=== PATIENT | female | born 1980 | race Caucasian/White ===

== ENCOUNTER → 2020-06-15 14:26 | Outpatient (CLI) | payer BC, SELFPAY ==
--- NOTE | ~2020-06-15 | XR_ITS ---
EXAMINATION: XR toe 3rd LT min 2V DATE: 06/15/2020 14:56 INDICATION: Unspecified injury to the left third toe with pain at the mid to distal to TECHNIQUE: Dorsal plantar, lateral and 2 oblique views of the left third were obtained. COMPARISON: None FINDINGS: Nondisplaced small intra-articular avulsion fracture at the dorsal rim of the third distal phalanx. N o significant fracture gap or incongruity at the articular surface. No periosteal reaction or other p roductive changes of healing yet apparent. No other fractures identified. Joint spaces are normal. So ft tissues are unremarkable. IMPRESSION: Nondisplaced intra-articular dorsal avulsion fracture at the base of the left third distal phalanx. Reviewed, dictated and finalized at location B. IAGE AND FAMILY THERAPIST IMPRESSION: Nondisplaced intra-articular dorsal avulsion fracture at the base of the left t hird distal phalanx.
== END ==
PROVIDERS: PCP Physician Assistant; Visit Provider Physician Assistant
DX: S92.535A Nondisplaced fracture of distal phalanx of left lesser toe(s), initial encounter for closed fracture (principal); X58.XXXA Exposure to other specified factors, initial encounter
CPT/HCPCS: 73660

== ENCOUNTER → 2023-06-03 15:32 | Outpatient (CLI) | payer BC, SELFPAY ==
--- NOTE | ~2023-06-03 | US_ITS ---
EXAMINATION: US thyroid DATE: 06/03/2023 16:25 INDICATION: Neck nodule. TECHNIQUE: Multiple ultrasound images of the thyroid were obtained. COMPARISON: None. FINDINGS: The right thyroid lobe measures 5.7 x 1.8 x 1.7 cm. The left thyroid lobe measures 6.5 x 1.7 x 2.0 c m. In the left thyroid lobe, there is a 9 mm mixed cystic and solid, isoechoic, wider than tall nodu le with smooth margin without echogenic foci (TI-RADS TR2). In the left thyroid lobe, there is a 7 mm solid, hypoechoic, wider than tall nodule with ill-defined margin without echogenic foci (TR4). In t he left thyroid lobe, there is a 3.1 cm solid, hypoechoic, aonhx-fpvf-yikt nodule with ill-defined ma rgin without echogenic foci (TR4). There are multiple nodules measuring up to 4 mm in right thyroid l obe. IMPRESSION: 1. Multinodular goiter. Ultrasound-guided fine-needle aspiration of the 3.1 cm left thyroid nodule is recommended. Reviewed, dictated and finalized at location E. NISTRATIVE STAFF SUPERVISOR
== END ==
PROVIDERS: PCP Internal Medicine; Visit Provider Internal Medicine
DX: E04.2 Nontoxic multinodular goiter (principal); R22.1 Localized swelling, mass and lump, neck
CPT/HCPCS: 76536

== ENCOUNTER 2025-05-06 16:46 | Emergency (ER) | payer BC, SELFPAY ==
--- OUTSIDE RECORDS SUMMARY | 2025-05-06 16:48 | XMS_ITS | Encounter Summary ---
Author Organization [facility] Address [facility]6 [place] [address] Care Team Providers Care Manager Aerospace Name Role Phone Ruth Dhillon MD Unavailable [phone] Gino Slaughter MD Primary Care Provider [phone] Miguel Baires MD Unavailable [phone] Encounter Details Date Type Department Care Team (Latest Contact Info) Description 06/04/2023 ATG Accesst Message Enc [facility] Medical Group Multispecialty Care - [place] [address] [address] [address] [place] [address] Gino Slaughter MD 1188 [facility] [address] [place] [address] Thyroid Ultrasound Social History Tobacco Use Types Packs/Day Years Used Date Smoking Tobacco: Never Smokeless Tobacco: Never Comments:Counseled by Dr. 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 [address] [place] [address] 05/30/2025 3:40 PM HARDWARE ASSEMBLER Office Visit [facility] Medical Group Multispecialty Care - [place] [address] [address] [address] [place], [place] [address] Gino Slaughter MD [address] [place] [address] 06/02/2025 11:30 AM HARDWARE ASSEMBLER [facility] [address] [place] [address] Britney Turner, FAMILY AND CONSUMER SCIENCES TEACHER 3 [facility], [facility] [address] [place] [address] documented as of this encounter Visit Diagnoses Not on filedocumented in this encounter Additional Health Concerns Assessment Noted Time PHQ-9 Depression Total Score: 0 06/01/19 24 1:52 PM HARDWARE ASSEMBLER documented as of this encounter Care Teams Manager Aerospace Relationship Specialty [place] [address] [place] [address] [address] [place] [address] PCP - General INTERNAL MEDICINE 12/26/20 Ruth Dhillon MD [facility]. [address] [place] [address] [place] Atm Mechanic CARDIOVASCULAR DISEASE 10/17/15 Miguel Baires MD Three [facility]. [facility] [address] [place], [place] [address] Toni Atm Mechanic CLINICAL CARDIAC ELECTROPHYSIOLOGY 03/20/25 documented as of this encounter
--- OUTSIDE RECORDS SUMMARY | 2025-05-06 16:48 | XMS_ITS | Encounter Summary ---
Author Organization [facility] Address [facility] [place] [address] Care Team Providers Care Cook Pie Name Role Phone Ruth Dhillon MD Unavailable [phone] Gino Slaughter MD Primary Care Provider [phone] Miguel Baires MD Unavailable [phone] Encounter Details Date Type Department Care Team (Late st Contact Info) Description 03/08/2023 MyChart Message Enc [facility] Medical Group Multispecialty Care - [place] [address] [place] [address] [address] [place] [address] Gino Slaughter MD 1188 [facility] [address] [place] [address] SIBO Social History Tobacco Use Types Packs/Day Years Used Date Smoking Tobacco: Never Smokeless Tobacco: Never Comments:Counseled by Dr. 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 [address] [place] [address] 05/30/2025 3:40 PM CIRCUS LABORER Office Visit [facility] Medical Group Multispecialty Care - [place] [address] [address] [address] [place], [place] [address] Gino Slaughter MD [address] [place] [address] 06/02/2025 11:30 AM CIRCUS LABORER [facility] [place] [facility] [address] [place] [address] Britney Turner, PARTS DATA WRITER 3 [facility], [facility] [address] [place] [address] documented as of this encounter Visit Diagnoses Not on filedocumented in this encounter Additional Health Concerns Assessment Noted Time PHQ-9 Depression Total Score: 0 11/14/19 22 8:34 AM CDT documented as of this encounter Care Teams Cook Pie Relationship Specialty Start Date End Date Gino Slaughter MD [address] [place] [address] PCP - General INTERNAL MEDICINE 12/26/20 Ruth Dhillon MD [facility]. [address] [place] [address] [place] Humanities Department Chair CARDIOVASCULAR DISEASE 10/17/15 Miguel Baires MD Three [facility]. [address] [place] [address] [place] Humanities Department Chair CLINICAL CARDIAC ELECTROPHYSIOLOGY 03/20/25 documented as of this encounter
--- OUTSIDE RECORDS SUMMARY | 2025-05-06 16:48 | XMS_ITS | Encounter Summary ---
Author Organization [facility] Address [facility] [place] [address] Care Team Providers Care Software Developer Name Role Phone Ruth Dhillon MD Unavailable [phone] Gino Slaughter MD Primary Care Provider [phone] Miguel Baires MD Unavailable [phone] Encounter Details Date Type Department Care Team (Late st Contact Info) Description 04/07/2024 MyChart Message Enc [facility] Medical Group Multispecialty Care - [place] [address] [address] [address] [place] [address] Gino Slaughter MD [address] [place] [address] [address] [place] [address] Prescription Social History Tobacco Use Types Packs/Day Years [...] Sex Assigned at Female 07/01/2024 2:14 PM TELEVISION ANNOUNCER Legal Sex Female 6:22 PM CDT Gender Identity Female 07/01/2024 2:24 PM TELEVISION ANNOUNCER Sexual Orientation Straight 07/01/2024 2: 24 PM TELEVISION ANNOUNCER 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. [address] [place] [address] 05/30/2025 3:40 PM TELEVISION ANNOUNCER Office Visit [facility] Medical Group Multispecialty Care - [place] [address] [address] [address] [place], [place] [address] Gino Slaughter MD [address] [place] [address] 06/02/2025 11:30 AM TELEVISION ANNOUNCER [facility], [facility] [address] [place] [address] Britney Turner, SHRINKER 3 [facility], [facility] [address] [place] [address] documented as of this encounter Visit Diagnoses Not on filedocumented in this encounter Additional Health Concerns Assessment Noted Time PHQ-9 Depression Total Score: 0 06/01/19 24 1:52 PM TELEVISION ANNOUNCER documented as of this encounter Care Teams Software Developer Relationship Specialty [place] [address] [place] [address] [address] [place] [address] PCP - General INTERNAL MEDICINE 12/26/20 Ruth Dhillon MD [facility]. [address] [place] [address] [place] Vending Machine Collector CARDIOVASCULAR DISEASE 10/17/15 Miguel Baires MD Three [facility]. [facility] [address] [place], [place] [address] Toni Vending Machine Collector CLINICAL CARDIAC ELECTROPHYSIOLOGY 03/20/25 documented as of this encounter
--- OUTSIDE RECORDS SUMMARY | 2025-05-06 16:48 | XMS_ITS | Encounter Summary ---
Author Organization [facility] Address [facility] [place] [address] Care Team Providers Care Mutual Fund Manager Name Role Phone Ruth Dhillon MD Unavailable [phone] Gino Slaughter MD Primary Care Provider [phone] Miguel Baires MD Unavailable [phone] Encounter Details Date Type Department Care Team (Late st Contact Info) Description 09/08/2022 MyChart Message Enc [facility] Medical Group Multispecialty Care - [place] [address] [place] [address] [address] [place] [address] Gino Slaughter MD 1188 [facility] [address] [place] [address] Sinus Infection Social History Tobacco Use Types Packs/Day Years [...] Sex Assigned at Female 07/01/2024 2:14 PM HEAD INSPECTOR Legal Sex Female 6:22 PM CDT Gender Identity Female 07/01/2024 2:24 PM HEAD INSPECTOR Sexual Orientation Straight 07/01/2024 2: 24 PM HEAD INSPECTOR 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 [address] [place] [address] 05/30/2025 3:40 PM HEAD INSPECTOR Office Visit [facility] Medical Group Multispecialty Care - [place] [address] [address] [address] [place], [place] [address] Gino Slaughter MD [address] [place] [address] 06/02/2025 11:30 AM HEAD INSPECTOR Office Visit [place] [facility], [facility] [address] [place] [address] Britney Turner, TEACHER EARLY CHILDHOOD DEVELOPMENT 3 [facility], [facility] [address] [place] [address] documented as of this encounter Visit Diagnoses Not on filedocumented in this encounter Additional Health Concerns Assessment Noted Time PHQ-9 Depression Total Score: 0 11/14/19 22 8:34 AM CDT documented as of this encounter Care Teams Mutual Fund Manager Relationship Specialty Start Date End Date Gino Slaughter MD [address] [place] [address] PCP - General INTERNAL MEDICINE 12/26/20 Ruth Dhillon MD [facility]. [address] [place] [address] [employer] Principal CARDIOVASCULAR DISEASE 10/17/15 Miguel Baires MD Three [facility]. [place] [address] [place] [address] [employer] Principal CLINICAL CARDIAC ELECTROPHYSIOLOGY 03/20/25 documented as of this encounter
--- OUTSIDE RECORDS SUMMARY | 2025-05-06 16:48 | XMS_ITS | Clinical Summary ---
Author Organization [facility] Administrative Offices Address [address] [place] [address] Care Team Providers Care Extender Name Role Phone Brenda Mcmahon MD Primary Care Provider Unavailab le Social History Tobacco Use Types Packs/Day Years Used Date Smoking Tobacco: Never Assessed Comments Unknown Sex and Gender Information Value Date Recorded Sex Assigned at Not on file Legal Sex Female 6:10 AM PROGRESSIVE ASSEMBLER AND FITTER Gender Identity Not on file Sexual Orientation Not on file Plan of Treatment Health Maintenance Due Date Last Done Comments DTAP/TDAP/TD VACCINES (1 - Tdap) 2001 HEPATITIS B VACCINES (1 of 3 - 19+ 3-dose series) 09/15 HPV/Cotest (21-29) 10/01/2003 CERVICAL CANCER SCREENING 2012 HPV/Cotest (30-65) 2012 PAP SMEAR 2012 BREAST CANCER SCREENING 2022 INFLUENZA VACCINE (#1) 2024 HPV VACCINES (No Doses Required) Completed Care Teams Extender Relationship Specialty Start Date End Date Brenda Mcmahon MD PCP - General Family Practice 11/18/11
--- OUTSIDE RECORDS SUMMARY | 2025-05-06 16:48 | XMS_ITS | Encounter Summary ---
Author Organization [facility] Address [facility] [place] [address] Care Team Providers Care Bone Char Kiln Operator Name Role Phone Ruth Dhillon MD Unavailable [phone] Gino Slaughter MD Primary Care Provider [phone] Miguel Baires MD Unavailable [phone] Encounter Details Date Type Department Care Team (Late st Contact Info) Description 02/10/2025 Bizily Message Enc [facility] THREE [facility], [facility] [address] [place] [address] Ruth Dhillon MD [facility]. [facility] [address] [place] [address] Follow up from appointment Social History Tobacco Use Types Packs/Day Years Used Date Smoking Tobacco: Never Smokeless Tobacco: Never Comments:Counseled by Dr. Awan ate Alcohol Use Standard Drinks/Week Comments Not Currently 0 (1 standard drink = 0.6 oz pur e alcohol) Socially 2/ month PHQ-2 Answer Date Recorded Patient Health Questionnaire-2 Score 0 06/01/2024 Comments No Sex and Gender Information Value Date Recorded Sex Assigned at Female 07/01/2024 2:14 PM DIE SINKER APPRENTICE Legal Sex Female 6:22 PM CDT Gender Identity Female 07/01/2024 2:24 PM DIE SINKER APPRENTICE Sexual Orientation Straight 07/01/2024 2: 24 PM DIE SINKER APPRENTICE Occupation Industry Job Start Date Job End Date [employer] Not on file Not on file Not on file documented as of this encounter Plan of Treatment Upcoming Encounters Date Type Department Care Team (Late st Contact Info) Description 05/15/2025 10:30 AM DIE SINKER APPRENTICE Office Visit [facility] THREE [facility], [address] [place] [address] Jennifer Eng, STRAW HAT MACHINE OPERATOR Three [facility]. [address] [place] [address] 05/30/2025 3:40 PM DIE SINKER APPRENTICE Office Visit [facility] Medical Group Multispecialty Care - [place] [address] [address] [address] [place], [place] [address] Gino Slaughter MD [address] [address] 06/02/2025 11:30 AM DIE SINKER APPRENTICE Office Visit [facility] [facility] [address] [place] [address] Britney Turner, STRAW HAT MACHINE OPERATOR 3 [facility], [facility] [address] [place] [address] documented as of this encounter Visit Diagnoses Not on filedocumented in this encounter Additional Health Concerns Assessment Noted Time PHQ-9 Depression Total Score: 1 06/01/19 25 4:58 PM DIE SINKER APPRENTICE documented as of this encounter Care Teams Bone Char Kiln Operator Relationship Specialty Start Date End Date Gino Slaughter MD 1188 [facility] [address] [place], [place] [address] PCP - General INTERNAL MEDICINE 12/26/20 Ruth Dhillon MD Three [facility]. [address] [place] [address] Toni Executive Director Sheltered Workshop CARDIOVASCULAR DISEASE 10/17/15 Miguel Baires MD Three [facility]. [facility] [address] [place] [address] Toni Executive Director Sheltered Workshop CLINICAL CARDIAC ELECTROPHYSIOLOGY 03/20/25 documented as of this encounter
--- OUTSIDE RECORDS SUMMARY | 2025-05-06 16:48 | XMS_ITS | Encounter Summary ---
Author Organization [facility] Address [facility] [place] [address] Care Team Providers Care Fly Finisher Name Role Phone Ruth Dhillon MD Unavailable [phone] Gino Slaughter MD Primary Care Provider [phone] Miguel Baires MD Unavailable [phone] Encounter Details Date Type Department Care Team (Late st Contact Info) Description 04/22/2023 MyChart Message Enc [facility] Medical Group Multispecialty Care - [place] [address] [address] [address] [place] [address] Gino Slaughter MD 1188 [facility] [address] [place] [address] Covid Social History Tobacco Use Types Packs/Day Years [...] Sex Assigned at Female 07/01/2024 2:14 PM RESOURCING ADVISOR Legal Sex Female 6:22 PM CDT Gender Identity Female 07/01/2024 2:24 PM RESOURCING ADVISOR Sexual Orientation Straight 07/01/2024 2: 24 PM RESOURCING ADVISOR 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 [address] [place] [address] 05/30/2025 3:40 PM RESOURCING ADVISOR Office Visit [facility] Medical Group Multispecialty Care - [place] [address] [address] [place], [place] [address] Gino Slaughter MD [address] [place] [address] 06/02/2025 11:30 AM RESOURCING ADVISOR Office [facility] [place] [facility], [facility] [address] [place] [address] Britney Turner, MAC DEVELOPER [address] [facility] [place], [facility] [address] [place] [address] documented as of this encounter Visit Diagnoses Not on filedocumented in this encounter Additional Health Concerns Assessment Noted Time PHQ-9 Depression Total Score: 0 11/14/19 22 8:34 AM CDT documented as of this encounter Care Teams Fly Finisher Relationship Specialty Start Date End Date Gino Slaughter MD [address] [place] [address] PCP - General INTERNAL MEDICINE 12/26/20 Ruth Dhillon MD [facility]. [address] [place] [address] [place] Roughener CARDIOVASCULAR DISEASE 10/17/15 Miguel Baires MD Three [facility]. [address] [place] [address] [place] Roughener CLINICAL CARDIAC ELECTROPHYSIOLOGY 03/20/25 documented as of this encounter
--- OUTSIDE RECORDS SUMMARY | 2025-05-06 16:48 | XMS_ITS | Encounter Summary ---
Author Organization [facility] Address [facility] [place] [address] Care Team Providers Care Production Assembly Operator Name Role Phone Ruth Dhillon MD Unavailable [phone] Gino Slaughter MD Primary Care Provider [phone] RustMiguel bartlett MD Unavailable [phone] Encounter Details Date Type Department Care Team (Late Contact Info) Description 04/30/2023 B[facility]stalk [facility] [address] [place] [address] 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 [address] [place] [address] 05/30/2025 3:40 PM METAL FURNITURE REPAIRER Office Visit [facility] Medical Group Multispecialty Care - [place] [address] [address] [address] [place] [address] Gino Slaughter MD 1188 [facility] [address] [place] [address] 06/02/2025 11:30 AM METAL FURNITURE REPAIRER Office Visit [place] [facility] THREE [facility], [address] [place] [address] Britney Turner, REVENUE DIRECTOR 3 [facility], [address] [place] [address] documented as of this encounter Visit Diagnoses Not on filedocumented in this encounter Additional Health Concerns Assessment Noted Time PHQ-9 Depression Total Score: 0 11/14/19 22 8:34 AM CDT documented as of this encounter Care Teams Production Assembly Operator Relationship Specialty [place] [address] [place] [address] [address] [place] [address] PCP - General INTERNAL MEDICINE 12/26/20 Ruth Dhillon MD [facility]. [address] [place] [address] [place] Surveillance System Monitor CARDIOVASCULAR DISEASE 10/17/15 Miguel Baires MD [facility]. [address] [place] [address] Toni Surveillance System Monitor CLINICAL CARDIAC ELECTROPHYSIOLOGY 03/20/25 documented as of this encounter
--- OUTSIDE RECORDS SUMMARY | 2025-05-06 16:48 | XMS_ITS | Encounter Summary ---
Author Organization [facility] - [facility] Address Formerly [facility] [place] [address] Care Team Providers Care Defense Analyst Name Role Phone Ruth Dhillon MD Unavailable [phone] Gino Slaughter MD Primary Care Provider [phone] Miguel Baires MD Unavailable [phone] Encounter Details Date Type Department Care Team (Latest Contact Info) Description 03/09/2025 Results Follow-Up [facility] - [place] [address] [address] [place] [address] Gino Slaughter MD [address] [address] CBC W/DIFF AUTOMATED, COMPREHENSIVE METABOLIC PANEL, LIPID PANEL Social History Tobacco Use Types Packs/Day Years [...] Sex Assigned at Female 07/01/2024 2:14 PM [employer] Legal Sex Female 6:22 PM CDT Gender Identity Female 07/01/2024 2:24 PM [employer] Sexual Orientation Straight 07/01/2024 2: 24 PM [employer] 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 [address] [place] [address] 05/30/2025 3:40 PM [employer]ACKAGING SAL[employer] Office Visit [facility] - [place] [address] [place] [address] [address] [place] [address] Gino Slaughter MD [address] [facility] [address] [place] [address] 06/02/2025 11:30 AM [employer]AGING SAL[employer] Office Visit [facility] [address] [place] [address] Britney Turner, EXPLOSIVE TECHNICIAN [address] [facility] [address] [place] [address] documented as of this encounter Visit Diagnoses Not on filedocumented in this encounter Additional Health Concerns Assessment Noted Time PHQ-9 Depression Total Score: 1 06/01/19 25 4:58 PM [employer] documented as of this encounter Care Teams Defense Analyst Relationship Specialty Start Date End Date Gino Slaughter MD [address] [facility] [address] [place], [place] [id number] PCP - General INTERNAL MEDICINE 12/26/20 Ruth Dhillon MD Three [facility]. [address] [place] [address] Toni Buckle Sorter CARDIOVASCULAR DISEASE 6/1/16 Miguel Baires MD Three [facility]. [facility] [address] [place] [address] Toni Buckle Sorter CLINICAL CARDIAC ELECTROPHYSIOLOGY 03/20/25 documented as of this encounter
--- OUTSIDE RECORDS SUMMARY | 2025-05-06 16:48 | XMS_ITS | Data Portability ---
Author Organization [employer] , [facility] Address [address] [place] [address] Assessment No assessment recorded. Plan of Treatment Reminders Order Date Submit Date Provider Last Modified By Organization Details Last Modified Time Details Appointments None recorded. Lab HPV E6+E7 mRNA, qualitativ e PCR, cervix 2023 024 [employer] [facility], [address] [place], [address], 4 09:05:42 pap, LB 2023 024 [employer] [facility], [address] [place], [address], 4 10:16:29 HPV E6+E7 mRNA, qualitativ e PCR, cervix 2021 022 [employer] [facility], [address] [place], [address], 2 17:54:54 pap, LB 2021 022 [employer] [facility], [address] [place], [address], 2 16:33:12 Referral gynecologi c surgery referral - Stage 4 endometrio sis 2021 022 priscila 3 Robert Grant MD, [address], [address], [place], [address], 2 16:08:49 Procedures None recorded. Surgeries None recorded. Imaging MAMMO, screening, digital, bilateral 2023 [facility], [address] [place], [address], 4 16:20:39 US, transvagin al 2021 022 Not available 07:57:47 Medication Orders Slynd 4 mg (28) tablet [address] [id number], [address] [place], [place], [id number], 4 09:59:38 Seasonique 0.15 mg-30 mcg (84)/10 mcg(7) tablets,3 month dose pack [address] [facility], [address] [place], [place], [id number], 4 09:23:49 Ortho Micronor 0.35 mg tablet [address] [facility]09743, [address] [place] [address], [id number], 4 09:23:57 Orilissa 150 mg tablet [address], [address] [place] [address], [place], [address], 10:09:35 Patient TargetsNo targets recorded. Patient Instructions Encounter Date Encounter Id Patient Instructions Last Modified By Organization Details Last Modified Time 07/02/2021 [id number] body mass index: care instructions Not available 07/02/2021 11:26:15 learning about depression screening Not available 07/02/2021 11:26:16 A healthy lifestyle: care instructions Not available 07/02/2021 11:26:15 substance use disorder: care instructions Not available 07/02/2021 11:26:16 control counseling Not available 07/02/2021 11:26:15 08/20/2023 [id number] A healthy lifestyle: care instructions Not available 08/20/2023 09:59:24 substance use disorder: care instructions Not available 08/20/2023 09:59:24 Following the [employer] Food Guide: Care Instructions Not available 08/20/2023 09:59:24 exercise program : getting started Not available 08/20/2023 09:59:24 - Continue to follow up with [facility] regarding endometriosis and hysterectomy - Consider alternative control options if necessary - Increase exercise intensity, incorporate more weight lifting, and aim for 10,000 steps per day - Consult a senior accounting associate for guidance on diet and weight management - Follow up with diagnostic testing and consultation for the partial lung collapse Not available 08/20/2023 11:46:05 Not available 2023 11:45:38 Reason for Referral Gynecologic Surgery Referral for Endometriosis of pelvis Stage 4 endometriosis Referring Physician: Kiana Ruiz, PLANNING SUPERVISOR, Encounter Date: 08/13/2021 Results Created Date Observation Date Name Description Value Unit Range Abnormal Flag Note LastModifiedBy Organization Detail LastModifiedTime 08/22/19 24 08/21/2023 HPV HIGH RISK HPV high risk Negati ve negati ve normal The HPV High Risk assay is inten ded for use as co-te sting with cytol ogy and not as a subst itute for regul ar cervi hilario cytol ogy scree virginie. This assay is not inten ded for use as a scree virginie devic e for women under age 30 with mason l cervi hilario cytol ogy. Not Available [address], [address], 08/22/2023 09:05:42 07/02/19 22 07/03/2021 HPV HIGH RISK HPV high risk Negati ve negati ve The HPV High Risk assay is inten ded for use as co-te sting with cytol ogy and not as a subst itute for regul ar cervi hilario cytol ogy scree virginie. This assay is not inten ded for use as a scree virginie devic e for women under age 30 with mason l cervi hilario cytol ogy. Not Available [facility] [address] [place], [address], 07/03/2021 17:54:54 07/02/19 22 07/08/2021 THINP REP TIS PAP clinical information: normal Infor matio n not provi ded Not Available [address] [address] [place], [address], 07/08/2021 16:33:12 07/02/19 22 07/08/2021 THINP REP TIS PAP LMP: normal NONE GIVEN Not Available [address] [address] [place], [address], 07/08/2021 16:33:12 07/02/19 22 07/08/2021 THINP REP TIS PAP prev. Pap: normal NONE GIVEN Not Available [facility] [address] [address] [place], [address], 07/08/2021 16:33:12 07/02/19 22 07/08/2021 THINP REP TIS PAP prev. BX: normal NONE GIVEN Not Available [address] [address] [place], [address], 07/08/2021 16:33:12 07/02/19 22 07/08/2021 THINP REP TIS PAP source: normal Cervi x Not Available [employer] [address] [address] [place], [address], 07/08/2021 16:33:12 07/02/19 22 07/08/2021 THINP REP TIS PAP statement of adequacy: normal Satis facto ry for evalu ation . Endoc ervic al/tr ansfo rmati on zone compo nent prese nt. Age and/o r menst rual statu s not provi ded Not Available [facility] [address] [place], [address], 07/08/2021 16:33:12 07/02/19 22 07/08/2021 THINP REP TIS PAP general categorizati on: abnormal EPITH ELIAL CELL ABNOR MALIT Y Not Available [address] [address] [place], [address], 07/08/2021 16:33:12 07/02/19 22 07/08/2021 THINP REP TIS PAP interpretati on/result: abnormal Atypi hilario Squam ous Cells of Undet ermin ed Signi fican ce (ASC- US) Not Available [address] [address] [place], [address], 07/08/2021 16:33:12 07/02/19 22 07/08/2021 THINP REP TIS PAP comment: normal This Pap test has been evalu ated with darío osei techn ology . Not Available [address] [address] [place], [address], 07/08/2021 16:33:12 07/02/19 22 07/08/2021 THINP REP TIS PAP cytotechnolo gist: normal MSJ, CT( CP) CT Scree virginie locat ion: [facility] [address] [facility] [place] [address] Not Available [address] [address] [place], [address], 07/08/2021 16:33:12 07/02/19 22 07/08/2021 THINP REP TIS PAP pathologist: normal Georgina Landa M.D. Board Certi fied in Anato samantha Patho logy, Clini hilario Patho logy and Cytop athol ogy, Speci conner edwards in Urolo gic Patho logy [phone] (elec troni c signa ture) Not Available [address] [address] [place], [address], 07/08/2021 16:33:12 07/02/19 22 07/08/2021 THINP REP TIS PAP comment EXPLA NATALMAS Y NOTE: The Pap is a scree virginie test for cervi hilario cance r. It is not a diagn ostic test and is subje ct to false negat john and false posit john resul ts. It is most relia ble when a satis facto ry sampl e, regul pushpa obtai memo, is submi tted with relev ant clini hilario findi ngs and histo ry, and when the Pap resul t is evalu ated along with histo margarito and curre nt clini hilario infor matio n. Not Available [address], [address], 07/08/2021 16:33:12 08/20/19 24 08/25/2023 THINP REP TIS PAP clinical information: normal None given Not Available [address], [address], 08/25/2023 10:16:29 08/20/19 24 08/25/2023 THINP REP TIS PAP LMP: normal NONE GIVEN Not Available [address], [address], 08/25/2023 10:16:29 08/20/19 24 08/25/2023 THINP REP TIS PAP prev. Pap: normal NONE GIVEN Not Available [address], [address], 08/25/2023 10:16:29 08/20/19 24 08/25/2023 THINP REP TIS PAP prev. BX: normal NONE GIVEN Not Available [address], [address], 08/25/2023 10:16:29 08/20/19 24 08/25/2023 THINP REP TIS PAP source: normal Cervi x Not Available [address] [place], [address], 08/25/2023 10:16:29 08/20/19 24 08/25/2023 THINP REP TIS PAP statement of adequacy: normal Satis facto ry for evalu ation . Endoc ervic al/tr ansfo rmati on zone compo nent prese nt. Age and/o r menst rual statu s not provi ded Not Available [address], [address], 08/25/2023 10:16:29 08/20/19 24 08/25/2023 THINP REP TIS PAP interpretati on/result: normal Cytol ogy Resul ts: Negat john for intra epith elial lesio n or muriel wilburn . Not Available [address] [address] [place], [address], 08/25/2023 10:16:29 08/20/19 24 08/25/2023 THINP REP TIS PAP comment: normal This Pap test has been evalu ated with compu ter ksenia ba techn ology . Not Available [address], [address], 08/25/2023 10:16:29 08/20/19 24 08/25/2023 THINP REP TIS PAP cytotechnolo gist: normal JONES, CT( CP) CT Scree [place]ie locat ion: [address] [place] [address] Not Available [facility] [address] [address] [place], [address], 08/25/2023 10:16:29 08/20/19 24 08/25/2023 THINP REP TIS PAP review cytotechnolo gist: normal MMD, CT( CP) CT Scree virginie Locat ion: [address] [address] [address] [place] [address] Not Available [facility] [address] [address] [place], [address], 08/25/2023 10:16:29 08/20/19 24 08/25/2023 THINP REP TIS PAP comment EXPLA NATOR Y NOTE: The Pap is a scree virginie test for cervi hilario cance r. It is not a diagn ostic test and is subje ct to false negat john and false posit john resul ts. It is most relia ble when a satis facto ry sampl e, regul pushpa obtai memo, is submi tted with relev ant clini hilario findi ngs and histo ry, and when the Pap resul t is evalu ated along with histo margarito and curre nt clini hilario infor matio n. Not Available [address] [address] [place], [address], 08/25/2023 10:16:29 07/20/19 22 07/18/2021 US, trans vagin al No observ ation record ed. [address], [place], [address], 06/02/2022 16:57:45 08/03/19 22 07/31/2021 elect hector isaac am No observ ation record ed. [address] [facility], [address], 08/03/2021 09:14:38 Result Notes None recorded. Problems Name Problem SNOMED Code Status Onset Date Resolution Date Notes Provider Name and Address Organization Details Recorded Time Prematur e beats 86339475 Completed 201203/31/2014 PVCs; Progress : Stable Added By: Brigette Ortega Add to Current Problems : NO ProblemS tatus: Resolve Not Available [facility] 2 19:51:40 Medical examinat ion for suspecte d conditio n Completed 201203/31/2014 Suspecte d anomaly not found; Progress : Stable Added By: Jimena Rowland Add to Current Problems : NO ProblemS tatus: Resolve Not Available [facility] 2 21:27:26 Abdomina l pain 20743894 Completed 201211/26/2012 Abdomina l cramping ; Progress : Stable Added By: Sergio Herrera Add to Current Problems : NO ProblemS tatus: Resolve Not Available [facility] 2 21:27:27 Exposure to organism Completed 201211/26/2012 Herpes Exposure ; Location : None Progress : Stable Added By: Cielo Mcgowan Add to Current Problems : NO ProblemS tatus: Resolve Not Available [facility] 2 21:27:25 IVF - in-vitro fertiliz ation pregnanc y [id number] 102 Completed 201211/26/2012 Pregnanc y resultin g from assisted reproduc tive technolo gy; Location : None Progress : Stable Added By: Cielo Mcgowan Add to Current Problems : NO ProblemS tatus: Resolve Pregnanc y resultin g from assisted reproduc tive technolo gy; Location : None Progress : Stable Added By: Cielo Mcgowan Add to Current Problems : NO ProblemS tatus: Resolve; Start Date : 10/14/19 13 Not Available [facility] 2 21:27:27 Genital herpes simplex 95519180 Completed 201211/26/2012 Herpes genital infectio n, unspecif ied; Progress : Stable Added By: Cielo Mcgowan Add to Current Problems : NO ProblemS tatus: Resolve Not Available [facility] 2 21:27:25 Routine antenata l care Completed 201211/26/2012 Pregnanc y; Location : None Progress : Stable Added By: Kiana Ruiz Add to Current Problems : NO ProblemS tatus: Resolve Pregnanc y; Location : None Progress : Stable Added By: Cielo Mcgowan Add to Current Problems : NO ProblemS tatus: Resolve; Start Date : 10/26/19 13 Pregn walter; Location : None Progress : Stable Added By: Kiana Ruiz Add to Current Problems : NO ProblemS tatus: Resolve; Start Date : 10/22/19 13 Pregn walter; Location : None Progress : Stable Added By: Kiana Ruiz Add to Current Problems : NO ProblemS tatus: Resolve; Start Date : 09/17/19 13 Not Available [facility] 2 19:51:40 Vaginiti s and vulvovag initis Completed 201507/24/2015 Vaginiti s; Severity : Moderate Progress : Stable Added By: Lacey Vazquez Add to Current Problems : NO ProblemS tatus: Resolve Not Available [facility] 1 05:33:38 [id number]106 Completed 201501/22/2016 Encounte r for supervis ion of other normal pregnanc y, third trimeste r; Progress : Stable Added By: Brooke Samaniego Add to Current Problems : NO ProblemS tatus: Resolve Not Available [facility] 2 21:27:27 Gestatio n period, 38 weeks 22466248 Completed 201501/22/2016 38 weeks gestatio n of pregnanc y; Progress : Stable Added By: Brooke Samaniego Add to Current Problems : NO ProblemS tatus: Resolve Not Available [facility] 2 21:27:27 Acute vaginiti s 54272707 Completed 201507/24/2015 Acute vaginiti s; Progress : Stable Added By: Lacey Vazquez Add to Current Problems : NO ProblemS tatus: Resolve Vaginiti s; Location : None Progress : Stable Added By: Lacey Vazquez Add to Current Problems : YES ProblemS tatus: Resolve Not Available [facility] 2 21:27:25 Normal pregnanc y 38786901 Completed 201501/22/2016 Medical visit for normal pregnanc y; Location : None Progress : Stable Added By: Brooke Samaniego Add to Current Problems : YES ProblemS tatus: Resolve Not Available [facility] 2 21:27:26 Antenata l screenin g Completed 201501/22/2016 Antenata l screenin g; unspecif ied; Location : None Progress : Stable Added By: Brooke Samaniego Add to Current Problems : YES ProblemS tatus: Resolve Encounte r for antenata l screenin g of mother; Progress : Stable Added By: Brooke Samaniego Add to Current Problems : NO ProblemS tatus: Resolve Antenata l screenin g for streptoc occus B; Location : None Progress : Stable Added By: Hannah Woodall Add to Current Problems : NO ProblemS tatus: Resolve; Start Date : 10/22/19 13 Not Available [facility] 2 21:27:28 Right lower quadrant pain 359548689 Completed 201510/23/2015 RLQ abdomina l pain; Progress : Stable Added By: Mohini Abbott Add to Current Problems : NO ProblemS tatus: Resolve Right lower quadrant pain; Progress : Stable Added By: Mohini Abbott Add to Current Problems : NO ProblemS tatus: Resolve Not Available [facility] 2 21:27:[address] Concept Completed 201501/22/2016 Decrease d movement s, third trimeste r, fetus 1; Progress : Stable Added By: Lacey Vazqeuz Add to Current Problems : NO ProblemS tatus: Resolve Not Available [facility] 2 21:27:27 Maternal care for diminish ed movement s Completed 201501/22/2016 Decrease d movement s, antepart um conditio n or complica tion; Progress : Stable Added By: Lacey Vazquez Add to Current Problems : NO ProblemS tatus: Resolve Not Available [facility] 2 21:27:[address] Concept Completed 201501/22/2016 Encounte r for follow-u p examinat ion after complete d treatmen t for conditio ns other than malignan t neoplasm ; Progress : Stable Added By: Lacey Vazquez Add to Current Problems : NO ProblemS tatus: Resolve Not Available [facility] 2 21:27:26 Surgical follow-u p - normal [id number] Completed 201501/22/2016 Follow-u p exam followin g surgery; Location : None Severity : Moderate Progress : Stable Added By: Lacey Vazquez Add to Current Problems : YES ProblemS tatus: Resolve Follow-u p exam followin g surgery; Severity : Moderate Progress : Stable Added By: Mariya Richmond Add to Current Problems : NO ProblemS tatus: Resolve; Start Date : 11/27/19 13 Not Available [facility] 1 09:49:45 Postoper ative follow-u p visit Completed 201501/22/2016 Follow-u p exam followin g surgery; Location : None Progress : Stable Added By: Lacey Vazquez Add to Current Problems : YES ProblemS tatus: Resolve Not Available [facility] 2 19:51:40 Lochia finding Completed 201510/23/2016 Encounte r for routine postpart um follow-u p; Progress : Stable Added By: Lacey Vazquez Add to Current Problems : NO ProblemS tatus: Resolve Not Available [facility] 2 21:27:26 Postpart um care Completed 201510/23/2016 Visit for routine postpart um follow-u p; Location : None Progress : Stable Added By: Lacey Vazquez Add to Current Problems : YES ProblemS tatus: Resolve Visit for routine postpart um follow-u p; Location : None Progress : Stable Added By: Zully Chapa Add to Current Problems : NO ProblemS tatus: Resolve; Start Date : 01/04/20 13 Not Available [facility] 2 21:27:26 Secondar y dysmenor toño 01288932 Active 2021 Kiana Ruiz MD [address] [place] [address], [phone] , [facility] [employer] [facility] 2 22:15:39 History of endometr iosis [id number] 299187 Active 2021 Kiana Ruiz MD [address] [place] [address], [phone] , [facility] [employer] 2 14:56:45 Problem Notes None recorded. Procedures Surgical History Date Name Laterality Status Provider Name and Address Organization Details Recorded Time 2023 Date of Last Pap Smear completed Kiana Ruiz MD [address] [place] [address], [phone], [facility] [employer] 4 08:39:52 2021 laparoscopy completed Kiana Ruiz MD [address] [place] [address] [place], [address], [place] [facility] 2 15:24:13 2011 in vitro fertilization completed Niesha Aug[facility] 2 13:52:32 2011 hysterosalpingography completed Niesha [employer] 2 13:56:09 Bx of cervix w/scope leep completed Niesha [employer] [facility] 2 13:51:52 section completed Niesha Aug[facility] 2 13:52:45 operative procedure on knee completed Niesha [employer] 2 13:53:13 C Section completed Rabia Addison [facility] 2 11:06:33 Imaging Results None recorded. Procedure Notes None recorded. Medical Equipment None Reported. Allergies Allergen ID Allergen Name Allergen Category Reaction Reaction Severity Criticality Documentation Date Start Date Code Code System Note Provider Name and Address Organization Details Recorded Time 093752 Shellfish (substanc e) food,medi cation Not available Not available Not available 03/08/20212012 99237 9006 SNOMED Sever ity: Moder ate; Not Available [facility] 1 01:05:07 193853 spinach allergeni c extract food,medi cation Not available Not available Not available 03/08/20212012 39547 7 RxNorm Sever ity: Moder ate; Not Available [facility] 1 01:05:08 Medications Name Sig Start Date Stop Date Status Note LastModified by Organization Details LastModified Time clindamyc in HCl 300 mg capsule 1 tablet by mouth BID X 7 days. 06/22 completed Clindamy falguni HCl 300mg Capsules RxNorm: 383702 Allow Substitu tion: True Refill Denied: No Not Available Not Available Not Available ibuprofen 800 mg tablet 08/13 completed Not Available Not Available Not Available fluoxetin e 10 mg tablet 08/19 completed Not Available Not Available Not Available Vitamin tablet Take 1 taablet by mouth daily. 07/14 completed Multivit barber Tablet Allow Substitu tion: True Refill Denied: No Not Available Not Available Not Available oxycodone -acetamin ophen 5 mg-325 mg tablet TAKE 1 TO 2 TABLETS BY MOUTH EVERY 4 HOURS NEEDED FOR PAIN 08/19 completed Not Available Not Available Not Available alprazola m 0.25 mg tablet active Not Available Not Available Not Available estradiol 1 mg tablet active Not Available Not Available Not Available fluoromet holone 0.1 % eye drops,dunia pension SHAKE LIQUID AND INSTILL 1 DROP IN BOTH EYES EVERY DAY 08/19 completed Not Available Not Available Not Available docusate sodium 100 mg capsule TAKE 1 CAPSULE BY MOUTH TWICE DAILY NEEDED FOR CONSTIPA TION 08/19 completed Not Available Not Available Not Available sertralin e 25 mg tablet TAKE 1 TABLET BY MOUTH DAILY active Not Available Not Available No t Available Valtrex 500 mg tablet Take one tab by mouth twice daily for 5 days then one tab by mouth daily 01/23 completed Valtrex 500mg Tablet RxNorm: 846643 Allow Substitu tion: True Refill Denied: No Not Available Not Available Not Available lotepredn ol etabonate 0.5 % eye drops,dunia pension 08/19 completed Not Available Not Available Not Available norethind jacob (contrace ptive) 0.35 mg tablet Take 1 tablet every day by oral route. 08/19 completed Not Available Not Available Not Available ondansetr on 4 mg disintegr ating tablet 08/19 completed Not Available Not Available Not Available oxycodone 5 mg tablet 08/19 completed Not Available Not Available Not Available moxifloxa falguni 0.5 % eye drops INSTILL 1 DROP IN BOTH EYES TWICE DAILY 08/19 completed Not Available Not Available Not Available progester one 06/22 completed Progeste jacob Allow Substitu tion: True Refill Denied: No Refill DateOccu rred: 05/25/19 16 Not Available Not Available Not Available ibuprofen PRN 03/31 completed Ibuprofe n 800mg Tablet RxNorm: 551163 Allow Substitu tion: True Refill Denied: No Refill DateOccu rred: 11/27/19 13 Not Available Not Available Not Available Orilissa 150 mg tablet Take 1 tablet every day by oral route. 08/13 completed Not Available Not Available Not Available Simpesse 0.15 mg-30 mcg (84)/10 mcg(7) tablets,3 month dose pack TAKE 1 TABLET BY MOUTH EVERY DAY 08/19 completed Not Available Not Available Not Available Slynd 4 mg (28) tablet Take 1 tablet every day by oral route. 2023 active Not Available Not Available Not Avai lable COVID-19 test specimen collectio n TEST DIRECTED TODAY 07/02 completed Not Available Not Available Not Available Vitals Date Recorded Body height Body mass index (BMI) Body weight Body temperature Systolic And Diastolic Provider Name and Address Organization Details Last Updated DateTime 07/02/2021 175.26 cm 29.2 kg/m2 61136.2 9 g 97.9 [degF] 128/78 mm[Hg] Rabia Addison [facility] 11:11:36 Date Recorded Body height Provider Name an d Address Organization Details Last Updated DateTime 07/18/2021 175.26 cm Rabia Addison [facility] 07/18/2021 10:26:42 Date Recorded Body height Body mass index (BMI) Body weight Body temperature Systolic And Diastolic Provider Name and Address Organization Details Last Updated DateTime 08/13/2021 175.26 cm 26.8 kg/m2 23136.3 7 g 98 [degF] 122/76 mm[Hg] Rabia Addison [facility] 10:07:25 Date Recorded Body height Body mass index (BMI) Body weight Systolic And Diastolic Provider Name and Address Organization Details Last Updated DateTime 08/20/2023 175.26 cm 29.5 kg/m2 64962.47 g 126/70 mm[Hg] Rabia Addison [facility] 08/20/2023 09:22:19 Social History Question Answer Notes LastModified by Organizat ion Details LastModified Time Tobacco Smoking Status Never Smoker Rabia Addison [facility] 07/02/2021 11:06:33 Are You Blind Or Do You Have Difficulty Seeing? [id number] Information not available 08/20/2023 Are You Deaf Or Do You Have Serious Difficulty Hearing? No [email or web address] Information not available 08/20/2023 What Type Of Diet Are You Following? REGULAR [email or web address] Information not available 07/02/2021 How Many Children Do You Have? 2 [email or web address] Information not available 08/20/2023 Are There Any Occupational Health Risks Where You Work? No [email or web address] Information not available 08/20/2023 What Is Your Relationship Status? Information not available 06/30/2021 Are You Sexually Active? Yes Information not available 06/30/2021 What Types Of Sporting Activities Do You Participate In? Running, Cycling [email or web address] Information not available 08/20/2023 Sex: Unknown Functional Status Question Answer Note LastModified by Organizat ion Details LastModified Time Do you use any illicit or recreational drugs? No [email or web address] Information not available 08/20/2023 What is your level of alcohol consumption? Occasional [email or web address] Information not available 07/02/2021 Are you currently employed? 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 Never used electronic cigarettes [email or web address] Information not available 07/02/2021 What is your exercise level? Moderate [email or web address] Information not available 08/20/2023 Mental Status None recorded. Family History Relationship Description Onset Age of this Age Resolved Age Notes LastModified by Organization Details LastModified Time Father No current problems or disability [email or web address] Not available 06/18 11:06:32 Father Cerebrovascu lar accident [email or web address] Not available 11:06:32 Mother No current problems or disability [email or web address] Not available 06/18 11:06:32 Maternal Grandmother Heart disease [email or web address] Not available 07/02 11:06:32 Medical History Condition Response Anxiety Disorder Y History of Abnormal Pap Y Gynecological History Statement/Question Response Flow Heavy Date of last HPV 08/22/2023 Frequency of Cycle (Q days) 28 Date of LMP 2022 Date of Last Pap Smear 08/20/2023 Duration of Flow (days) 7 Most Recent Mammogram Current Control Method Hysterectom y Age at Menarche 12 Obstetrics History GPAL:G 2 P 2 0 0 2 Type Value Multiple Births 0 Full Term 2 Induced 0 Spontaneous 0 Premature 0 Living 2 Ectopics 0 Total 2 Past Encounters Encounter ID Performer Location Encounter Start Date Encounter Closed Date Diagnosis/Indication Diagnosis SNOMED-CT Code Diagnosis ICD10 Code Diagnosis IMO Codes Diagnosis Note [id number] Kiana Ruiz MD [address] [phone] 07/02/2021 10:32:57 07/03/2021 11:53:38 Gynecologic examination 71498542 Z01.419 Screening for malignant neoplasm of cervix 055209872 Z12.4 Surveillan ce of contraception 615048808 Z30.40 Secondary dysmenorrhea 82377905 N94.5 given patient's infertilit y history, dysmenorrh ea and pelvic pain, highly suspect endometrio sis at the root cause. Plan follow up u/s. We discussed empiric treatment vs surgery. Given patient's son's medical condition and clinical trial he is in at this time, Patient would like to avoid surgery, but plans for it in the future. [id number] Kiana Ruiz MD [address] [address] 07/18/2021 10:05:51 07/18/2021 12:10:09 Secondary dysmenorrhea 93296671 N94.5 Follow up u/s today. Discussed my continued concern for endometrio sis. Attempting to get Orilissa approved. Recommende d operative laparoscop y to evaulate for endometrio sis. Reviewed risks and benefits. Patient agrees to proceed. [id number] Kiana Ruiz MD [address] [address] 08/13/2021 09:59:24 08/13/2021 11:53:34 Postoperative visit [id number] Z09 Discussed postoperat john pathology with patient. Reviewed Surgical findings. Patient instructed that she may return to routine activities . All of her questions were answered. Endometrio sis of pelvis 19908846 N80.3 patient has Stage 4 endometrio sis. Doesn't want to take orilissa or Lupron. She is more interested in continuing contracept ion and is open to hysterecto my. Refer to [facility] pelvic pain specialist . change to SUNDAY since patient not interested in trying Orilissa again. [id number] Kiana Ruiz MD [facility] [address] [facility] [place] [address] 08/20/2023 08:57:52 08/20/2023 13:35:02 Gynecologic examination 17814549 Z01.419 Difficulty losing weight: The patient is struggling with weight loss despite regular exercise. The patient should consider increasing the intensity of exercise, incorporat ing more weight lifting, and aiming for 10,000 steps per day. Consultati on with a senior accounting associate for guidance on diet and weight management may also be beneficial . Screening for malignant neoplasm of breast 375308315 Z12.39 Depression screening 171 543726 Z13.31 Screening for malignant neoplasm of vagina 549822769 Z12.72 [facility] recommende d that she follow up with paps due to prior history of abnormal Endometrio sis (clinical) 188086899 N80.9 Hysterecto my and endometrio sis: The patient underwent a 12-hour surgery with removal of uterus, tubes, appendix, and scraping of dye. The ovaries were preserved and pinned up. The patient is currently on Slynd as control and is experienci ng no periods since the surgery. The patient should continue to follow up with [facility], and consider alternativ e control options if necessary. Partial lung collapse: The patient experience d a partial lung collapse in April, possibly due to endometrio sis in the pleural cavity. Brayan is seeing Cardiothor acic surgery for possible VATS procedure in the summertime . Health Concerns Section Related Observation LastModified by Organization Detai ls LastModified Time None Recorded Concern Status LastModified by Organization Details LastModified Time None Recorded Advance Directives Directive None Recorded Payers Insurance Date Sequence Insurance Name Policy Number Policy Fish Covered Member ID Fish Member ID Guarantor Name 08/17/2023 1 [place] [id number] Brayan Brandon [id number] Brayan Brandon Notes Date Note Type Note Provider Name and Address Organization Details Recorded Time 2 text/html Annual GYNReported by PatientGenitourinary symptomsFor menstrual cycle, patient reportssevere dysmenorrhea (for two days during menstruation, has had to leave work on a couple of occasions, has been getting worse progressively.)(period pain x 6 months). For urinary symptoms, patient reportsno hematuriaandno incontinence. For vulva, patient reportsno genital lesion. For vagina, patient reportsnormal vaginal discharge.Breast symptomsFor breast, patient reportsno breast pain,no breast lump, andno nipple discharge.Endocrine symptomsFor sexual complaints, patient reportspain during intercoursebut reportsno sexual complaints.Psychological symptomsFor psychological symptoms, patient reportsanxietybut reportsno depression.Preventative measuresFor preventive measures, patient reportsencourage self breast examinationandencourage regular exercise. Brayan here for annual well women visit Kiana Ruiz MD [address] [place] [address], [phone], [employer] 07/04/2021 15:54:54 2 text/html Pelvic PainReported by PatientHPIFor location, patient reportsbilateral. For onset/timing, patient reports>6 months. For duration, patient reportsintermittent. For quality, patient reportsachingandcramping. For severity, patient reportsmoderate. For alleviating factors, patient reportsoral contraceptives. For associated symptoms, patient reportsno chills,no constipation,no diarrhea,no vaginal discharge,no pain with urination,normal emptying of bladder,no feelings of urgency,no blood in the urine,normal libido,no fever,no nausea,no vomiting,no nocturia,no sexual abuse,no ectopic pregnancies,no endometriosis,no urinary frequency,no vaginal itching or irritation, andno dyspareunia.ROS as noted in the HPI Brayan here for f/u pelvic pain iKana Ruiz MD [address] [place] [address], [phone], [employer] 08/02/2021 07:58:00 2 text/html Post-OpReported by PatientHPIFor onset/timing, patient reportsdate of surgery: (07/31/2021). For quality, patient reportsprocedure: (operative lap / bx endometriosis, drainage bilateral ovarian cyst). For associated symptoms, patient reportsincision healing well,no fatigue,normal appetite,normal bowel function,no constipation,no nausea,no emesis,pain improving,no fever,no bleeding,no lower extremity edema/pain, andno dysuria/urinary symptoms.patient states she did not tolerate orilissa. Greatly affected mood. Brayan here for 2 week post op visit Kiana Ruiz MD [address] [place] [address], [phone], [employer] 08/13/2021 10:47:13 4 text/html Annual GYNReported by PatientGenitourinary symptomsFor urinary symptoms, patient reportsno hematuriaandno incontinence. For vulva, patient reportsno genital lesion. For vagina, patient reportsnormal vaginal discharge. For menstrual cycle, (hysterectomy).Breast symptomsFor breast, patient reportsno breast pain,no breast lump, andno nipple discharge.ContraceptionFor current contraception, patient reportsoral contraceptives(hysterectomy ).Endocrine symptomsFor menopausal symptoms, patient reportshot flashes(weight gain). For sexual complaints, patient reportsno sexual complaintsandno pain during intercourse. Brayan 42 y/o here for annual well women visit, she is post hysterectomy (09/2022), Last pap 07/02/2021, never had mammogram , she is on control slynd for endometriosis , c/o hot flashes and weight gain The patient is a 42-year-old female who underwent a hysterectomy procedure in March. The surgery lasted for 12 hours and involved the removal of the uterus, tubes, appendix, and scraping of the dye. The patient's ovaries were preserved and pinned up. The patient also had endometriosis on the diaphragm, bowels, and outside of the bladder. The bowel was partially shaved, and the patient was discharged the day after surgery. The patient started exercising in May but experienced a partial lung collapse in April, possibly due to endometriosis in the pleural cavity. The patient is currently on Slynd as control and is struggling with weight loss despite exercising regularly. Kiana Ruiz MD [address] [place] [address], [place], [phone], [facility] 08/20/2023 11:46:27 OBGyn Episode Ob Episode Information Episode Created Date Number of Fetuses Patient Bloodtype Patient rh Status Prepregnancy Weight lbs Domestic Partner Domestic Partner Phone Father Name Performance Improvement Consultant Status 08/02/19 22 1 CLOSED Fetus Data First Name Last Name Admitted to NICU Weight (g) Sex Living Outcome Pediatric Complications Fetus ID Race Codes Race Delivery Type 3175.14 4 M Full Term [id number] Primary Daniel Calculation Initial Daniel Date Initial Exam Date Initial Exam Provider Initial Ultrasound Date Last Menstrual Period Date Ultra Sound Weeks Gestation 0 Eighteen To Twenty Week Daniel Update Ultra Sound Date Fundal Height At Umbil Quickening Date Ultra Sound Latest Weeks Gestation Final Daniel Confirmed By Final Daniel Confirmed Date Final Daniel Date Ultra Sound Latest Days Gestation 0 0 Menstrual History Last Menstrual Date Menses Monthly On Bcp Conception Prior Menses Frequency Hcg Plus Date Menarche Onset Age Delivery Information Delivery Date Delivery Type Labor Anesthesia Weeks Gestation Incision Type Labor Labor Length Hrs Delivered By Post Complications Tubal Sterilization Discharge Date Comments 3 39 false Comments : Labored to complete, Pushed for 3 hours, Polyhydra mnios Discharge Information Feeding Method Contraceptive Method Maternal HG B and HCT Levels Ob Episode Information Episode Created Date Number of Fetuses Patient Bloodtype Patient rh Status Prepregnancy Weight lbs Domestic Partner Domestic Partner Phone Father Name Performance Improvement Consultant Status 08/02/19 22 1 CLOSED Fetus Data First Name Last Name Admitted to NICU Weight (g) Sex Living Outcome Pediatric Complications Fetus ID Race Codes Race Delivery Type 2721.55 2 M Full Term [id number] Repeat Daniel Calculation Initial Daniel Date Initial Exam Date Initial Exam Provider Initial Ultrasound Date Last Menstrual Period Date Ultra Sound Weeks Gestation 0 Eighteen To Twenty Week Daniel Update Ultra Sound Date Fundal Height At Umbil Quickening Date Ultra Sound Latest Weeks Gestation Final Daniel Confirmed By Final Daniel Confirmed Date Final Daniel Date Ultra Sound Latest Days Gestation 0 0 Menstrual History Last Menstrual Date Menses Monthly On Bcp Conception Prior Menses Frequency Hcg Plus Date Menarche Onset Age Delivery Information Delivery Date Delivery Type Labor Anesthesia Weeks Gestation Incision Type Labor Labor Length Hrs Delivered By Post Complications Tubal Sterilization Discharge Date Comments 6 40 false Discharge Information Feeding Method Contraceptive Method Maternal HG B and HCT Levels
--- OUTSIDE RECORDS SUMMARY | 2025-05-06 16:49 | XMS_ITS | Encounter Summary ---
Author Organization [facility] Address [facility] [place] [address] Care Team Providers Care Sealer Sander Name Role Phone Ruth Dhillon MD Unavailable [phone] Gino Slaughter MD Primary Care Provider [phone] Miguel Baires MD Unavailable [phone] Encounter Details Date Type Department Care Team (Late st Contact Info) Description 06/08/2024 MyChart Message Enc [facility] Multispecialty Care [place] [address] [place] [address] [address] [place] [address] Gino Slaughter MD [address] [facility] [address] [place] [address] Bloodwork Social History Tobacco Use Types Packs/Day Years [...] Sex Assigned at Female 07/01/2024 2:14 PM JACQUARD LOOM WEAVER Legal Sex Female 6:22 PM CDT Gender Identity Female 07/01/2024 2:24 PM JACQUARD LOOM WEAVER Sexual Orientation Straight 07/01/2024 2: 24 PM JACQUARD LOOM WEAVER 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 [address] [place] [address] 05/30/2025 3:40 PM JACQUARD LOOM WEAVER Office Visit [facility] Multispecialty Care - [place] [address] [address] [place], [place] [id number] Gino Slaughter MD [address] [place] [address] 06/02/2025 11:30 AM JACQUARD LOOM WEAVER [facility] [address] [place] [address] Britney Turner, ANIMAL ASSISTED THERAPIST [address] [facility], [facility] [address] [place] [address] documented as of this encounter Visit Diagnoses Not on filedocumented in this encounter Additional Health Concerns Assessment Noted Time PHQ-9 Depression Total Score: 1 06/01/19 25 4:58 PM JACQUARD LOOM WEAVER documented as of this encounter Care Teams Sealer Sander Relationship Specialty [place] [address] [place] [address] [address] [place] [address] PCP - General INTERNAL MEDICINE 12/26/20 Ruth Dhillon MD [facility]. [address] [place] [address] Fleming Sponge Press Operator CARDIOVASCULAR DISEASE 10/17/15 Miguel Baires MD Three [facility]. [facility] [address] [place] [address] Toni Sponge Press Operator CLINICAL CARDIAC ELECTROPHYSIOLOGY 03/20/25 documented as of this encounter
--- OUTSIDE RECORDS SUMMARY | 2025-05-06 16:49 | XMS_ITS | Encounter Summary ---
Author Organization [facility] Address [facility] [place] [address] Care Team Providers Care Radioactive Waste Disposal Dispatcher Name Role Phone Ruth Dhillon MD Unavailable [phone] Gino Slaughter MD Primary Care Provider [phone] Miguel Baires MD Unavailable [phone] Encounter Details Date Type Department Care Team (Late st Contact Info) Description 04/17/2025 [facility] Message Enc [place] [facility] [facility], [facility], [place] [address] [place] [address] Miguel Baires MD [facility]. 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 Maybe she can try propranolol instead of verapamil. ANOLOGY PROFESSOR * MARILYN Brasher - 04/21/2025 9:[address] Baires is wanting to get her in for repeat EP study. ANOLOGY PROFESSOR documented in this encounter Plan of Treatment Upcoming Encounters Date Type Department Care Team (Late st Contact Info) Description 05/15/2025 10:30 AM VOLCANOLOGY PROFESSOR Office Visit [place] [facility] THREE [facility], [facility], [place] [address] [place], [place] [address] Jennifer Eng APRN Three [facility] [address] [place], [place] [address] 05/30/2025 3:40 PM VOLCANOLOGY PROFESSOR Office Visit [facility] Multispecialty Care - [place] [address] [address] [place] [address] [place] [address] [place] [address] [address] [place] [address] 06/02/2025 11:30 AM VOLCANOLOGY PROFESSOR Office Visit [place] [facility] THREE [facility], [facility], [place] [address] [place], [place] [address] Britney Turner APRN 3 [facility], [facility], [place] [address] [place], [place] [address] documented as of this encounter Visit Diagnoses Not on filedocumented in this encounter Additional Health Concerns Assessment Noted Time PHQ-9 Depression Total Score: 1 06/01/19 25 4:58 PM VOLCANOLOGY PROFESSOR documented as of this encounter Care Teams Radioactive Waste Disposal Dispatcher Relationship Specialty Start Date End Date Gino Slaughter MD [address] [facility] [address] [place] [address] PCP - General INTERNAL MEDICINE 12/26/20 Ruth Dhillon MD Three [facility]. [place] [address] [place], [place] [address] Toni Software Project Lead CARDIOVASCULAR DISEASE 10/17/15 Miguel Baires MD [facility]. [facility] [address] [place], [place] [address] Toni Software Project Lead CLINICAL CARDIAC ELECTROPHYSIOLOGY 03/20/25 documented as of this encounter
--- OUTSIDE RECORDS SUMMARY | 2025-05-06 16:49 | XMS_ITS | Encounter Summary ---
Author Organization [facility] Address [facility] [place] [address] Care Team Providers Care Dehydrogenation Converter Operator Name Role Phone Ruth Dhillon MD Unavailable [phone] Gino Slaughter MD Primary Care Provider [phone] Miguel Baires MD Unavailable [phone] Encounter Details Date Type Department Care Team (Late st Contact Info) Description 11/02/2023 [employer] Message Enc [place] [facility] THREE [facility], [facility] [address] [place] [address] Ruth Dhillon MD Three [facility]. 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 [address] [place] [address] 05/30/2025 3:40 PM COMMUNITY DEVELOPMENT OFFICER Office Visit [facility] Multispecialty Care - [place] [address] [address] [place], [place] [phone] Gino Slaughter MD [address] [facility] [address] [place] [address] 06/02/2025 11:30 AM COMMUNITY DEVELOPMENT OFFICER Office Visit [place] [facility] [facility] [place] [address] [place] [address] Britney Turner, SHARPLES MACHINE OPERATOR [address] [facility], [facility] [address] [place] [address] documented as of this encounter Visit Diagnoses Not on filedocumented in this encounter Additional Health Concerns Assessment Noted Time PHQ-9 Depression Total Score: 0 06/01/19 24 1:52 PM COMMUNITY DEVELOPMENT OFFICER documented as of this encounter Care Teams Dehydrogenation Converter Operator Relationship Specialty Start Date End Date Gino Slaughter MD [address] [facility] [address] [place], [place] [id number] PCP - General INTERNAL MEDICINE 12/26/20 Ruth Dhillon MD [facility]. [address] [place] [address] [place] Party Plan Sales Unit Advisor CARDIOVASCULAR DISEASE 10/17/15 Miguel Baires MD Three [facility]. [facility] [address] [place] [address] [employer] Party Plan Sales Unit Advisor CLINICAL CARDIAC ELECTROPHYSIOLOGY 03/20/25 documented as of this encounter
--- OUTSIDE RECORDS SUMMARY | 2025-05-06 16:49 | XMS_ITS | Encounter Summary ---
Author Organization [facility] Address [facility] [place] [address] Care Team Providers Care Washcloth Folder Name Role Phone Ruth Dhillon MD Unavailable [phone] Gino Slaughter MD Primary Care Provider [phone] Miguel Baires MD Unavailable [phone] Encounter Details Date Type Department Care Team (Late st Contact Info) Description 03/22/2025 CryoLife Message Enc [place] [facility] THREE [facility], [facility] [address] [place] [address] Miguel Baires MD [facility]. 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 [address] [place] [address] 05/30/2025 3:40 PM LICENSED DISPENSING OPTICIAN Office Visit [facility] Multispecialty Care - [place] [address] [address] [place], [place] [phone] Gino Slaughter MD [address] [facility] [address] [place] [address] 06/02/2025 11:30 AM LICENSED DISPENSING OPTICIAN Office Visit [facility] [facility] [place] [address] [place] [address] Britney Turner, RODENT CONTROL WORKER 3 [facility], [facility] [address] [place] [address] documented as of this encounter Visit Diagnoses Not on filedocumented in this encounter Additional Health Concerns Assessment Noted Time PHQ-9 Depression Total Score: 1 06/01/19 25 4:58 PM LICENSED DISPENSING OPTICIAN documented as of this encounter Care Teams Washcloth Folder Relationship Specialty Start Date End Date Gino Slaughter MD [address] [facility] [address] [place] [address] PCP - General INTERNAL MEDICINE 12/26/20 Ruth Dhillon MD Three [facility]. [address] [place] [address] Toni Aoc Director Intelligence Officer CARDIOVASCULAR DISEASE 10/17/15 Miguel Baires MD Three [facility]. [facility] [address] [place] [address] Toni Aoc Director Intelligence Officer CLINICAL CARDIAC ELECTROPHYSIOLOGY 03/20/25 documented as of this encounter
--- OUTSIDE RECORDS SUMMARY | 2025-05-06 16:49 | XMS_ITS | Encounter Summary ---
Author Organization [facility] Address [facility] [place] [address] Care Team Providers Care Expediter Name Role Phone Ruth Dhillon MD Unavailable [phone] Gino Slaughter MD Primary Care Provider [phone] Miguel Baires MD Unavailable [phone] Encounter Details Date Type Department Care Team (Late st Contact Info) Description 05/05/2025 Eventbrite Message Enc [place] [facility] THREE [facility], [facility] [address] [place] [address] Miguel Baires MD [facility]. 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. [address] [place] [address] 05/30/2025 3:40 PM RIBBON WINDER Office Visit [facility] Medical Group Multispecialty Care - [place] [address] [address] [place], [place] [address] Gino Slaughter MD 1188 [facility] [address] [place] [address] 06/02/2025 11:30 AM RIBBON WINDER Office Visit [place] [facility] [facility] [place] [address] [place] [address] Britney Turner, MARKET ANALYSIS DIRECTOR 3 [facility], [facility] [address] [place] [address] documented as of this encounter Visit Diagnoses Not on filedocumented in this encounter Additional Health Concerns Assessment Noted Time PHQ-9 Depression Total Score: 1 06/01/19 25 4:58 PM RIBBON WINDER documented as of this encounter Care Teams Expediter Relationship Specialty Start Date End Date Gino Slaughter MD 1188 [facility] [address] [place] [address] PCP - General INTERNAL MEDICINE 12/26/20 Ruth Dhillon MD Three [facility]. [address] [place] [address] Toni Art Gallery Internship CARDIOVASCULAR DISEASE 10/17/15 Miguel Baires MD Three [facility]. [facility] [address] [place] [address] Toni Art Gallery Internship CLINICAL CARDIAC ELECTROPHYSIOLOGY 03/20/25 documented as of this encounter
--- OUTSIDE RECORDS SUMMARY | 2025-05-06 16:49 | XMS_ITS | Encounter Summary ---
Author Organization [facility] Address [facility] [place] [address] Care Team Providers Care Sales Marketing Manager Name Role Phone Ruth Dhillon MD Unavailable [phone] Ja Chase MD Primary Care Provider [phone] Gino Slaughter MD Primary Care Provider [phone] [facility] MD Unavailable [phone] Encounter Details Date Type Department Care Team (Late st Contact Info) Description 07/03/2017 Abstract [facility] at [address] [address] Yaneli Howe MA Social History Tobacco Use Types Packs/Day Years Used Date Smoking Tobacco: Never Smokeless Tobacco: Never Alcohol Use Standard Drinks/Week Comments Yes 0 (1 standard drink = 0.6 oz pur e alcohol) Socially Comments Unknown Sex and Gender Information Value Date Recorded Sex Assigned at Female 07/01/2024 2:14 PM SUPERVISOR CONCRETE PIPE PLANT Legal Sex Female 6:22 PM CDT Gender Identity Female 07/01/2024 2:24 PM SUPERVISOR CONCRETE PIPE PLANT Sexual Orientation Straight 07/01/2024 2: 24 PM SUPERVISOR CONCRETE PIPE PLANT 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 Not on file Not on file documented as of this encounter Plan of Treatment Upcoming Encounters Date Type Department Care Team (Late st Contact Info) Description 05/15/2025 10:30 AM SUPERVISOR CONCRETE PIPE PLANT Office Visit [facility], [address] [place] [address] Jennifer Eng, MANAGER UNION Three [facility] [address] [place] [address] 05/30/2025 3:40 PM SUPERVISOR CONCRETE PIPE PLANT Office Visit [facility] Medical Group Multispecialty Care - [place] 1188 [facility] 157 [address] [place] [address] Gino Slaughter MD 1188 [facility] [address] [place] [address] 06/02/2025 11:30 AM SUPERVISOR CONCRETE PIPE PLANT Office Visit [facility] THREE [facility], [address] [place] [address] Britney Turner, MANAGER UNION 3 [facility], [address] [place] [address] documented as of this encounter Procedures Procedure Name Priority Date/Time Associated Diagnosis Comments CBC (OUTSIDE LAB) Routine 11/29/2015 documented in this encounter Results * CBC (OUTSIDE LAB) (11/29/2015) WBC 8.6 HGB 13.4 HCT 40.1 PLT 206 11/29/2015 us Doc [facility] Abstract LAB-OUTSIDE/ABSTRACTED Final Result documented in this encounter Visit Diagnoses Not on filedocumented in this encounter Additional Health Concerns Infection Onset Date Last Indicated Resolved Time COVID-19 Rule Out 05/24/2021 05/24/2021 05/24/2021 3:14 PM SUPERVISOR CONCRETE PIPE PLANT documented as of this encounter Care Teams Sales Marketing Manager Relationship Specialty Start Date End Date Ja Chase MD [address] [place] [address] PCP - General INTERNAL MEDICINE 03/18/17 12/25/20 Gino Slaughter MD [address] [id number] PCP - General INTERNAL MEDICINE 12/26/20 Ruth Dhillon MD Three [facility]. [address] [address] Toni Exhibition Designer CARDIOVASCULAR DISEASE 10/17/15 Miguel Baires MD Three [facility]. [address] [address] Toni Exhibition Designer CLINICAL CARDIAC ELECTROPHYSIOLOGY 03/20/25 documented as of this encounter
--- OUTSIDE RECORDS SUMMARY | 2025-05-06 16:49 | XMS_ITS | Encounter Summary ---
Author Organization [facility] Address [facility] [place] [address] Care Team Providers Care Engine Repairer Name Role Phone Ruth Dhillon MD Unavailable [phone] Gino Slaughter MD Primary Care Provider [phone] Miguel Baires MD Unavailable [phone] Encounter Details Date Type Department Care Team (Late st Contact Info) Description 03/27/2025 METEOR Network Message Enc [place] [facility] [facility], [facility] [address] [place] [address] Miguel Baires MD [facility]. 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 Instructed her to stop taking her Metoprolol 5 days prior to the procedure. I also let her know Dr Baires cancelled her tilt table test on 04/05/25 GRASS TECHNICIAN documented in this encounter Plan of Treatment Upcoming Encounters Date Type Department Care Team (Late st Contact Info) Description 05/15/2025 10:30 AM TURFGRASS TECHNICIAN Office Visit [place] [facility] THREE [facility], [facility] [address] [place] [address] Jennifer Eng APRN Three [facility] [address] [place] [address] 05/30/2025 3:40 PM TURFGRASS TECHNICIAN Office Visit [facility] Medical Group Multispecialty Care - [place] [address] [address] [place], [place] [phone] Gino Slaughter MD [address] [place] [phone] 06/02/2025 11:30 AM TURFGRASS TECHNICIAN [facility], [facility] [address] [place] [address] Britney Turner APRN 3 [facility], [facility] [address] [place] [address] documented as of this encounter Visit Diagnoses Not on filedocumented in this encounter Additional Health Concerns Assessment Noted Time PHQ-9 Depression Total Score: 1 06/01/19 25 4:58 PM TURFGRASS TECHNICIAN documented as of this encounter Care Teams Engine Repairer Relationship Specialty Start Date End Date Gino Slaughter MD [address] [place] [address] PCP - General INTERNAL MEDICINE 12/26/20 Ruth Dhillon MD Three [facility]. [facility] [address] [place] [address] Toni Plug Drill Operator CARDIOVASCULAR DISEASE 10/17/15 Miguel Baires MD [facility]. [facility] [address] [place] [address] Toni Plug Drill Operator CLINICAL CARDIAC ELECTROPHYSIOLOGY 03/20/25 documented as of this encounter
--- OUTSIDE RECORDS SUMMARY | 2025-05-06 16:49 | XMS_ITS | Encounter Summary ---
Author Organization [facility] Address [facility] [place] [address] Care Team Providers Care Slat Twister Name Role Phone Ruth Dhillon MD Unavailable [phone] Gino Slaughter MD Primary Care Provider [phone] Miguel Baires MD Unavailable [phone] Encounter Details Date Type Department Care Team (Late st Contact Info) Description 04/30/2025 Atamasoft Message Enc [place] [facility], [facility] [address] [place] [address] Miguel Baires MD [facility]. 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 Wish to be (Past 1 Month) No 05/03/2025 10:05 AM Ene Borden RN Activ e 2. Non-Specific Active Suicidal Thoughts (Past 1 Month) No 05/03/2025 10:05 AM Ene Borden RN Activ e 6. Suicidal Behavior (Lifetime) No 05/03/2025 10:05 AM Ene Borden RN Activ e documented as of this encounter Plan of Treatment Upcoming Encounters Date Type Department Care Team (Late st Contact Info) Description 05/15/2025 10:30 AM DATA PROCESSING CONTROL CLERK Office Visit [place] [facility] THREE [facility], [facility] [address] [place] [address] Jennifer Eng APRN Three [facility] [address] [place] [address] 05/30/2025 3:40 PM DATA PROCESSING CONTROL CLERK Office Visit [facility] Medical Group Multispecialty Care - [place] [address] [address] [place] [address] [place] [address] [place] [address] [address] [place] [address] 06/02/2025 11:30 AM DATA PROCESSING CONTROL CLERK Office Visit [place] [facility] THREE [facility], [facility] [address] [place] [address] Britney Turner APRN 3 [facility], [facility] [address] [place] [address] documented as of this encounter Visit Diagnoses Not on filedocumented in this encounter Additional Health Concerns Assessment Noted Time PHQ-9 Depression Total Score: 1 06/01/19 25 4:58 PM DATA PROCESSING CONTROL CLERK documented as of this encounter Care Teams Slat Twister Relationship Specialty Start Date End Date Gino Slaughter MD 1188 [facility] [address] [place] [address] PCP - General INTERNAL MEDICINE 12/26/20 Ruth Dhillon MD Three [facility]. [address] [place], [place] [address] Toni French Folding Machine Operator CARDIOVASCULAR DISEASE 10/17/15 Miguel Baires MD Three [facility]. [facility] [address] [place], [place] [address] Toni French Folding Machine Operator CLINICAL CARDIAC ELECTROPHYSIOLOGY 03/20/25 documented as of this encounter
--- OUTSIDE RECORDS SUMMARY | 2025-05-06 16:49 | XMS_ITS | Encounter Summary ---
Author Organization [facility] Address [facility]6 [place] [address] Care Team Providers Care Hide Worker Name Role Phone Ruth Dhillon MD Unavailable [phone] Gino Slaughter MD Primary Care Provider [phone] Miguel Baires MD Unavailable [phone] Encounter Details Date Type Department Care Team (Late st Contact Info) Description 01/10/2021 MyChart Message Enc [facility] Medical Group Multispecialty Care - [place] [address] [address] [place] [address] Gino Slaughter MD 1188 [facility] [address] [place] [address] RE: Question Social History Tobacco Use Types Packs/Day Years Used Date Smoking Tobacco: Never Smokeless Tobacco: Never Alcohol Use Standard Drinks/Week Comments Yes 0 (1 standard drink = 0.6 oz pur e alcohol) Socially PHQ-2 Answer Date Recorded PHQ-2 Score - If the patient scores above 3, please move on to questions 3-9 0 12/26/2020 Comments No Sex and Gender Information Value Date Recorded Sex Assigned at Female 07/01/2024 2:14 PM CHICKEN VACCINATOR Legal Sex Female 6:22 PM CDT Gender Identity Female 07/01/2024 2:24 PM CHICKEN VACCINATOR Sexual Orientation Straight 07/01/2024 2: 24 PM CHICKEN VACCINATOR 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 No / Unsure 12/26/2020 8:22 AM CDT documented as of this encounter Plan of Treatment Upcoming Encounters Date Type Department Care Team (Late st Contact Info) Description 05/15/2025 10:30 AM CHICKEN VACCINATOR Office Visit [place] [facility] THREE [facility], [facility] [address] [place] [address] Jennifer Eng, BACK TENDER CYLINDER Three [facility] [address] [place], [place] [address] 05/30/2025 3:40 PM CHICKEN VACCINATOR Office Visit [facility] Medical Group Multispecialty Care - [place] [address] [address] [place] [address] Gino Slaughter MD [address] [place] [address] 06/02/2025 11:30 AM CHICKEN VACCINATOR [facility], [facility] [address] [place] [address] Britney Turner, BACK TENDER CYLINDER 3 [facility], [facility] [address] [place] [address] documented as of this encounter Visit Diagnoses Not on filedocumented in this encounter Additional Health Concerns Infection Onset Date Last Indicated Resolved Time COVID-19 Rule Out 05/24/2021 05/24/2021 05/24/2021 3:14 PM CHICKEN VACCINATOR Assessment Noted Time PHQ-9 Depression Total Score: 2 12/27/19 21 9:27 AM CDT documented as of this encounter Care Teams Hide Worker Relationship Specialty [place] [address] [place] [address] PCP - General INTERNAL MEDICINE 12/26/20 Ruth Dhillon MD Three [facility]. [address] [address] Toni Refrigerator Repairman CARDIOVASCULAR DISEASE 10/17/15 Miguel Baires MD Three [facility]. [address] [address] Toni Refrigerator Repairman CLINICAL CARDIAC ELECTROPHYSIOLOGY 03/20/25 documented as of this encounter
--- OUTSIDE RECORDS SUMMARY | 2025-05-06 16:49 | XMS_ITS | Encounter Summary ---
Author Organization [facility] Address [facility] [place] [address] Care Team Providers Care Talent Development Manager Name Role Phone Ruth Dhillon MD Unavailable [phone] Gino Slaughter MD Primary Care Provider [phone] Miguel Baires MD Unavailable [phone] Encounter Details Date Type Department Care Team (Late st Contact Info) Description 03/09/2025 Advizzer Message Enc [place] [facility] THREE [facility], [facility] [address] [place] [address] Ruth Dhillon MD [facility]. 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 [address] [place] [address] 05/30/2025 3:40 PM UNISHEAR OPERATOR Office Visit [facility] Medical Group Multispecialty Care - [place] [address] [place] [address] [address] [place] [address] Gino Slaughter MD 1188 [facility] 157 [place] [address] 06/02/2025 11:30 AM UNISHEAR OPERATOR Office Visit [place] [facility] THREE [facility] [address] [place] [address] Britney Turner, HONING MACHINE OPERATOR 3 [facility], [facility] [address] [place] [address] documented as of this encounter Visit Diagnoses Not on filedocumented in this encounter Additional Health Concerns Assessment Noted Time PHQ-9 Depression Total Score: 1 06/01/19 25 4:58 PM UNISHEAR OPERATOR documented as of this encounter Care Teams Talent Development Manager Relationship Specialty Start Date End Date Gino Slaughter MD 1188 [facility] 157 [place], [place] [phone] PCP - General INTERNAL MEDICINE 12/26/20 Ruth Dhillon MD Three [facility]. [address] [place] [address] Toni Grief Counselor CARDIOVASCULAR DISEASE 6/1/16 Miguel Baires MD Three [facility]. [facility] [address] [place] [address] Toni Grief Counselor CLINICAL CARDIAC ELECTROPHYSIOLOGY 03/20/25 documented as of this encounter
--- OUTSIDE RECORDS SUMMARY | 2025-05-06 16:49 | XMS_ITS | Encounter Summary ---
Author Organization [facility] - [facility] Address [facility] [place] [address] Care Team Providers Care Potato Grader Name Role Phone Ruth Dhillon MD Unavailable [phone] Gino Slaughter MD Primary Care Provider [phone] Miguel Baires MD Unavailable [phone] Encounter Details Date Type Department Care Team (Late st Contact Info) Description 02/02/2022 MyChart Message Enc [facility] Medical Group Multispecialty Care - [place] [address] [address] [place] [address] [place] [address] [place] [address] [address] [place] [address] Gluten question Social History Tobacco Use Types Packs/Day Years Used Date Smoking Tobacco: Never Smokeless Tobacco: Never Comments:Counseled by Dr. 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 [address] [place] [address] 05/30/2025 3:40 PM MASONRY INSPECTOR Office Visit [facility] Medical Group Multispecialty Care - [address] [address] [address] [address] [place] [address] Gino Slaughter MD 1188 [facility] 157 [place] [address] 06/02/2025 11:30 AM MASONRY INSPECTOR Office Visit [facility] THREE [facility], [address] [place] [address] Britney Turner, PRODUCT DEVELOPMENT ACTUARY 3 [facility], [facility] [address] [place] [address] documented as of this encounter Visit Diagnoses Not on filedocumented in this encounter Additional Health Concerns Assessment Noted Time PHQ-9 Depression Total Score: 0 11/14/19 22 8:34 AM CDT documented as of this encounter Care Teams Potato Grader Relationship Specialty Start Date End Date Gino Slaughter MD 1188 [facility] [address] [place] [address] PCP - General INTERNAL MEDICINE 12/26/20 Ruth Dhillon MD Three [facility]. [address] [place] [address] Toni Shredding Machine Operator CARDIOVASCULAR DISEASE 10/17/15 Miguel Baires MD Three [facility]. [facility] [address] [place] [address] Toni Shredding Machine Operator CLINICAL CARDIAC ELECTROPHYSIOLOGY 03/20/25 documented as of this encounter
--- OUTSIDE RECORDS SUMMARY | 2025-05-06 16:49 | XMS_ITS | Encounter Summary ---
Author Organization [facility] Address [facility]ly [facility] [place] [address] Care Team Providers Care Hop Separator Name Role Phone Ruth Dhillon MD Unavailable [phone] Gino Slaughter MD Primary Care Provider [phone] [facility] Center[facility] bartlett MD Unavailable [phone] Encounter Details Date Type Department Care Team (Late Contact Info) Description 03/29/2025 Abstract [facility] [address] [id number] Birdie Amato MA Social History Tobacco Use Types Packs/Day [...] Sex Assigned at Female 07/01/2024 2:14 PM RESERVOIR ENGINEERING CONSULTANT Legal Sex Female 6:22 PM CDT Gender Identity Female 07/01/2024 2:24 PM RESERVOIR ENGINEERING CONSULTANT Sexual Orientation Straight 07/01/2024 2: 24 PM RESERVOIR ENGINEERING CONSULTANT 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 Not on file Not on file documented as of this encounter Plan of Treatment Upcoming Encounters Date Type Department Care Team (Late Contact Info) Description 05/15/2025 10:30 AM RESERVOIR ENGINEERING CONSULTANT Office Visit [facility] THREE [facility], [address] [place] [address] Jennifer Eng, INFORMATION SERVICES ASSISTANT Three [facility] [address] [place] [address] 05/30/2025 3:40 PM RESERVOIR ENGINEERING CONSULTANT Office Visit [facility] Multispecialty Care - [place] [address] [facility] 157 [address] [place] [address] Gino Slaughter MD 1188 [facility] [address] [place] [address] 06/02/2025 11:30 AM RESERVOIR ENGINEERING CONSULTANT Office Visit [facility] THREE [facility], [facility] [address] [place] [address] Britney uTrner, INFORMATION SERVICES ASSISTANT 3 [facility], [facility] [address] [place] [address] documented as of this encounter Procedures Procedure Name Priority Date/Time Associated Diagnosis Comments PROTIME (OUTSIDE LAB) Routine 03/28/2025 BASIC METABOLIC PANEL Routine 03/28/2025 CBC W/DIFF AUTOMATED Routine 03/28/2025 documented in this encounter Results * BASIC METABOLIC PANEL (03/28/2025) SODIUM S/P/B 140 135 - 146 POTASSIUM S/P/B 3.9 3.5 - 5.3 CO2 26 20 - 32 CHLORIDE S/P/B 106 98 - 110 GLUCOSE 90 65 - 139 mg/dL CALCIUM S/P/B 8.9 8.6 - 10.2 BUN 24 7 - 25 CREATININE S/P/B 0.91 0.50 - 0.99 GFR ESTIMATE 81 03/28/2025 us Default History Genericprovider LABORATORY Final Result * PROTIME (OUTSIDE LAB) (03/28/2025) PROTIME 9.9 9.0 - 11.5 INR 0.9 03/28/2025 us Default History Genericprovider LAB-OUTSIDE/ABST RACTED Final Result * CBC W/DIFF AUTOMATED (03/28/2025) WBC 6.9 3.8 - 10.8 RBC 4.64 3.80 - 5.10 HGB 14.0 11.7 - 15.5 HCT 42.3 35.0 - 45.0 MCV 91.2 80.0 - 100.0 MCH 30.2 27.0 - 33.0 MCHC 33.1 32.0 - 36.0 RDW 12.1 11.0 - 15.0 PLT 260 140 - 400 MPV 11.5 7.5 - 12.5 NEUTROPHILS % 62.3 LYMPHOCYTES % 28.1 MONOCYTES % 6.7 EOSINOPHILS % 2.3 BASOPHILS % 0.6 ABS. NEUTROPHILS 4,299 1,500 - 7,800 ABS. LYMPHOCYTES 1,939 850 - 3,900 ABS. MONOCYTES 462 200 - 950 ABS. BASOPHILS 41 0 - 200 03/28/2025 us Default History Genericprovider LABORATORY Final Result documented in this encounter Visit Diagnoses Not on filedocumented in this encounter Additional Health Concerns Assessment Noted Time PHQ-9 Depression Total Score: 1 06/01/19 25 4:58 PM RESERVOIR ENGINEERING CONSULTANT documented as of this encounter Care Teams Hop Separator Relationship Specialty Start Date End Date Gino Slaughter MD [address] [address] PCP - General INTERNAL MEDICINE 12/26/20 Ruth Dhillon MD [address] [address] Toni Tombstone Polisher CARDIOVASCULAR DISEASE 10/17/15 Miguel Baires MD [facility] [address] [place] [address] Toni Tombstone Polisher CLINICAL CARDIAC ELECTROPHYSIOLOGY 03/20/25 documented as of this encounter
--- OUTSIDE RECORDS SUMMARY | 2025-05-06 16:49 | XMS_ITS | Encounter Summary ---
Author Organization [facility] - [facility] Address Critical access hospital[address] [place] [address] Care Team Providers Care Kettle Operator Name Role Phone Ruth Dhillon MD Unavailable [phone] Gino Slaughter MD Primary Care Provider [phone] Miguel Baires MD Unavailable [phone] Encounter Details Date Type Department Care Team (Latest Contact Info) Description 09/04/2024 Ziiost Message Enc [facility] Medical Group Multispecialty Care - [place] [address] [address] [address] [place] [address] Gino Slaughter MD 1188 [facility] 157 [place] [address] Wegovy - Side Effects Social History Tobacco Use Types Packs/Day Years [...] Sex Assigned at Female 07/01/2024 2:14 PM CUFF KNITTER Legal Sex Female 6:22 PM CDT Gender Identity Female 07/01/2024 2:24 PM CUFF KNITTER Sexual Orientation Straight 07/01/2024 2: 24 PM CUFF KNITTER 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 [address] [place] [address] 05/30/2025 3:40 PM CUFF KNITTER Office Visit [facility] Medical Group Multispecialty Care - [place] [address] [address] [address] [place], [place] [id number] Gino Slaughter MD [address] [facility] 157 [place] [address] 06/02/2025 11:30 AM CUFF KNITTER Office Visit [facility] THREE [facility], [facility] [address] [place] [address] Britney Turner, SUPERVISOR MARBLE 3 [facility], [facility] [address] [place] [address] documented as of this encounter Visit Diagnoses Not on filedocumented in this encounter Additional Health Concerns Assessment Noted Time PHQ-9 Depression Total Score: 1 06/01/19 25 4:58 PM CUFF KNITTER documented as of this encounter Care Teams Kettle Operator Relationship Specialty Start Date End Date Gino Slaughter MD [address]8 [facility] [address] [place] [address] PCP - General INTERNAL MEDICINE 12/26/20 Ruth Dhillon MD [facility]. [address] [place] [address] [place] Terrazzo Laborer CARDIOVASCULAR DISEASE 10/17/15 Miguel Baires MD Three [facility]. [facility] [address] [place] [address] [place] Terrazzo Laborer CLINICAL CARDIAC ELECTROPHYSIOLOGY 03/20/25 documented as of this encounter
--- OUTSIDE RECORDS SUMMARY | 2025-05-06 16:49 | XMS_ITS | Encounter Summary ---
Author Organization [facility] Address [facility] [place] [address] Care Team Providers Care Grades 9 Thru 12 Visiting Teacher Name Role Phone Ruth Dhillon MD Unavailable [phone] Gino Slaughter MD Primary Care Provider [phone] Miguel Baires MD Unavailable [phone] Encounter Details Date Type Department Care Team (Late st Contact Info) Description 12/13/2024 [employer] Systems Technology Message Enc [facility] THREE [facility], [facility] [address] [place] [address] Ruth Dhillon MD [facility]. 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 [address] [place] [address] 05/30/2025 3:40 PM FRONT END ASSISTANT Office Visit [facility] Medical Group Multispecialty Care - [place] [address] [address] [place] [address] Gino Slaughter MD 1188 [facility] 157 [place] [address] 06/02/2025 11:30 AM FRONT END ASSISTANT Office Visit [facility] THREE [facility], [address] [place] [address] Britney Turner, DINKEY ENGINEER 3 [facility], [facility] [address] [place] [address] documented as of this encounter Visit Diagnoses Not on filedocumented in this encounter Additional Health Concerns Assessment Noted Time PHQ-9 Depression Total Score: 1 06/01/19 25 4:58 PM FRONT END ASSISTANT documented as of this encounter Care Teams Grades 9 Thru 12 Visiting Teacher Relationship Specialty Start Date End Date Gino Slaughter MD 1188 [facility] [address] [place] [address] PCP - General INTERNAL MEDICINE 12/26/20 Ruth Dhillon MD [facility]. [address] [place] [address] [place] Curatorial Specialist CARDIOVASCULAR DISEASE 10/17/15 Miguel Baires MD Three [facility]. [facility] [address] [place] [address] [place] Curatorial Specialist CLINICAL CARDIAC ELECTROPHYSIOLOGY 03/20/25 documented as of this encounter
--- OUTSIDE RECORDS SUMMARY | 2025-05-06 16:49 | XMS_ITS | Encounter Summary ---
Author Organization [facility] Address [facility]6 [place] [address] Care Team Providers Care Assurance Senior Manager Insurance Name Role Phone Ruth Dhillon MD Unavailable [phone] Gino Slaughter MD Primary Care Provider [phone] Miguel Baires MD Unavailable [phone] Encounter Details Date Type Department Care Team (Late Contact Info) Description 03/30/2025 Results Follow-Up [facility] [address] Mariia Ellis RN CBC W/DIFF AUTOMATED, PROTIME (OUTSIDE LAB), BASIC METABOLIC PANEL Social History Tobacco Use Types Packs/Day [...] Sex Assigned at Female 07/01/2024 2:14 PM REGULATORY COMPLIANCE DIRECTOR Legal Sex Female 6:22 PM CDT Gender Identity Female 07/01/2024 2:24 PM REGULATORY COMPLIANCE DIRECTOR Sexual Orientation Straight 07/01/2024 2: 24 PM REGULATORY COMPLIANCE DIRECTOR 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 Not 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 Not on file documented as of this encounter Plan of Treatment Upcoming Encounters Date Type Department Care Team (Late Contact Info) Description 05/15/2025 10:30 AM REGULATORY COMPLIANCE DIRECTOR Office Visit [facility] THREE [facility], [facility] [address] [place] [address] Jennifer Eng, BLOOD BANK SUPERVISOR Three [facility] [address] [place] [address] 05/30/2025 3:40 PM REGULATORY COMPLIANCE DIRECTOR Office Visit [facility] Medical Group Multispecialty Care - [place] [address] [address] [place] [address] Gino Slaughter MD [address] [place] [address] [address] [place] [address] 06/02/2025 11:30 AM REGULATORY COMPLIANCE DIRECTOR Office Visit [facility] THREE [facility], [facility] [address] [place] [address] Britney Turner, BLOOD BANK SUPERVISOR 3 [facility], [facility] [address] [place] [address] documented as of this encounter Visit Diagnoses Not on filedocumented in this encounter Additional Health Concerns Assessment Noted Time PHQ-9 Depression Total Score: 1 06/01/19 25 4:58 PM REGULATORY COMPLIANCE DIRECTOR documented as of this encounter Care Teams Assurance Senior Manager Insurance Relationship Specialty Start Date End Date Gino Slaughter MD [address] [place] [address] 157 [place] [address] PCP - General INTERNAL MEDICINE 12/26/20 Ruth Dhillon MD [facility]. [address] [place] [address] [place] Remote Encoding Operations Supervisor CARDIOVASCULAR DISEASE 10/17/15 Miguel Baires MD [facility]. [facility] [address] [place] [address] Toni Remote Encoding Operations Supervisor CLINICAL CARDIAC ELECTROPHYSIOLOGY 03/20/25 documented as of this encounter
--- OUTSIDE RECORDS SUMMARY | 2025-05-06 16:49 | XMS_ITS | Encounter Summary ---
Author Organization [facility] Address [facility] [place] [address] Care Team Providers Care Script Artist Name Role Phone Ruth Dhillon MD Unavailable [phone] Gino Slaughter MD Primary Care Provider [phone] Miguel Baires MD Unavailable [phone] Encounter Details Date Type Department Care Team (Late st Contact Info) Description 05/05/2025 MyChart Message Enc [facility] Medical Group Multispecialty Care - [place] [address] [place] [address] [address] [place] [address] Gino Slaughter MD 1188 [facility] 157 [place] [address] Wegovy Question Social History Tobacco Use Types Packs/Day [...] Sex Assigned at Female 07/01/2024 2:14 PM MULTINEEDLE SHIRRER Legal Sex Female 6:22 PM CDT Gender Identity Female 07/01/2024 2:24 PM MULTINEEDLE SHIRRER Sexual Orientation Straight 07/01/2024 2: 24 PM MULTINEEDLE SHIRRER 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 [address] [place] [address] 05/30/2025 3:40 PM MULTINEEDLE SHIRRER Office Visit [facility] Medical Group Multispecialty Care - [place] [address] [address] [address] [place], [place] [address] Gino Slaughter MD 1188 [facility] [address] [place] [address] 06/02/2025 11:30 AM MULTINEEDLE SHIRRER Office Visit [place] [facility] THREE [facility], [facility] [address] [place] [address] Britney Turner, RESIDENTIAL SALES CONSULTANT 3 [facility], [facility] [address] [place] [address] documented as of this encounter Visit Diagnoses Not on filedocumented in this encounter Additional Health Concerns Assessment Noted Time PHQ-9 Depression Total Score: 1 06/01/19 25 4:58 PM MULTINEEDLE SHIRRER documented as of this encounter Care Teams Script Artist Relationship Specialty Start Date End Date Gino Slaughter MD 1188 [facility] [address] [place] [address] PCP - General INTERNAL MEDICINE 12/26/20 Ruth Dhillon MD [facility]. [address] [place] [address] [place] Clam Digger CARDIOVASCULAR DISEASE 10/17/15 Miguel Baires MD Three [facility]. [facility] [address] [place] [address] [place] Clam Digger CLINICAL CARDIAC ELECTROPHYSIOLOGY 03/20/25 documented as of this encounter
--- OUTSIDE RECORDS SUMMARY | 2025-05-06 16:49 | XMS_ITS | Encounter Summary ---
Author Organization [facility] - [facility] Address [facility] [place] [address] Care Team Providers Care Child And Family Services Specialist Name Role Phone Ruth Dhillon MD Unavailable [phone] Gino Slaughter MD Primary Care Provider [phone] Miguel Baires MD Unavailable [phone] Encounter Details Date Type Department Care Team (Late st Contact Info) Description 10/15/2021 MyChart Message Enc [facility] Medical Group Multispecialty Care - [place] [address] [place] [address] [address] [place] [address] Gino Slaughter MD 1188 [facility] 157 [place] [address] Anxiety Social History Tobacco Use Types Packs/Day Years Used Date Smoking Tobacco: Never Smokeless Tobacco: Never Comments:Consult by Dr. 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 [address] [place] [address] 05/30/2025 3:40 PM TAKE DOWN SORTER Office Visit [facility] Medical Group Multispecialty Care - [place] [address] [place] [address] 157 [address] [place], [place] [address] Gino Slaughter MD 1188 [facility] 157 [place] [address] 06/02/2025 11:30 AM TAKE DOWN SORTER Office Visit [facility] [facility] [address] [place] [address] Britney Turner, DIE DESIGNER 3 [facility], [facility] [address] [place] [address] documented as of this encounter Visit Diagnoses Not on filedocumented in this encounter Additional Health Concerns Assessment Noted Time PHQ-9 Depression Total Score: 0 01/16/20 10:46 AM CDT documented as of this encounter Care Teams Child And Family Services Specialist Relationship Specialty Start Date End Date Gino Slaughter MD 1188 [facility] [address] [place] [address] PCP - General INTERNAL MEDICINE 12/26/20 Ruth Dhillon MD Three [facility]. [address] [place] [address] [place] Watch Train Inspector CARDIOVASCULAR DISEASE 10/17/15 Miguel Baires MD Three [facility]. [facility] [address] [place] [address] Toni Watch Train Inspector CLINICAL CARDIAC ELECTROPHYSIOLOGY 03/20/25 documented as of this encounter
--- OUTSIDE RECORDS SUMMARY | 2025-05-06 16:49 | XMS_ITS | Encounter Summary ---
Author Organization [facility] Address [facility] [place] [address] Care Team Providers Care Acid Crane Operator Name Role Phone Ruth Dhillon MD Unavailable [phone] Gino Slaughter MD Primary Care Provider [phone] Miguel Baires MD Unavailable [phone] Encounter Details Date Type Department Care Team (Late st Contact Info) Description 06/12/2024 MyChart Message Enc [facility] Multispecialty Care - [place] [address] [place] [address] [address] [place] [address] Gino Slaughter MD 1188 [facility] [address] [place] [address] Anxiety Social History Tobacco Use [...] Sex Assigned at Female 07/01/2024 2:14 PM RELEASE SPECIALIST Legal Sex Female 6:22 PM CDT Gender Identity Female 07/01/2024 2:24 PM RELEASE SPECIALIST Sexual Orientation Straight 07/01/2024 2: 24 PM RELEASE SPECIALIST 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 [address] [place] [address] 05/30/2025 3:40 PM RELEASE SPECIALIST Office Visit [facility] Medical [facility] Multispecialty Care - [place] [address] [address] [place], [place] [address] Gino Slaughter MD [address] [place] [address] 06/02/2025 11:30 AM RELEASE SPECIALIST [facility] [address] [place] [address] Britney Turner, BRICK AND TILE MAKING MACHINE OPERATOR 3 [facility], [facility] [address] [place] [address] documented as of this encounter Visit Diagnoses Not on filedocumented in this encounter Additional Health Concerns Assessment Noted Time PHQ-9 Depression Total Score: 1 06/01/19 25 4:58 PM RELEASE SPECIALIST documented as of this encounter Care Teams Acid Crane Operator Relationship Specialty [place] [address] [place] [address] [address] [place] [address] PCP - General INTERNAL MEDICINE 12/26/20 Ruth Dhillon MD [facility]. [address] [place] [address] Alta Security Incident Handler CARDIOVASCULAR DISEASE 10/17/15 Miguel Baires MD Three [facility]. [facility] [address] [place], [place] [address] Toni Security Incident Handler CLINICAL CARDIAC ELECTROPHYSIOLOGY 03/20/25 documented as of this encounter
--- OUTSIDE RECORDS SUMMARY | 2025-05-06 16:49 | XMS_ITS | Encounter Summary ---
Author Organization [facility] Address [facility] [place] [address] Care Team Providers Care Employee Communications Coordinator Name Role Phone Ruth Dhillon MD Unavailable [phone] Gino Slaughter MD Primary Care Provider [phone] Miguel Baires MD Unavailable [phone] Encounter Details Date Type Department Care Team (Late st Contact Info) Description 05/03/2025 Results Follow-Up [facility] [address] Mariia Ellis RN BASIC METABOLIC PANEL, CBC W/DIFF, PROTIME/INR, VENOUS, TYPE & SCREEN Social History Tobacco Use Types Packs/Day Years [...] Sex Assigned at Female 07/01/2024 2:14 PM EDISCOVERY PROJECT MANAGER Legal Sex Female 6:22 PM CDT Gender Identity Female 07/01/2024 2:24 PM EDISCOVERY PROJECT MANAGER Sexual Orientation Straight 07/01/2024 2: 24 PM EDISCOVERY PROJECT MANAGER 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 Not on file documented as of this encounter Functional Status * Calculated C-SSRS Risk Score (Lifetime/Recent) Answer Date of Assessment Author Status No Risk Indicated 05/03/2025 10:05 AM Ene Borden RN Active * [place] Suicide Severity Rating Scale (Screener/Recent Self-Report) Question [...] st Contact Info) Description 05/15/2025 10:30 AM EDISCOVERY PROJECT MANAGER Office Visit [facility] THREE [facility], [facility] [address] [place] [address] Jennifer Eng APRN Three [facility] [address] [place] [address] 05/30/2025 3:40 PM EDISCOVERY PROJECT MANAGER Office Visit [facility] Medical Group Multispecialty Care - [place] [address] [address] [place] [address] [place] [address] [place] [address] [address] [place] [address] 06/02/2025 11:30 AM EDISCOVERY PROJECT MANAGER Office Visit [facility] THREE [facility], [facility] [address] [place], [place] [address] Britney Turner APRN 3 [facility], [facility] [address] [place], [place] [address] documented as of this encounter Visit Diagnoses Not on filedocumented in this encounter Additional Health Concerns Assessment Noted Time PHQ-9 Depression Total Score: 1 06/01/19 4:58 PM EDISCOVERY PROJECT MANAGER documented as of this encounter Care Teams Employee Communications Coordinator Relationship Specialty Start Date End Date Gino Slaughter MD 1188 [facility] [address] [place] [address] PCP - General INTERNAL MEDICINE 12/26/20 Ruth Dhillon MD [facility]. [address] [address] Toni Foundation Coordinator CARDIOVASCULAR DISEASE 10/17/15 Miguel Baires MD [address] [address] Toni Foundation Coordinator CLINICAL CARDIAC ELECTROPHYSIOLOGY 03/20/25 documented as of this encounter
--- OUTSIDE RECORDS SUMMARY | 2025-05-06 16:49 | XMS_ITS | Encounter Summary ---
Author Organization [facility] Address [facility] [place] [address] Care Team Providers Care Asset Protection Specialist Name Role Phone Ruth Dhillon MD Unavailable [phone] Gino Slaughter MD Primary Care Provider [phone] Miguel Baires MD Unavailable [phone] Encounter Details Date Type Department Care Team (Latest Contact Info) Description 04/12/2024 Integrity Directional Servicest Message Enc [facility] Medical Group Multispecialty Care - [place] [address] [address] [place] [address] Gino Slaughter MD 1188 [facility] 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 [address] [place] [address] 05/30/2025 3:40 PM VB NET DEVELOPER Office Visit [facility] Medical Group Multispecialty Care - [place] [address] [address] [place], [place] [address] Gino Slaughter MD [address] [place] [address] 06/02/2025 11:30 AM VB NET DEVELOPER Office [facility] [address] [place] [address] Britney Turner, GANTRY CRANE OPERATOR 3 [facility], [facility] [address] [place] [address] documented as of this encounter Visit Diagnoses Not on filedocumented in this encounter Additional Health Concerns Assessment Noted Time PHQ-9 Depression Total Score: 0 06/01/19 24 1:52 PM VB NET DEVELOPER documented as of this encounter Care Teams Asset Protection Specialist Relationship Specialty [place] [address] [place] [address] [address] [place] [address] PCP - General INTERNAL MEDICINE 12/26/20 Ruth Dihllon MD [facility]. [address] [place] [address] Lemitar Gateman CARDIOVASCULAR DISEASE 10/17/15 Miguel Baires MD Three [facility]. [facility] [address] [place] [address] Toni Gateman CLINICAL CARDIAC ELECTROPHYSIOLOGY 03/20/25 documented as of this encounter
--- OUTSIDE RECORDS SUMMARY | 2025-05-06 16:49 | XMS_ITS | Encounter Summary ---
Author Organization [facility] Address [facility] [place] [address] Care Team Providers Care Foot Piece Assembler Name Role Phone Ruth Dhillon MD Unavailable [phone] Gino Slaughter MD Primary Care Provider [phone] Miguel Baires MD Unavailable [phone] Encounter Details Date Type Department Care Team (Late st Contact Info) Description 12/19/2021 MyChart Message Enc [facility] Medical Group Multispecialty Care - [place] [address] [address] [place] [address] Gino Slaughter MD 1188 [facility] [address] [place] [address] COVID Social History Tobacco Use Types Packs/Day Years Used Date Smoking Tobacco: Never Smokeless Tobacco: Never Comments:Consult by Dr. 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 [address] [place] [address] 05/30/2025 3:40 PM SALES TRAINING COORDINATOR Office Visit [facility] Medical Group Multispecialty Care - [place] [address] [address] [place] [address] Gino Slaughter MD 1188 [facility] 157 [place] [address] 06/02/2025 11:30 AM SALES TRAINING COORDINATOR Office Visit [facility] THREE [facility], [address] [place] [address] Britney Turner, TOW PICKER 3 [facility], [facility] [address] [place] [address] documented as of this encounter Visit Diagnoses Not on filedocumented in this encounter Additional Health Concerns Assessment Noted Time PHQ-9 Depression Total Score: 0 11/14/19 22 8:34 AM CDT documented as of this encounter Care Teams Foot Piece Assembler Relationship Specialty Start Date End Date Gino Slaughter MD 1188 [facility] [address] [place] [address] PCP - General INTERNAL MEDICINE 12/26/20 Ruth Dhillon MD Three [facility]. [address] [place] [address] Toni Exit Booth Agent CARDIOVASCULAR DISEASE 10/17/15 Miguel Baires MD Three [facility]. [facility] [address] [place] [address] Toni Exit Booth Agent CLINICAL CARDIAC ELECTROPHYSIOLOGY 03/20/25 documented as of this encounter
--- OUTSIDE RECORDS SUMMARY | 2025-05-06 16:49 | XMS_ITS | Clinical Summary ---
Author Organization [facility] Address [address] [place] [address] Care Team Providers Care Program Support Clerk Name Role Phone Gino Slaughter MD Primary Care Provider [phone] Aubree Shepherd PA Unavailable [phone] Allergies Active Allergy Reactions Criticality Noted Date Comments Shellfish Containing Products Swelling,Other (See comments) Medium 07/29/2012 Lips, hands, face Spinach Swelling,Other (See comments),Unknown Medium 07/29/2012 Medications sertraline (ZOLOFT) 25 mg tablet Take 1 tablet (25 mg total) by mouth daily 2 Active Wegovy 0.25 mg/0.5 mL auto-injector Inject 0.25 mg under the skin once a week 5 Active drospirenone-et hinyl estradioL (ANASTASIYA,SOFIVI) 3-0.02 mg per tablet Take 1 tablet by mouth nightly Active ascorbic acid (VITAMIN C) 500 mg tablet,chewable Take 1 tablet/chew tab (500 mg total) by mouth 2 (two) times a day 5 Active cholecalciferol (VITAMIN D-3) 25 mcg (1,000 unit) tablet Take 1 tablet (1,000 Units total) by mouth 2 (two) times a day Then resume once daily dosing 5 Active triamcinolone (KENALOG) 0.1 % ointmentIndicat ions:Rash Apply topically 2 (two) times a day 5 Active loratadine (CLARITIN) 10 mg tabletIndicatio ns:Rash Take 1 tablet (10 mg total) by mouth daily 5 02/24/20 Active famotidine (PEPCID) 20 mg tabletIndicatio ns:Rash Take 1 tablet (20 mg total) by mouth 2 (two) times a day 5 02/24/20 Active Active Problems Problem Noted Date Diagnosed Date Complex tear of lateral meni scus of right knee as current injury 07/12/2024 Complex tear of medial meniscus of right knee Dysmenorrhea 07/31/2021 Cysts of both ovaries 07/31/2021 Palpitations 05/06/2017 Ventricular premature depolarization 05/06/2017 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 Skin benign neoplasm 01/18/2014 Encounters Date Type Department Care Team Description 05/03/2025 Orders Only [facility] Health Information Management 1 [place] [address] Scanning, Provider 03/27/2025 Orders Only [facility] Information Management 1 [place] [address] Scanning, Provider 03/15/2025 Telephone [facility] Medical Group Sports Medicine and Primary Care at [address] [place] [phone] Anita Cloud MA pending auth 03/07/2025 3:55 PM CDT Ancillary Procedure [facility] Medical [facility] Imaging at [address] [phone] 03/07/2025 3:45 PM CDT Office Visit [facility] Medical Group Orthopedic and Sports Medicine [address] [place] [phone] Aubree Shepherd PA Acute medial meniscus tear of right knee, initial encounter (Primary Dx) 02/23/2025 4:30 PM CDT Office Visit [facility] [address] [place] [phone] Clarita Morales, MIREYA Rash (Primary Dx); Encounter for vaccination from Last 3 Months Immunizations Immunization Administration Dates Next Due Influenza, Quadrivalent, Rec ombinant, Egg Free, Preservative Free, Intramuscular 03/05/2016 Influenza, Quadrivalent, Spl it, Intramuscular 02/20/2018,02/16/2017,02/26/2015 Influenza, Quadrivalent, Spl it, Preservative Free, Intradermal 02/27/2015 Influenza, Quadrivalent, Spl it, Preservative Free, Intramuscular 02/28/2020 Influenza, Trivalent, Preser vative Free, Intramuscular 02/23/2025,02/16/2024 Influenza, Unspecified 03/05/2022,2019,02/17/2019,02/18 Pfizer SARS-CoV-2 Monovalent Vaccination (12+ Yrs) PURPLE 03/22/2021 Tdap 11/27/2015 Surgical History Surgery Date Site/Laterality Comments ANTERIOR CRUCIATE LIGAMENT REPAIR Right SECTION x2 WISDOM TOOTH EXTRACTION FERTILITY SURGERY HYSTERECTOMY 05/18/2022 EXPLORATORY LAPAROTOMY Medical History Medical History Date Comments Bigeminy PONV (postoperative nausea and vomiting) Motion sickness Anxiety Ovarian cyst Arrhythmia Bradycardia Acid reflux Family History Medical History Relation Name Comments Melanoma Father Family history of melanoma - (Added by TW Conv) Stroke Father Family history of stroke - (Added by TW Conv) Thyroid disease Neg Hx Relation Name Status Comments Father Social History Tobacco Use Types Packs/Day Years Used Date Smoking Tobacco: Never Smokeless Tobacco: Never Tobacco Cessation:Counseling Given: Not Answered Alcohol Use Standard Drinks/Week Comments Yes 1 (1 standard drink = 0.6 oz pur e alcohol) rare AUDIT-C Answer Date Recorded Q1: How often do you have a drink containing alc ohol? Monthly or less 10/11/2024 Q2: How many drinks containi ng alcohol do you have on a typical day when you are drinking? 1 or 2 10/11/2024 Q3: How often do you have si x or more drinks on one occasion? Never 10/11/2024 PHQ-2 Answer Date Recorded PHQ-2 Total Score (If total score is 3 or more points, staff should administer the PHQ-9) 0 02/16/2024 Personal Safety Answer Date Recorded Have you ever been in or are you currently in a harmful physical or emotional relationship or is someone making you feel afraid or unsafe? Denies 07/12/2024 Comments No Sex and Gender Information Value Date Recorded Sex Assigned at Not on file Legal Sex Female 11:03 AM PRINCIPAL HARDWARE ARCHITECT Gender Identity Not on file Sexual Orientation Not on file Obstetrics History Para Term AB IAB SAB Ectopic Multiple Livin g Live Births 2 2 2 Date Outcome GA Total Labor Labor/2nd/3rd Weight Sex Type Anes PTL Nidia A1 A5 Name Clin Term Term Last Filed Vital Signs Vital Sign Reading Time Taken Comments Blood Pressure 113/75 03/07/2025 4:00 PM CDT Pulse 59 03/07/2025 4:00 PM CDT Temperature 37.1 C (98.8 F) 07/12/2024 9:58 AM PRINCIPAL HARDWARE ARCHITECT Respiratory Rate 18 07/12/2024 12:21 PM PRINCIPAL HARDWARE ARCHITECT Oxygen Saturation 98% 07/12/2024 12:21 PM PRINCIPAL HARDWARE ARCHITECT Inhaled Oxygen Concentration - - Weight 90.7 kg (200 lb) 03/07/2025 4:00 PM CDT Height 170.2 cm (5' 7) 03/07/2025 4:00 PM CDT Body Mass Index 31.32 03/07/2025 4:00 PM CDT Plan of Treatment Health Maintenance Due Date Last Done Comments Hepatitis C Screening 1982 Varicella Vaccines (1 of 2 - 13+ 2-dose series) 10/01/1995 Hepatitis B Screening 2000 Regular Well Visit/Exam 18-64 2000 Pneumococcal vaccine <65 (1 of 2 - PCV) 2001 HPV Vaccines (1 - 3-dose SCD M series) 2009 Covid-19 Vaccine (2 - 2024-2 6 season) 2025 03/22/2021 Depression Screening 02/15/2025 02/16/2024 DTaP/Tdap/Td Vaccine (2 - Td or Tdap) 11/26/2025 11/27/2015 Breast Cancer Screening-Mammogram 12/05/2025 025, 09/18/2023 Influenza Vaccine Completed 02/23/2025, , 03/05/2022, Additional history exists Medical Devices Implanted Type Area Family Preservation Officer Device Identifier Shelf Expiration Date Model / Serial / Lot [employer] Suture [place] 2-0 1.5in 24 Degree Fiberwire [facility] Ar-4580-24 - [id number] Implanted:Qty: 1 on 07/12/2024 by Bjorn Kim MD at [facility] Right: Knee [employer] 08/15/2028 AR-4580-24 / / [id number] [employer] Suture [place] 2-0 1.5in 24 Degree Fiberwire Curved Fiberstitch Ar-4580-24 - [id number] Implanted:Qty: 1 on 07/12/2024 by Bjorn Kim MD at [facility] Right: Knee [employer] 08/15/2028 AR-4580-24 / / [id number] [employer] Suture [place] 2-0 1.5in 24 Degree Fiberwire Curved Fiberstitch Ar-4580-24 - [id number] Implanted:Qty: 1 on 07/12/2024 by Bjorn Kim MD at [facility] Right: Knee [employer] 08/15/2028 AR-4580-24 / / [id number] [employer] Suture [place] 2-0 1.5in 24 Degree Fiberwire Curved Fiberstitch Sd-4580-24 - [id number] Implanted:Qty: 1 on 07/12/2024 by Bjorn Kim MD at [facility] Right: Knee [employer] 09/14/2028 AR-4580-24 / / [id number] Procedures Procedure Name Priority Date/Time Associated Diagnosis Comments SCAN - OTHER ORDERS 05/03/2025 3:44 PM PRINCIPAL HARDWARE ARCHITECT SCAN - OTHER ORDERS 03/27/2025 XR KNEE RIGHT 3 VIEWS Schedule Routine, Read Routine (OP Routine) 03/07/2025 3:57 PM CDT Acute medial meniscus tear of right knee, initial encounter SCREENING MAMMOGRAM BILATERAL W ANGEL Schedule Routine, Read Routine (OP Routine) 12/05/2024 1:58 PM CDT Screening mammogram, encounter for from Last 3 Months or Most Recently Relevant to Health Maintenance Results * SCAN - OTHER ORDERS (05/03/2025 3:44 PM PRINCIPAL HARDWARE ARCHITECT) us Provider Scanning Final Result * SCAN - OTHER ORDERS (03/27/2025) us Provider Scanning Final Result * XR Knee Right 3 View (03/07/2025 3:57 PM CDT) Anatomical Region Laterality Modality Lower Extremities, Knee Right Digital Radiography Narrative 03/13/2025 12:04 PM CDT Radiographs of the right knee reviewed and interpreted. No acute fractures or destructive osseous lesions. Minimal degenerative changes present with KL grade 1 chondrosis noted. Overall joint space preserved. Aubree SANDERS IMG XR PROCEDURES Final Result * Screening Mammogram Bilateral W Angel (12/05/2024 1:58 PM CDT) Anatomical Region Laterality Modality Breast Bilateral Mammography Impressions 12/05/2024 2:38 PM CDT BI-RADS ATLAS category (overall): 1 - Negative There is no mammographic evidence of malignancy. A 1 year screening mammogram is recommended. The patient has been or will be contacted. We recommend annual screening mammography for women at average risk of breast cancer beginning at age 40, based on guidelines of the [place] [employer] (ACR Practice Parameter for the Performance of Screening and Diagnostic Mammography) and [place] [employer]. For women with and elevated risk of breast cancer, please refer to the ACR Practice Parameter for specific screening recommendations. The patient will be entered into a reminder system with a target due date of 1 year for her next screening exam. Narrative 12/05/2024 2:38 PM CDT Screening Mammogram Bilateral W Angel: 12/05/24 The study was acquired using full field digital technology and interpreted from soft copy. 2D digital mammographic views, as well as 3D digital tomosynthesis were performed in the CC and MLO projections. CLINICAL: Screening mammogram, encounter for. No relevant medical history has been documented for this patient. No known family history of breast cancer. COMPARISON: Baseline Screening Mammography. No prior mammography is available for comparison. BREAST TISSUE: The breasts are extremely dense, which lowers the sensitivity of mammography. FINDINGS: No suspicious masses, suspicious calcifications, or other suspicious findings are seen within either breast. Self Screening Mammogram IMG MAMMO PROCEDURES Fi nal Result from Last 3 Months or Most Recently Relevant to Health Maintenance Insurance [email or web address] [place] [email or web address] [place] Advance Directives For more information, please contact: [phone] * Full Code (Latest Code Status on File) Date Activated Date Inactivated Comments 07/31/2021 11:59 AM 07/31/2021 6:51 PM Care Teams Program Support Clerk Relationship Specialty Start Date End Date Gino Slaughter MD [address] [place] [address] PCP - General Internal Medicine 07/31/21 Aubree Shepherd PA [address] [place] [address] [address] [place] [address] Physician Yarn Weigher Orthopedic Surgery 07/12/24
--- OUTSIDE RECORDS SUMMARY | 2025-05-06 16:49 | XMS_ITS | Encounter Summary ---
Author Organization [facility] Address [facility] [place] [address] Care Team Providers Care Patient Assessment Coordinator Name Role Phone Ruth Dhillon MD Unavailable [phone] Gino Slaughter MD Primary Care Provider [phone] Miguel Baires MD Unavailable [phone] Encounter Details Date Type Department Care Team (Late st Contact Info) Description 04/11/2025 HubHub Message Enc [facility] [address] [place] [address] Miguel Baires MD [facility]. 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 [address] [place] [address] 05/30/2025 3:40 PM MELTER SUPERVISOR OXYGEN FURNACE Office Visit [facility] Medical Group Multispecialty Care - [place] [address] [address] [place], [place] [id number] Gino Slaughter MD [address] [facility] [address] [place] [address] 06/02/2025 11:30 AM MELTER SUPERVISOR OXYGEN FURNACE Office Visit [facility] [facility] [address] [place] [address] Britney Turner, PATIENT REGISTRATION REP 3 [facility], [facility] [address] [place] [address] documented as of this encounter Visit Diagnoses Not on filedocumented in this encounter Additional Health Concerns Assessment Noted Time PHQ-9 Depression Total Score: 1 06/01/19 25 4:58 PM MELTER SUPERVISOR OXYGEN FURNACE documented as of this encounter Care Teams Patient Assessment Coordinator Relationship Specialty Start Date End Date Gino Slaughter MD [address] [facility] [address] [place] [address] PCP - General INTERNAL MEDICINE 12/26/20 Ruth Dhillon MD Three [facility]. [address] [place] [address] Toni Metal Sorter CARDIOVASCULAR DISEASE 10/17/15 Miguel Baires MD Three [facility]. [facility] [address] [place] [address] Toni Metal Sorter CLINICAL CARDIAC ELECTROPHYSIOLOGY 03/20/25 documented as of this encounter
--- OUTSIDE RECORDS SUMMARY | 2025-05-06 16:49 | XMS_ITS | Data Portability ---
Author Organization [facility] Address [address] [place] [address] Assessment No assessment recorded. Plan of Treatment Reminders Order Date Submit Date Provider Last Modified By Organization Details Last Modified Time Details Appointments None record ed. Lab None record ed. Referral None record ed. Procedures None record ed. Surgeries None record ed. Imaging None record ed. Medication Orders None record ed. Patient TargetsNo targets recorded. Patient InstructionsNo instructions recorded. Reason for Referral None Reported. Results Created Date Observation Date Name Description Value Unit Range Abnormal Flag Note LastModifiedBy Organization Detail LastModifiedTime 04/14/20 17 [address] [facility] [place] [address] Echoca rdiogr aphy Report Pat.Na me: ARASELI BRANDON Pat.ID : [id number] e: 2016 Refer. : [id number], RUTH DHILLON Exam Time: 8:48:0 0 AM Study Type:E CHO WITH CARDIA C DOPPLE R COMP Height : 67in Weight : 179.63 lb BSA: 1.93 m2 Age: [birth year]36 Y Sex: FEMALE BP: 123/74 HR: 62 bpm Sonogr phr: Jonas Bragg RD Pat. Stat.: Outpat ient Reason for Study: Palpit ations , Chest Pressu re Proced ures:2 D, M-mode , Dopple r, Color Flow Race: W ++++++ ++++++ ++++++ ++++++ ++++++ ++++++ SUMMAR Y: ++++++ ++++++ ++++++ ++++++ ++++++ ++++++ Estima ba left ventri cular ejecti on fracti on is 55-60% . Left ventri cular diasto lic functi on is normal . Wall motion appear s normal in all segmen ts. Trace aortic , mitral , pulmon ic, tricus pid regurg itatio n. The underl izzy rhythm is sinus rhythm with freque nt PVCs. ++++++ ++++++ ++++++ ++++++ ++++++ ++++++ FINDIN GS: ++++++ ++++++ ++++++ ++++++ ++++++ ++++++ LV: The left ventri cular size is normal . Estima ba left ventri cular ejecti on fracti on is 55-60% . No concen tric left ventri cular hypert rophy. Left ventri cular diasto lic functi on is normal . WM: Wall motion appear s normal in all segmen ts. RV: The right ventri melanie size is normal . The right ventri cular functi on is normal . IVS: No eviden ce of ventri cular septal defect . LA: The left atrial size is normal . RA: The right atrial size is normal . IAS: Atrial septum appear s intact . CLAUDINE: No eviden ce of perica rdial effusi on. AO: Normal aortic root. PA: Estima ba right atrial pressu re of 3 mmHg. Unable to reliab ly quanti wu pulmon demetri systol ic pressu re. SVn: Inferi or vena cava is small. Inferi or vena cava shows >50% collap se with respir ation consis tent with normal right atrial pressu re. Other: The underl izzy rhythm is sinus rhythm with freque nt PVCs. AV: The aortic valve is trilea flet. No eviden ce of aortic valve stenos is. Trace aortic regurg itatio n. MV: Trace mitral regurg itatio n. No eviden ce of mitral stenos is. PV: Trace pulmon ic regurg itatio n. No eviden ce of pulmon ic valve stenos is. TV: A trace of tricus pid regurg itatio n. No eviden ce of tricus pid valve stenos is. ++++++ ++++++ ++++++ ++++++ ++++++ ++++++ MEASUR EMENTS : ++++++ ++++++ ++++++ ++++++ ++++++ ++++++ DOPPLE R LVOT LVOTpk PG 2 mmHg LVOTmn PG 1 mmHg LVOTpk Chinmay 65.8 cm/s (70-11 0)* LVOT SV 63 ml LVOT TVI 16.7 cm Pulmon demetri Veins PVnpkV eld 57.7 cm/s PVnVs/ Vd 0.6 PVnpkV els 33 cm/s PVn A Dur 109 msec AV Forwar d Flow AV TVI 21.9 cm AV pkPG 3 mmHg AV pkVel 93.1 cm/s (100-1 70)* Area (TVI) 2.9 cm? (3-5)* AV mnPG 2 mmHg Area (Chinmay) 2.69 cm? (3-5)* MV Forwar d Flow MV DeTm 77 msec MV pkE 94.1 cm/s (60-13 0) MV E/A 1.6 MV pkA 59.2 cm/s PV Forwar d Flow PV pkVel 61.8 cm/s (60-90 )? PV AC 76 msec PV pkPG 2 mmHg PV Regurg Flow PV pkVel 63.8 cm/s Lat E' Lat e 18.3 cm/s Lat E/E' Lat E/e 5.1 Med E' Med e 13.2 cm/s Med E/E' Med E/e 7.1 Aortic Valve Aortic Valve Ar 1.5 Aortic Valve Ve 0.71 PV Antegr fauzia Flow Accele ration Sl 637 cm/s? PV Regurg itant Flow Peak Gradie nt ( 2 mmHg Right Atrium Simpso n's Disk 20 2D Left Ventri melanie LVIDd 4.74 cm (3.6-5 .2) LV ESV 38.5 ml LVIDs 3.17 cm (2.3-3 .9) LV ESV 39.3 ml LngAxd 8.33 cm LVESV BP 40.9 ml LngAxd 7.71 cm LV EF 58.2 % LV EDV 92.1 ml LV EF 62.9 % LV EDV 106 ml LV EF BP 59.9 % LVEDV BP 102 ml LV SV 53.6 ml LngAxs 6.98 cm LV SV 66.7 ml LngAxs 6.19 cm LV SV BP 61.1 ml LVPW LVPWd 0.793 cm Right Ventri melanie RVIDd 3.82 cm (2.6-4 .3) Right Ventri melanie 29.5 mm Right Ventri melanie 38.4 mm Right and Left [address] [place] 71.5 mm Ventri cular Septum IVSd 0.817 cm Left Atrium LA VOLBP 47.3 ml LVOT LVOT 2.2 cm LVOTAr ea 3.8 cm? Ratios IVS LA Biplan e LAVol I BP 24.5 ml/m? RA Single Plane Right Atrium MO 10.1 mm Right Atrium Sy 19 ml Right Atrium Sy 44.2 mm Right Atrium Sy 9.8 ml/m? Right Atrium Sy 10.1 cm? MMODE Ratios LA/Ao 1.1 (0.87- 1.1) Aorta Ao Rt 2.9 cm (zsc 0.4) Left Atrium LAIDs 3.2 cm Signed 2016 02:22 PM Ruth Dhillon M.D. [email or web address] [facility] [address] [place], [address], 04/14/2017 15:55:23 04/21/20 17 04/14/2017 US, echoc ardio gram, trans thora cic, compl ete, w/ color flow No observ ation record ed. [email or web address] Kane Cardiovascula r 3 [facility] [address], [place], [address], 04/23/2017 08:33:27 05/04/20 17 04/14/2017 annette r monit or No observ ation record ed. [email or web address] Not Available 2016 12:11:42 Result Notes None recorded. Procedures Surgical History Date Name Laterality Status Provider Name and Address Organization Details Recorded Time 8 Knee Surgery completed Makeda Victoria [facility] 06/26/2016 11:06:02 Caesarean Section completed Makeda Victoria [facility] 06/26/2016 11:06:13 LEEP completed Makeda Victoria [facility] 06/26/2016 11:06:19 Imaging Results None recorded. Procedure Notes None recorded. Medical Equipment None Reported. Allergies Allergen ID Allergen Name Allergen Category Reaction Reaction Severity Criticality Documentation Date Start Date Code Code System Note Provider Name and Address Organization Details Recorded Time 56925 shellfish derived food,medi cation facial swelling moderate Not available 06/26/2016 [facility] 11:03:22 28902 spinach extract food facial swelling Not available Not available 06/26/2016 73253 76 RxNorm Makeda kurtz [facility] 7 11:03:33 Medications Name Sig Start Date Stop Date Status Note LastModified by Organization Details LastModified Time hydrocodone 5 mg-acetaminophe n 325 mg tablet 06/26 completed Not Available Not Available Not Available naproxen 500 mg tablet 06/26 completed Not Available Not Available Not Available Fluvirin 3452-3117 45 mcg (15 mcg x 3)/0.5 mL intramuscular suspension 06/26 completed Not Available Not Available Not Available Fluzone Quad 7163-2153 60 mcg (15 mcg x 4)/0.5 mL IM suspension 06/26 completed Not Available Not Available Not Available Vitals Date Recorded Body height Body weight Body mass index (BMI) Heart rate Respiratory rate Systolic And Diastolic Provider Name and Address Organization Details Last Updated DateTime 7 170.18 cm 83933.3 6 g 30.4 kg/m2 62 /min 16 /min 100/64 mm[Hg] Makeda Victoria [facility] 7 10:37:08 Social History Question Answer Notes LastModified by Organizat ion Details LastModified Time Tobacco Smoking Status Never Smoker Makeda kurtz [facility] 06/26/2016 11:04:47 Hard Of Hearing Or Deaf In One Or Both Ears? No Information not available 06/26/2016 Legally Blind In One Or Both Eyes? No Information not available 06/26/2016 Marital Status Informatio n not available 06/26/2016 Seat Belts Used Routinely Yes Information not available 06/26/2016 Sex: Unknown Functional Status Question Answer Note LastModified by Organizat ion Details LastModified Time What is your level of alcohol consumption? 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 Family History Relationship Description Onset Age of this Age Resolved Age Notes LastModified by Organization Details LastModified Time Father Cerebrovascu lar accident [email or web address] Not available 01/2017 11:03:57 Maternal Grandmother Heart disease [email or web address] Not available 2016 11:04:40 Medical History Condition Response Coronary Artery Disease N Other N Atrial Fibrillation N High Blood Pressure N Kidney or Bladder Problems N Thyroid Problems N GI Problems N Depression N COPD N Blood Clots N Skin Problems N Anemia N Heart Attack (CO) N Anxiety Disorder N Diabetes N Muscle, Joint, or Bone Problems N Seizures/Epilepsy N Acid Reflux (GERD) N Cancer N Stroke N Asthma N Allergies N High Cholesterol N Hepatitis N Liver Disease N Headaches N Heart Failure N Osteoporosis N Gynecological HistoryNo gynecological history recorded. Obstetrics History GPAL:G 0 P 0 0 0 0 Immunizations Vaccine Type Date Status Note Provider Nam e and Address Organization Details Recorded Time influenza, intradermal, quadrivalent, preservative free 5 completed Betzy Manzano MA [place], [place] - [place] 03/01/2015 09:18:34 influenza, intradermal, quadrivalent, preservative free 6 completed Not Available [facility] 06/18/2019 02:11:36 Past Encounters Encounter ID Performer Location Encounter Start Date Encounter Closed Date Diagnosis/Indication Diagnosis SNOMED-CT Code Diagnosis ICD10 Code Diagnosis IMO Codes Diagnosis Note [id number] Ja Chase MD [address] [address] 06/26/2016 10:22:09 07/10/2016 16:41:03 Pain in left foot [id number] 62423 M79.672 She is to see Dr Giorgio Vergara in July, we will see whether she could be seen sooner. Continue icing, hold off running for now, OK to take otc ibuprofen while nursing. Health Concerns Section Related Observation LastModified by Organization Detai ls LastModified Time None Recorded Concern Status LastModified by Organization Details LastModified Time None Recorded Advance Directives Directive None Recorded Payers Insurance Date Sequence Insurance Name Policy Number Policy Fish Covered Member ID Fish Member ID Guarantor Name 06/26/2016 1 [facility] S[employer]ATURE [employer]MINISTRAT[employer] (PPO) [id number] Araseli Brandon [id number] Araseli Brandon Notes Date Note Type Note Provider Name and Address Organization Details Recorded Time 06/26/2016 text/html Pt came in today for an acute visit c/o 3 week h/o L foot pain. She recently resumed running after a hiatus of 1 and a 1/2 years, and she is already scheduled to see Staff Development Educator in July. She has noticed that when she stops running for a few days, the pain quits, but it tends to restart after she resumes running. The pain is stabbing in nature. Icing does help, and she is nursing her 6 month old son, so is concerned about taking oral medication. Ja Chase MD Attn: Accounting,[address] [place], [address], [place] [facility] 06/27/2016 15:16:37 OBGyn Episode No OBEpisode recorded.
--- OUTSIDE RECORDS SUMMARY | 2025-05-06 16:49 | XMS_ITS | Encounter Summary ---
Author Organization [facility] - [facility] Address [facility] [place] [address] Care Team Providers Care Human Geography Faculty Member Name Role Phone Ruth Dhillon MD Unavailable [phone] Gino Slaughter MD Primary Care Provider [phone] Miguel Baires MD Unavailable [phone] Encounter Details Date Type Department Care Team (Late st Contact Info) Description 08/02/2024 MyChart Message Enc [facility] Medical Group Multispecialty Care - [place] [address] [place] [address] [address] [place] [address] Gino Slaughter MD [address] 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 [address] [place] [address] 05/30/2025 3:40 PM WIRELINE OPERATOR Office Visit [facility] Medical Group Multispecialty Care - [place] [address] [address] [place], [place] [address] Gino Slaughter MD [address] [facility] [address] [place] [address] 06/02/2025 11:30 AM WIRELINE OPERATOR Office Visit [facility] [facility], [facility] [address] [place] [address] Britney Turner, GRAPHIC USER INTERFACE DESIGNER 3 [facility], [facility] [address] [place] [address] documented as of this encounter Visit Diagnoses Not on filedocumented in this encounter Additional Health Concerns Assessment Noted Time PHQ-9 Depression Total Score: 1 06/01/19 25 4:58 PM WIRELINE OPERATOR documented as of this encounter Care Teams Human Geography Faculty Member Relationship Specialty Start Date End Date Gino Slaughter MD [address] [facility] [address] [place] [address] PCP - General INTERNAL MEDICINE 12/26/20 Ruth Dhillon MD [facility]. [address] [place] [address] Laramie Sleeve Separator CARDIOVASCULAR DISEASE 10/17/15 Miguel Baires MD Three [facility]. [facility] [address] [place] [address] Laramie Sleeve Separator CLINICAL CARDIAC ELECTROPHYSIOLOGY 03/20/25 documented as of this encounter
--- OUTSIDE RECORDS SUMMARY | 2025-05-06 16:49 | XMS_ITS | Encounter Summary ---
Author Organization [facility] - [facility] Address [facility] access hospital[address] [place] [address] Care Team Providers Care Wood Fence Installer Name Role Phone Ruth Dhillon MD Unavailable [phone] Gino Slaughter MD Primary Care Provider [phone] Miguel Baires MD Unavailable [phone] Encounter Details Date Type Department Care Team (Late st Contact Info) Description 11/13/2021 MyChart Message Enc [facility] Medical Group Multispecialty Care - [place] [address] [address] [place] [address] Gino Slaughter MD [address] [facility] [address] [place] [address] EKG Social History Tobacco Use Types Packs/Day Years [...] Sex Assigned at Female 07/01/2024 2:14 PM UNIT CONTROLLER Legal Sex Female 6:22 PM CDT Gender Identity Female 07/01/2024 2:24 PM UNIT CONTROLLER Sexual Orientation Straight 07/01/2024 2: 24 PM UNIT CONTROLLER Occupation Industry 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 No / Unsure 11/13/2021 7:47 AM CDT documented as of this encounter Functional Status * Calculated C-SSRS Risk Score (Lifetime/Recent) Answer Date of Assessment Author Status No Risk Indicated 11/13/2021 8:22 AM CDT Gino Slaughter MD Active * Edwards Suicide Severity Rating Scale (Screener/Recent Self-Report) Question Answer Date of Assessment Author Status 1. Wish to be (Past 1 Month) No 11/13/2021 8:22 AM CDT Gino Slaughter MD Active 2. Non-Specific Active Suici binta Thoughts (Past 1 Month) No 11/13/2021 8:22 AM NEERUT Gino Slaughter MD Active 6. Suicidal Behavior (Lifetime) No 11/13/2021 8:22 AM CDT Gino Slaughter MD Active documented as of this encounter Plan of Treatment Upcoming Encounters Date Type Department Care Team (Late st Contact Info) Description 05/15/2025 10:30 AM UNIT CONTROLLER Office Visit [facility] [address] [place] [address] Jennifer Eng APRN Three [facility] [address] [place] [address] 05/30/2025 3:40 PM UNIT CONTROLLER Office Visit [facility] Medical Group Multispecialty Care - [place] [address] [address] [place] [address] Gino Slaughter MD [address] [facility] [address] [place] [address] 06/02/2025 11:30 AM UNIT CONTROLLER [facility] [place] [facility] [address] [place] [address] Britney Turner APRN 3 [facility], [address] [place], [place] [id number] documented as of this encounter Visit Diagnoses Not on filedocumented in this encounter Additional Health Concerns Assessment Noted Time PHQ-9 Depression Total Score: 0 11/14/19 22 8:34 AM CDT documented as of this encounter Care Teams Wood Fence Installer Relationship Specialty Start Date End Date Gino Slaughter MD [address] [facility] [address] [place] [address] PCP - General INTERNAL MEDICINE 12/26/20 Ruth Dhillon MD Three [facility]. [address] [place], [place] [address] Toni Apple Picking Supervisor CARDIOVASCULAR DISEASE 10/17/15 Miguel Baires MD Three [facility]. [address] [place], [place] [address] Toni Apple Picking Supervisor CLINICAL CARDIAC ELECTROPHYSIOLOGY 03/20/25 documented as of this encounter
--- OUTSIDE RECORDS SUMMARY | 2025-05-06 16:49 | XMS_ITS | Encounter Summary ---
Author Organization [facility] Healthcare Address [address] [place] [address] Care Team Providers Care Suture Winder Hand Name Role Phone Gino Slaughter MD Primary Care Provider [phone] Aubree Shepherd Unavailable [phone] Encounter Details Date Type Department Care Team (Late st Contact Info) Description 05/03/2025 Orders Only [facility] Health Information Management [address] [place] [address] Scanning, Provider Social History Tobacco Use Types Packs/Day Years Used Date Smoking Tobacco: Never Smokeless Tobacco: Never Alcohol Use Standard Drinks/Week Comments Yes 1 [...] on file Legal Sex Female 11:03 AM [employer] RETAILER SALES CONSULTANT Gender Identity Not on file Sexual Orientation Not on file documented as of this encounter Plan of Treatment Not on file documented as of this encounter Procedures Procedure Name Priority Date/Time Associated Diagnosis Comments SCAN - OTHER ORDERS 05/03/2025 3:44 PM [employer] RETAILER SALES CONSULTANT documented in this encounter Results * SCAN - OTHER ORDERS (05/03/2025 3:44 PM [employer] RETAILER SALES CONSULTANT) us Provider Scanning Final Result documented in this encounter Visit Diagnoses Not on filedocumented in this encounter Care Teams Suture Winder Hand Relationship Specialty Start Date End Date Gino Slaughter MD [address] [place] [address] PCP - General Internal Medicine 07/31/21 Aubree Shepherd PA [address] [place] [address] [address] [place] [address] Physician Teacher Of Gifted Students Orthopedic Surgery 07/12/24 documented as of this encounter
--- OUTSIDE RECORDS SUMMARY | 2025-05-06 16:49 | XMS_ITS | Clinical Summary ---
Author Organization [facility] Address [address] [place] [address] Care Team Providers Care Chiropractic Care Name Role Phone Ruth Ruiz MD Unavailable [phone] Gino Slaughter MD Primary Care Provider [phone] Chanel Morris MD Unavailable [phone] Allergies Active Allergy Reactions Criticality Noted Date Comments Shellfish Protein-Containing Drug Products Swelling Medium 03/13/2021 Lip swelling. Spinach Swelling Low 10/26/2015 Generalized. Medications MAGNESIUM OR Take by mouth daily. Active vitamin D3, cholecalciferol, 1000 UNIT Tab tablet Take 2 tablets (2,000 Units total) by mouth daily. Active drospirenone-eth inyl estradiol 3-0.02 MG tablet Take 1 tablet by mouth nightly. 09/23/19 24 Active [place]-3 Fatty Acids (KP FISH OIL) 1200 MG Cap Take 1,280 mg by mouth daily. Active Turmeric 500 MG Cap Take 1 capsule by mouth daily. Active albuterol sulfate HFA 108 (90 Base) MCG/ACT inhalerIndicatio ns:Mild intermittent reactive airway disease without complication (HHS/HCC) Inhale 2 puffs into the lungs every 6 (six) hours as needed for Wheezing. 18 g 5 01/24/20 25 Active loratadine (CLARITIN) 10 MG tablet Take 1 tablet (10 mg total) by mouth daily. 02/24/20 25 026 Active semaglutide-weig ht management (WEGOVY) 1 mg/dose injection (PEN)Indications :Weight Loss Inject 1 mg into the skin once a week. Indications : Weight Loss 2 mL 2 02/28/20 Active ondansetron (ZOFRAN) 4 MG tabletIndication s:Class 1 obesity due to excess calories with serious comorbidity and body mass index (BMI) of 32.0 to 32.9 in adult Take 2 tablets (8 mg total) by mouth every 8 (eight) hours as needed. 90 tablet 02/28/20 Active sertraline (ZOLOFT) 25 MG tabletIndication s:JAKOB (generalized anxiety disorder) TAKE 1 TABLET(25 MG) BY MOUTH DAILY 90 tablet 3 04/22/20 25 Active sertraline (ZOLOFT) 25 MG tabletIndication s:JAKOB (generalized anxiety disorder) TAKE 1 TABLET(25 MG) BY MOUTH DAILY 90 tablet 3 07/19/19 25 025 Discontinued metoprolol succinate ER (TOPROL-XL) 50 MG 24 hr tablet Take 1 tablet (50 mg total) by mouth nightly. NEW DOSE 03/21/25 90 tablet 1 03/21/20 25 025 Discontinued(St op Taking at Discharge) verapamil ER (VERELAN PM) 180 MG 24 hr capsule Take 1 capsule (180 mg total) by mouth nightly at bedtime. 30 capsule 3 04/10/20 25 025 Discontinued propranolol (INDERAL) 20 MG tablet Take 1 tablet (20 mg total) by mouth 2 (two) times daily. Can take an extra dose midday if not feeling well 90 tablet 3 04/21/20 25 025 Discontinued(St op Taking at Discharge) Active Problems Problem Noted Date Diagnosed Date Multinodular goiter 06/04/2023 Thyroid nodule 06/04/2023 Cysts of both ovaries 07/31/2021 Dysmenorrhea 07/17/2021 JAKOB (generalized anxiety disorder) 01/15/2021 Palpitations 03/18/2017 Resolved Problems Problem Noted Date Diagnosed Date Resolved Date Chest pressure 03/18/2017 12/26/2020 Encounters Date Type Department Care Team Description 05/05/2025 MyChart Message Enc [facility], [place] [address] [place] [address] Chanel Morris MD Post Ablation Heart rhythm 05/05/[address] [facility] - [place] [address] [facility] [address] [place] [address] Gino Slaughter MD Wegovy Question 05/04/2025 Telephone [facility] [address] [address] Jeanne Willingham PA Concerns 05/03/2025 12:52 PM DIANETIC COUNSELOR Anesthesia Event [facility] [place] [address] Omar Turcios MD 05/03/2025 8:57 AM DIANETIC COUNSELOR - 05/03/2025 5:25 PM DIANETIC COUNSELOR Hospital Encounter [facility] [place] [address] Chanel Morris MD Ruiz, Eloy A, MD Arrived Discharge Disposition: Home or Self Care (Routine Discharge) 05/03/2025 8:56 AM DIANETIC COUNSELOR Hospital Encounter [facility] [place] [address] Chanel Morris MD Arrived Discharge Disposition: Home or Self Care (Routine Discharge) 05/03/2025 Results Follow-Up [facility] [address] [address] Mariia Ellis RN BASIC METABOLIC PANEL, CBC W/DIFF, PROTIME/INR, VENOUS, TYPE & SCREEN 05/03/2025 Travel 05/02/2025 Orders Only [facility] [place] [address] Chanel Morris MD 04/30/2025 MyChart Message Enc [facility] [address] [address] Chanel Morris MD Question - Ablation Thursday04/24/2025 Orders Only [facility], [address] [address] Chanel Morris MD 04/17/2025 MyChart Message Enc [facility], [address] [address] Chanel Morris MD Verapamil 04/11/2025 Telephone [facility], [address] [address] Chanel Morris MD Schedule Procedure 04/11/2025 MyChart Message Enc [facility], [address] [address] Chanel Morris MD PVCs and VT 04/10/2025 7:29 AM DIANETIC COUNSELOR Anesthesia Event [facility] [place] [address] Ekaterina Salmeron MD 04/10/2025 6:23 AM DIANETIC COUNSELOR - 04/10/2025 11:45 AM DIANETIC COUNSELOR Hospital Encounter [facility] [place] [address] Chanel Morris MD Kodwani, Nand K, MD Ufert, Brandon M, CRNA Discharge Disposition: Home or Self Care (Routine Discharge) 04/10/2025 6:15 AM DIANETIC COUNSELOR - 04/10/2025 6:21 AM DIANETIC COUNSELOR Hospital Encounter [facility] [place] [address] Chanel Morris MD Discharge Disposition: Home or Self Care (Routine Discharge) 04/10/2025 Telephone [facility], [address] [address] Supriya Crandall CMA Medication Request (verapamil) 04/10/2025 Travel 03/30/2025 Results Follow-Up [facility], [place] [address] [place] [address] Mariia Ellis RN CBC W/DIFF AUTOMATED, PROTIME (OUTSIDE LAB), BASIC METABOLIC PANEL 03/29/2025 MyChart Message Enc [facility] [address] [place] [address] Chanel Morris MD Ablation Question 03/29/2025 Abstract [facility], [place] [address] [place] [address] Birdie Amato MA 03/27/2025 MyChart Message Enc [facility], [address] [place] [address] Chanel Morris MD Procedure 03/27/2025 Orders Only [facility], [address] [place] [address] Chanel Morris MD 03/22/2025 MyChart Message Enc [facility], [address] [address] Chanel Morris MD AFib - Apple Watch 03/22/2025 MyChart Message Enc [facility], [address] [place] [address] Chanel Morris MD Exercise / Heartrate 03/21/2025 11:00 AM DIANETIC COUNSELOR Office Visit [facility] [address] [place] [address] Chanel Morris MD Arrhythmia (Consult ) 03/21/2025 Travel 03/16/2025 Orders Only [facility], [address] [address] Angie Rico RN 03/10/2025 Orders Only [facility], [address] [address] Ruth Ruiz MD 03/09/2025 MyChart Message Enc [facility], [address] [address] Ruth Ruiz MD Monitor/Medication 03/09/2025 Results [facility] [address] [facility] [address] [place] [address] Gino Slaughter MD CBC W/DIFF AUTOMATED, COMPREHENSIVE METABOLIC PANEL, LIPID PANEL 03/01/2025 Scan [employer] INFO SRVCS Scanned, [facility] 03/01/2025 Orders Only [facility], [address] [address] Chanel Morris MD 02/27/2025 4:00 PM CDT [facility] - [address] [place] [address] Gino Slaughter MD Medication (Follow up for weight meds. /No questions or concerns today. /); Weight Problem 02/27/2025 Travel 02/24/2025 Results Follow-Up [facility], [address] [address] Angie Rico, RN USE ECHOCARDIOGRAM, CLINIC - OUTPATIENT EVENT RECORDER (ECG) UP TO 30 DAYS COMPLETE (Holter) 02/22/2025 1:51 PM CDT - 02/22/2025 11:59 PM CDT Hospital Encounter [facility] [place] [address] Ruth Ruiz MD Discharge Disposition: Home or Self Care (Routine Discharge) 02/22/2025 Travel 02/19/2025 Blue Calypsohart Message Enc [facility], [address] [address] Ruth Ruiz MD Holter monitor 02/15/2025 11:45 AM CDT Telephone [facility], [address] [address] Ruth Ruiz MD Holter Monitor; Referral (Consult Dr Morris) 02/10/2025 [place] [employer] Message Enc [facility], [address] [address] Ruth Ruiz MD Follow up from appointment 02/08/2025 12:30 PM CDT Office Visit [facility], [address] [address] Ruth Ruiz MD Chest Pain; Breathing Problem 02/08/2025 Travel from Last 3 Months Immunizations Immunization Administration Dates Next Due Fluzone Intradermal Quad (IIV4) 03/05/2016 Influenza (Generic) 02/16/2017,02/26/2015 Influenza Adult (Generic) 03/05/2022,,02/17/2019,2017 PFIZER COVID-19 (ORIGINAL FORMULATION, PURPLE CAP) mRNA, LNP-S, PF, 30 MCG/0.3 ML DOSE 03/22/2021 Tdap (Boostrix) 11/27/2015 Family History Medical History Relation Comments vertigo Brother Cancer Father Congenital heart disease Father hole in heart Stroke Father melanoma Father vertigo Father Diabetes Maternal Aunt Alzheimers Maternal Grandfather Stroke Maternal Grandfather Diabetes Maternal Grandmother Heart Attack Maternal Grandmother Heart Disease Maternal Grandmother Miscarriages / Stillbirths Maternal Grandmother Stent Cardiac Maternal Grandmother Stroke Maternal Grandmother Cancer Maternal Uncle vertigo Mother Hyperlipidemia Paternal Grandfather Hypertension Paternal Grandfather Vision loss Paternal Grandfather Arthritis Paternal Grandmother Congenital heart disease Son 1 enlarge d aorta, Atrial septal defect Epilepsy Son 1 Relation Status Comments Brother Alive Father Alive Maternal Aunt Alive Maternal Grandfather (Age 75) Maternal Grandmother (Age 102) Maternal Uncle (Age 76) Mother Alive Paternal Grandfather Alive Paternal Grandmother Alive Son 1 Alive Son 2 Alive Social History Tobacco Use Types Packs/Day Years Used Date Smoking Tobacco: Never Smokeless Tobacco: Never Tobacco Cessation:Counseling Given: Yes Comments:Counseled by Dr. Slaughter Alcohol Use Standard Drinks/Week Comments Not Currently 0 (1 standard drink = 0.6 oz pur e alcohol) Socially 2/ month PHQ-2 Answer Date Recorded Patient Health Questionnaire-2 Score 0 06/01/2024 Comments No Sex and Gender Information Value Date Recorded Sex Assigned at Female 07/01/2024 2:14 PM DIANETIC COUNSELOR Legal Sex Female 6:22 PM CDT Gender Identity Female 07/01/2024 2:24 PM DIANETIC COUNSELOR Sexual Orientation Straight 07/01/2024 2: 24 PM DIANETIC COUNSELOR Occupation Industry Job Start Date Job End Date [employer] at [employer] Not on file Not on file Not on file Last Filed Vital Signs Vital Sign Reading Time Taken Comments Blood Pressure 122/86 05/03/2025 5:00 PM DIANETIC COUNSELOR Pulse 66 05/03/2025 5:00 PM DIANETIC COUNSELOR Temperature 36.7 C (98 F) 05/03/2025 3:00 PM DIANETIC COUNSELOR Respiratory Rate 17 05/03/2025 5:00 PM DIANETIC COUNSELOR Oxygen Saturation 98% 05/03/2025 5:00 PM DIANETIC COUNSELOR Inhaled Oxygen Concentration - - Weight 93.3 kg (205 lb 11 oz) 05/03/2025 10:04 A M DIANETIC COUNSELOR Height 170.2 cm (5' 7) 05/03/2025 10:04 AM DIANETIC COUNSELOR Body Mass Index 32.22 05/03/2025 10:04 AM DIANETIC COUNSELOR Plan of Treatment Upcoming Encounters Date Type Department Care Team (Late st Contact Info) Description 05/15/2025 10:30 AM DIANETIC COUNSELOR Office Visit [facility], [address] [place] [address] Jennifer Eng APRN Three [facility]. [address] [place] [address] 05/30/2025 3:40 PM DIANETIC COUNSELOR Office Visit [facility] - [place] [address] [place] [address] [address] [place] [address] Gino Slaughter MD [address] [facility] [address] [place] [address] 06/02/2025 11:30 AM DIANETIC COUNSELOR [facility] [address] [place] [address] Britney Turner APRN 3 [facility], [facility] [address] [place] [address] Health Maintenance Due Date Last Done Comments Hepatitis B Vaccines (1 of 3 - 19+ 3-dose series) 2001 HPV Vaccines (1 - 3-dose SCDM series) 2009 COVID-19 Vaccine ( season) 2025 03/22/2021, 07/16/2020, 06/18/2020 Annual Physical 06/01/2025 06/01/2024, 05/18, 12/27/2021, Additional history exists Pneumococcal Vaccine: Pediatrics (0 to 5 Years) and At-Risk Patients (6 to 49 Years) (1 of 2 - PCV) 11/22/2025 Postponed from 2001 (Patient Refused) DTaP, Tdap and Td Vaccines (2 - Td or Tdap) 11/26/2025 11/27/2015 Mammogram Screening 12/05/2026 12/05/2024, Hepatitis C Completed 12/26/2020 PHQ-2 (Physician Kiana) Completed 06/01/2024 Influenza Adult Completed 02/23/2025, 100 05/2023, 03/05/2022, Additional history exists Hepatitis A Vaccines Aged Out No long er eligible based on patient's age to complete this topic Meningococcal B Vaccine Aged Out No l onger eligible based on patient's age to complete this topic Meningococcal Vaccine Aged Out No delilah payal eligible based on patient's age to complete this topic RSV Immunizations Under 20 Months Aged Out No longer eligible based on patient's age to complete this topic Procedures Procedure Name Priority Date/Time Associated Diagnosis Comments ECG 12-LEAD STAT 05/03/2025 2:42 PM DIANETIC COUNSELOR PVC's (premature ventricular contractions) HC AB SCREEN STAT 05/03/2025 9:02 AM DIANETIC COUNSELOR PVC's (premature ventricular contractions) Ventricular tachycardia (CMS/HCC HHS/HCC) PROTHROMBIN TIME, VENOUS STAT 025 9:02 AM DIANETIC COUNSELOR PVC's (premature ventricular contractions) Ventricular tachycardia (CMS/HCC HHS/HCC) HC CBC AUTO W/AUTO DIFF STAT 05/03/20 25 9:02 AM DIANETIC COUNSELOR PVC's (premature ventricular contractions) Ventricular tachycardia (CMS/HCC HHS/HCC) BASIC METABOLIC PANEL STAT 05/03/2025 9:02 AM DIANETIC COUNSELOR PVC's (premature ventricular contractions) Ventricular tachycardia (CMS/HCC HHS/HCC) XA VT ABLATION Routine 04/10/2025 8:57 AM DIANETIC COUNSELOR Ventricular tachycardia (CMS/HCC HHS/HCC) HC AB SCREEN STAT 04/10/2025 6:28 AM DIANETIC COUNSELOR Ventricular tachycardia (CMS/HCC HHS/HCC) BASIC METABOLIC PANEL Routine 03/28/2025 PROTIME (OUTSIDE LAB) Routine 03/28/2025 CBC W/DIFF AUTOMATED Routine 03/28/2025 EVENT RECORDER (ECG) UP TO 30 DAYS COMPLETE Routine 03/24/2025 2:14 PM DIANETIC COUNSELOR PVC (premature ventricular contraction) Dizziness Palpitation LIPID PANEL Routine 03/08/2025 7:44 AM CDT Class 1 obesity due to excess calories with serious comorbidity and body mass index (BMI) of 32.0 to 32.9 in adult Drug therapy COMPREHENSIVE METABOLIC PANEL Routine 03/08/2025 7:44 AM CDT Class 1 obesity due to excess calories with serious comorbidity and body mass index (BMI) of 32.0 to 32.9 in adult Drug therapy CBC W/DIFF AUTOMATED Routine 03/08/2025 7:44 AM CDT Class 1 obesity due to excess calories with serious comorbidity and body mass index (BMI) of 32.0 to 32.9 in adult Drug therapy USE ECHOCARDIOGRAM Routine 02/22/2025 3: 58 PM CDT PVC (premature ventricular contraction) Dizziness Palpitation ELECTROCARDIOGRAM (NON MIDMARK ACQUIRED) Routine 02/08/2025 12:30 PM CDT Precordial pain HEPATITIS C ANTIBODY W/RFX TO HCV RNA Routine 12/26/2020 10:38 AM CDT Annual physical exam Encounter to establish care Encounter for general health examination Encounter for hepatitis C screening test for low risk patient from Last 3 Months or Most Recently Relevant to Health Maintenance Results * ECG 12 lead (05/03/2025 2:42 PM DIANETIC COUNSELOR) ECG QT [address] [facility] QTC [address] [facility] 05/03/2025 2:42 PM DIANETIC COUNSELOR Narrative [facility] - 05/03/2025 9:21 PM DIANETIC COUNSELOR [facility] [address] [facility] Test Date: 2025-05-03 Pat Name: ARASELI BRANDON Department: 40 Room: 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1980 Requested By: CHANEL MORRIS Order Number: [id number] Reading MD: Manolo Zambrano Measurements Intervals [place] Rate: 69 P: 54 WV: 166 QRS: 78 QRSD: 94 T: 2 QT: 428 QTc: 460 Interpretive Statements SINUS RHYTHM Compared to ECG 02/08/2025 12:30:22 No significant changes ETIC COUNSELOR us Chanel Morris MD ECG ORDERABLES Final Resul t Performing Organization Address City/[facility] Co de Phone Number [facility]) RAD * PROTIME/INR, VENOUS (05/03/2025 9:02 AM DIANETIC COUNSELOR) PROTIME 10.4 10.2 - 12.9 SEC 05/03/2025 10:12 AM DIANETIC COUNSELOR [facility] INR 0.9 05/03/2025 10:12 AM DIANETIC COUNSELOR [facility] Comment: Recommended INR Therapeutic Goals: 2.0-3.0 Routine Therapy 2.5-3.5 Mechanical Prosthetic Valves (High Risk) BLOOD VENOUS BLOOD SPECIMEN / Unknown 05/03/2025 9:02 AM DIANETIC COUNSELOR us Chanel Morris MD LABORATORY Final Resul t [facility] [address] [place] [address], [place] [phone] * CBC W/DIFF (05/03/2025 9:02 AM DIANETIC COUNSELOR) [facility] Signature WBC 6.61 4.5 - 11.0 x10'3/uL 05/03/2025 9:15 AM [facility] RBC 4.87 4.20 - 5.40 x10'6/uL 05/03/2025 9:15 AM [facility] HGB 14.3 12.0 - 16.0 G/DL 05/03/2025 9:15 AM [facility] HCT 43.3 38.0 - 48.0 % 05/03/2025 9:15 AM [facility] MCV 88.9 81.0 - 99.0 FL 05/03/2025 9:15 AM [facility] MCH 29.4 27.0 - 31.0 PG 05/03/2025 9:15 AM [facility] MCHC 33.0 32.0 - 36.0 G/DL 05/03/2025 9:15 AM [facility] RDW 13.2 11.5 - 14.5 % 05/03/2025 9:15 AM [facility] PLT 271 130 - 400 x10'3/uL 05/03/2025 9:15 AM [facility] MPV 10.4 9.3 - 12.2 FL 05/03/2025 9:15 AM [facility] DIFFERENTIAL TYPE AUTOMATED DIFFERENTIAL 05/03/2025 9:15 AM [facility] NEUTROPHILS % 62.4 % 05/03/2025 9:15 AM [facility] LYMPHOCYTES % 28.3 % 05/03/2025 9:15 AM DIANETIC COUNSELOR [facility] MONOCYTES % 7.4 % 05/03/2025 9:15 AM DIANETIC COUNSELOR [facility] EOSINOPHILS 1.2 % 05/03/2025 9:15 AM [facility] BASOPHILS 0.5 % 05/03/2025 9:15 AM DIANETIC COUNSELOR [facility] IMMATURE GRANS % 0.2 % 05/03/20 9:15 AM DIANETIC COUNSELOR [facility] ABS. NEUTROPHILS 4.13 1.80 - 7.70 x10'3/uL 05/03/2025 9:15 AM DIANETIC COUNSELOR [facility] ABS. LYMPHOCYTES 1.87 1.00 - 4.80 x10'3/uL 05/03/2025 9:15 AM [facility] ABS. MONOCYTES 0.49 0.24 - 0.86 x10'3/uL 05/03/2025 9:15 AM DIANETIC COUNSELOR [facility] ABS. EOSINOPHILS 0.08 0.04 - 0.36 x10'3/uL 05/03/2025 9:15 AM DIANETIC COUNSELOR [facility] ABS. BASOPHILS 0.03 0.01 - 0.08 x10'3/uL 05/03/2025 9:15 AM [facility] ABS. IMMATURE GRANULOCYTES 0.01 0.00 - 0.49 x10'3/uL 05/03/2025 9:15 AM [facility] BLOOD VENOUS BLOOD SPECIMEN / Unknown 05/03/2025 9:02 AM DIANETIC COUNSELOR us Chanel Morris MD LABORATORY Final Resul t [facility] [address] [place] [address], * (ABNORMAL) BASIC METABOLIC PANEL (05/03/2025 9:02 AM [facility]) [facility] GLUCOSE 104(H) 70 - 99 MG/DL 05/03/2025 9:34 AM [facility] BUN 15 7 - 18 MG/DL 05/03/2025 9:34 AM [facility] CREATININE S/P/B 0.92 0.55 - 1.02 MG/DL 05/03/2025 9:34 AM [facility] SODIUM S/P/B 140 136 - 145 MMOL/L 05/03/2025 9:34 AM [facility] POTASSIUM S/P/B 4.1 3.5 - 5.1 MMOL/L 05/03/2025 9:34 AM [facility] CHLORIDE S/P/B 111 97 - 115 MMOL/L 05/03/2025 9:34 AM [facility] CO2 25.6 21 - 32 MMOL/L 05/03/2025 9:34 AM [facility] CALCIUM S/P/B 9.0 8.5 - 10.1 MG/DL 05/03/2025 9:34 AM [facility] ANION GAP 3.4 2 - 10 MMOL/L 05/03/2025 9:34 AM [facility] BUN CREATININE RATIO 16.3 6 - 26 05/03/2025 9:34 AM [facility] GFR ESTIMATE 80(L) >90 ML/MIN/1.7 3 M2 05/03/2025 9:34 AM [facility] Comment: NOTE: eGFR is not calculated for patients <18 years of age or gender unknown. This is an estimated GFR calculation using the new CKD EPI creatinine equation without race and so does not require a correction factor for race. This estimated GFR should not be used for calculating drug doses. BLOOD VENOUS BLOOD SPECIMEN / Unknown 05/03/2025 9:02 AM DIANETIC COUNSELOR Chanel Morris MD LABORATORY Final Resul t [facility] [address] [place] [id number], * TYPE & SCREEN (05/03/2025 9:02 AM DIANETIC COUNSELOR) Only the most recent of2 resultswithin the time period is included. ABO/RH O POSITIVE 05/03/2025 10:01 AM DIANETIC COUNSELOR [facility] ANTIBODY SCREEN NEGATIVE 05/03/2025 10:01 AM DIANETIC COUNSELOR [facility] SAMPLE EXPIRATION 05/06/2025,2 359 05/03/2025 10:01 AM DIANETIC COUNSELOR [facility] BLOOD VENOUS BLOOD SPECIMEN / Unknown 05/03/2025 9:02 AM DIANETIC COUNSELOR Chanel Morris MD BLOOD BANK TEST ORDERABLES Final Result [facility] [address] [place] [id number], [place] [phone] * XA VT ABLATION (04/10/2025 8:57 AM DIANETIC COUNSELOR) Anatomical Region Laterality Modality Cardiac Ethnology Professor Narrative 04/29/2025 8:59 AM DIANETIC COUNSELOR [facility] Cardiac Catheterization/EP Lab [phone] PVC/VT Ablation Patient's Name: Araseli Brandon Date of : 1980 Medical Record: #[id number] Account: #[id number] Physician: Chanel Morris MD Date: 04/10/2025 Procedure: #[id number] History: 44-year-old female with symptomatic ventricular ectopy and nonsustained VT here for PVC/NSVT ablation. The patient was brought to the lab in the fasting state. Consent was obtained prior to coming into the lab. Anesthesia provided sedation services and provided their own consent. No anesthesia was given given lack of PVCs. The patient was draped and prepped in the usual standard fashion. Access/Catheters: Following access was achieved using ultrasound guidance: 7F LFV. Vein was accessed with ultrasound and noted to be patent. Image was saved and archived. The patient presented and was immediately started on isoproterenol given lack of observable ventricular ectopy. The isoprel infusion was gradually titrated up to 20 mcg, during washout PVC's were not observed over a prolonged monitoring period. Vascular access was then obtained using ultrasound guidance and a deflectable quadripolar catheter was positioned at the RV septum. On isoprel the ventricular stimulation protocol at [address] cycle testing up to triple extra stimuli to end refractoriness of the RV apex and RVOT did not induce any clinical ectopy. At this point the procedure was completed due to lack of inducible ventricular ectopy for mapping and ablation. Case end: The 7F LFV was Vascaded. Conclusion: The clinical premature ventricular ectopic complexes were not inducible with Isoprel or RV pacing. Recommendations: 2 hour bed rest. Continue home medications. Pulse checks tonight. Chanel Morris MD MH/vs Interpreted: 04/10/25 Transcribed: 04/11/25 Chanel Morris MD SLOTTER OPERATOR HELPER Final Resul t * PROTIME (OUTSIDE LAB) (03/28/2025) PROTIME 9.9 9.0 - 11.5 INR 0.9 03/28/2025 us Default History Genericprovider LAB-OUTSIDE/ABST RACTED Final Result * BASIC METABOLIC PANEL (03/28/2025) SODIUM S/P/B 140 135 - 146 POTASSIUM S/P/B 3.9 3.5 - 5.3 CO2 26 20 - 32 CHLORIDE S/P/B 106 98 - 110 GLUCOSE 90 65 - 139 mg/dL CALCIUM S/P/B 8.9 8.6 - 10.2 BUN 24 7 - 25 CREATININE S/P/B 0.91 0.50 - 0.99 GFR ESTIMATE 81 03/28/2025 us Default History Genericprovider LABORATORY Final Result * CBC W/DIFF AUTOMATED (03/28/2025) Only the most recent of2 resultswithin the time period is included. WBC 6.9 3.8 - 10.8 RBC 4.64 [...] Default History Genericprovider LABORATORY Final Result * CLINIC - OUTPATIENT EVENT RECORDER (ECG) UP TO 30 DAYS COMPLETE (Holter) (03/24/2025 2:14 PM DIANETIC COUNSELOR) H[facility] MORENO [facility] - 03/24/2025 2:14 PM DIANETIC COUNSELOR [image] [place], [place] [address] PRINCIPAL LIBRARIAN REPORT PATIENT NAME: Araseli Brandon : 1980 DATE OF TESTIN02/17/2025 until 03/20/2025 TYPE OF MONITOR: 32 day Event Monitor PCP: GINO SLAUGHTER MD INTERPRETING TOOL SALVAGE WORKER: RUTH RUIZ M.D. INDICATION: VPCs FINDINGS: Araseli Brandon underwent monitoring for a total of 32 days, of which 30 days, 12 hours and 42 minutes or 97% was considered diagnostic. Baseline rhythm: The baseline rhythm was normal sinus rhythm with heart rates ranging between 50 and 186 beats per minute, with average rate of 75 beats per minute. <1 % of the time was spent in bradycardia. 6% of the time was spent in tachycardia. Sinus node function: Sinus node function was normal with no evidence of severe bradycardia or pauses longer than 3 seconds. A-V conduction: A-V conduction was normal with no evidence of significant A-V block. Atrial arrhythmias: There were rare PACs, a total of 8935 PACs over 32 days, which accounted for less than 1% of total heartbeats. 1 episodes of supraventricular tachycardia with the longest lasting 4.3 seconds at a rate of 184 bpm. Atrial fibrillation was not observed. Atrial flutter was not observed. Ventricular arrhythmias: There were frequent PVCs, a total of 127,514 PVCs over 32 days which accounted for 4% of total heart beats. 6 episodes of ventricular tachycardia lasting up to 10.1 seconds at a rate of 210 bpm were observed. Symptoms: The patient reported symptoms of palpitations, feeling faint, shortness of breath, other symptoms. She had 1223 manual transmissions showing sinus rhythm between 63 and 128 bpm often with VPCs, ventricular bigeminy, ventricular couplets and triplets were seen. Several occasions were associated with runs of ventricular tachycardia. SUMMARY: Sinus rhythm at an average of 75 bpm was noted. Rare PACs with a <1 % burden seen. 1 episode of SVT lasting 4.3 seconds seen. Frequent PVCs with a 4% burden noted. 6 episodes of ventricular tachycardia lasting up to 10.1 seconds seen. Multiple symptoms were recorded. She had 1223 manual transmissions showing sinus rhythm between 63 and 128 bpm often with VPCs, ventricular bigeminy, ventricular couplets and triplets. Several occasions were associated with runs of ventricular tachycardia. us Ruth Ruiz MD CV VASCULAR ORDERABLES Final Re sult [facility] * (ABNORMAL) COMPREHENSIVE METABOLIC PANEL (03/08/2025 7:44 AM CDT) [facility] GLUCOSE 87 65 - 99 mg/dL [employer] [facility] Comment: Fasting reference interval BUN 18 7 - 25 mg/dL [facility] CREATININE S/P/B 1.00(H) 0.50 - 0.99 mg/dL [facility] [employer] [facility] GFR ESTIMATE 72 > OR = 60 mL/min/1. 73m2 [facility] BUN CREATININE RATIO 18 6 - 22 (calc) [employer] [facility] SODIUM S/P/B 138 135 - 146 mmol/L [facility] [employer] [facility] POTASSIUM S/P/B 4.3 3.5 - 5.3 mmol/L [employer] [facility] CHLORIDE S/P/B 104 98 - 110 mmol/L [facility] CO2 27 20 - 32 mmol/L [facility] [employer] [facility] CALCIUM S/P/B 9.1 8.6 - 10.2 mg/dL [facility] [employer] [facility] TOTAL PROTEIN S/P/B 7.0 6.1 - 8.1 g/dL [facility] ALBUMIN S/P/B 4.1 3.6 - 5.1 g/dL [facility] [employer] [facility] GLOBULIN 2.9 1.9 - 3.7 g/dL (calc) [employer] [facility] ALBUMIN/GLOBULIN RATIO 1.4 1.0 - 2.5 (calc) [employer] [facility] BILIRUBIN TOTAL S/P/B 0.5 0.2 - 1.2 mg/dL [facility] Moped [facility] ALKALINE PHOSPHATASE S/P/B 58 31 - 125 U/L [facility] AST 19 10 - 30 U/L [facility] ALT 18 6 - 29 U/L [employer] [facility] 03/08/2025 7:44 AM CDT 03/08/2025 7:45 AM CDT Narrative [employer] - [facility] - 03/09/2025 8:00 AM CDT FASTING:YES FASTING: YES Resulting Agency Comment Performing Organization Information: Site ID: [place] Name: [facility] [employer] Address: [address] [place] [address] Director: Chuck Mirza MD us Gino Slaughter MD LABORATORY Final Result [facility] DIAGNOSTICS - [facility] CHRISSY [facility] [address] [place] [address], * (ABNORMAL) LIPID PANEL (03/08/2025 7:44 AM CDT) CHOLESTEROL 230(H) <200 mg/dL [employer] [facility] HDL 78 > OR = 50 mg/dL [employer] [facility] TRIGLYCERIDES 111 <150 mg/dL [employer] [facility] LDL (CALCULATED) 130(H) mg/dL (calc) [facility] Comment: Reference range: <100 Desirable range <100 mg/dL for primary prevention; <70 mg/dL for patients with CHD or diabetic patients with > or = 2 CHD risk factors. LDL-C is now calculated using the Mirza calculation, which is a validated novel method providing better accuracy than the Friedewald equation in the estimation of LDL-C. Bereket SS et al. TEENA. 2013;310(19): 1065-7187 (http://education.Fielding Systems/faq/VGO219) CHOL/HDL RATIO 2.9 <5.0 (calc) [facility] NON HDL CHOLESTEROL 152(H) <130 mg/dL (calc) [facility] Comment: For patients with diabetes plus 1 major ASCVD risk factor, treating to a non-HDL-C goal of <100 mg/dL (LDL-C of <70 mg/dL) is considered a therapeutic option. 03/08/2025 7:44 AM CDT 03/08/2025 7:45 AM CDT Narrative EUGENIE LOWE - 03/09/2025 8:00 AM CDT FASTING:YES FASTING: YES Resulting Agency Comment Performing Organization Information: Site ID: [place] Name: [facility] Address: [address] [address] Director: Chuck Mirza MD us Gino Slaughter MD LABORATORY Final Result EUGENIE LOWE [facility] [address] [place] [address], * USE ECHOCARDIOGRAM (02/22/2025 3:58 PM CDT) Anatomical Region Laterality Modality Cardiac Echocardiogram 02/22/2025 2:09 PM CDT Narrative 02/23/2025 8:01 AM CDT Echocardiography Report Pat.Name: ARASELI BRANDON Pat.ID: [id number] .Date: 02/22/2025 Refer.: [id number] SARA Sarkar Exam Time: 2:09:00 PM Study Type:ECHO WITH CARDIAC DOPPLER COMP Height: 67 in Weight: 200 lb BSA: 2.02 m2 Age: 5 1980,44Y Sex: F BP: 114/63 HR: 85 bpm Sonogrphr: Cathy Cantrell Pat. Stat.:Outpatient Reason for Study:Palpitations, PVC's, Dizziness Procedures: 2D, M-mode, Doppler, Color Flow, The study quality is technically adequate. Race: W ++++++++++++++++++++++++++++++++++++ SUMMARY: ++++++++++++++++++++++++++++++++++++ The left ventricular systolic function is normal. Estimated left ventricular ejection fraction is 65-70%. Left ventricular diastolic function is normal. Wall motion appears normal in all segments. Mild pulmonic regurgitation. Compared to the previous study the ejection fraction remains preserved. ++++++++++++++++++++++++++++++++++++ FINDINGS: ++++++++++++++++++++++++++++++++++++ LV: The left ventricular size is normal. The left ventricular systolic function is normal. Estimated left ventricular ejection fraction is 65-70%. There is no left ventricular hypertrophy. Left ventricular diastolic function is normal. The LV Strain is -26%, normal. WM: Wall motion appears normal in all segments. RV: The right ventricular size is mildly enlarged. Right ventricular systolic function is normal. IVS: No evidence of ventricular septal defect. LA: The left atrial volume is normal ( less than 34 ml/M2). RA: Right atrial size is normal. IAS: Atrial septum appears intact. CLAUDINE: No evidence of pericardial effusion. AO: Normal aortic root. PA: Estimated right atrial pressure of 3 mmHg. Unable to reliably quantitate pulmonary systolic pressure. SVn: Inferior vena cava is normal. Inferior vena cava shows >50% collapse with respiration consistent with normal right atrial pressure. Other: Compared to the previous study the ejection fraction remains preserved. AV: The aortic valve is trileaflet. No evidence of aortic valve stenosis. Trace aortic regurgitation. MV: Structurally normal mitral valve. Trace mitral regurgitation. No evidence of mitral valve stenosis. PV: No evidence of pulmonic valve stenosis. Mild pulmonic regurgitation. TV: Structurally normal tricuspid valve. A trace of tricuspid regurgitation. No evidence of tricuspid valve stenosis. ++++++++++++++++++++++++++++++++++++ MEASUREMENTS: ++++++++++++++++++++++++++++++++++++ 2D Left Ventricle LVIDd 4.66 cm (3.6-5.2) LVEDV BP 123 ml LV EDV 111 ml LVESV BP 39.2 ml LV ESV 40.5 ml LV EF 63.4 % LV EDV 128 ml Left Ventricula -19.3 % LV ESV 38 ml LV EF 70.4 % LV EF BP 68.2 % Left Ventricula -26.7 % Left Ventricula -23 % Aortic Valve Aortic Root Krissy 3.44 cm Left Atrium Left Atrium Vol 25.8 ml/m2 LA Biplane Left Atrium Vol 52.1 ml LA Single Plane Left Atrium sissy 4.78 cm Left Atrium sissy 4.77 cm Left Atrium Vol 59.8 ml Left Atrium Vol 45.3 ml LV Teichholz Interventricula 0.86 cm Left Ventricle 2.87 cm Left Ventricle 0.98 cm Heart rate 59 Heart beat per minute Right Atrium RA sys Area 14.8 cm2 Right Ventricle Right Ventricul 3.23 cm RVIDd 4.95 cm RV Teichholz Right Ventricul 3.67 cm MMODE Tricuspid Valve Tricuspid annul 2.74 cm DOPPLER PV Regurg Flow PV pkVel 85 cm/s Aortic Valve Cardiovascular 2.3 cm LVOT/AoV (POLICY SERVICE COORDINATOR) ( 0.87 AV Antegrade Flow Peak Velocity ( 0.89 m/s Mean Velocity ( 0.6 m/s Velocity Time I 19.8 cm AV Antegrade Flow Simplified Bernoulli Gradient pressu 3.1 mmHg Gradient pressu 1.6 mmHg AV Continuity Equation by Velocity Time Integral Aortic Valve Ar 3.68 cm2 AoV Area Index 1.82 Left Ventricle Stroke Volume ( 73 ml Cardiac Output 4.6 liter per minute LV Antegrade Flow Peak Velocity ( 0.77 m/s Mean Velocity ( 0.55 m/s Velocity Time I 17.6 cm LV Antegrade Flow Simplified Bernoulli Gradient pressu 2.3 mmHg Gradient pressu 1.3 mmHg Mitral Valve Mitral Valve E- 0.213 second Mean Myocardial 11.2 centimeter/second Myocardial Velo 13.2 centimeter/second Ratio of Mitral 6.73 Myocardial Velo 9.1 centimeter/second Ratio of Mitral 5.71 Isovelocity rel 0.094 second Ratio of Mitral 8.29 Mitral Valve E 1.12 MV Antegrade Flow Mitral Valve E- 0.75 m/s Mitral Valve A- 0.107 second Mitral Valve A- 0.68 m/s PV Antegrade Flow PV Vmax (Diasto 0.66 m/s PV Antegrade Flow Simplified Bernoulli PV PGmax (Systo 1.7 mmHg PV Regurgitant Flow Pressure gradie 3 mmHg Tricuspid Valve Tricuspid Valve 0.37 m/s <Electronic Signature> 02/23/2025 08:01 AM Ruth Ruiz M.D. Procedure Note Ruth Ruiz MD - 02/23/2025 Echocardiography Report Pat.Name: ARASELI BRANDON Pat.ID: [id number] .Date: 02/22/2025 Refer.: [id number] SARA Sarkar Exam Time: 2:09:00 PM Study Type:ECHO WITH CARDIAC DOPPLER COMP Height: 67 in Weight: 200 lb BSA: 2.02 m2 Age: 5 1980,44Y Sex: F BP: 114/63 HR: 85 bpm Sonogrphr: Cathy Cantrell Pat. Stat.:Outpatient Reason for Study:Palpitations, PVC's, Dizziness Procedures: 2D, M-mode, Doppler, Color Flow, The study quality is technically adequate. Race: W ++++++++++++++++++++++++++++++++++++ SUMMARY: ++++++++++++++++++++++++++++++++++++ The left ventricular systolic function is normal. Estimated left ventricular ejection fraction is 65-70%. Left ventricular diastolic function is normal. Wall motion appears normal in all segments. Mild pulmonic regurgitation. Compared to the previous study the ejection fraction remains preserved. ++++++++++++++++++++++++++++++++++++ FINDINGS: ++++++++++++++++++++++++++++++++++++ LV: The left ventricular size is normal. The left ventricular systolic function is normal. Estimated left ventricular ejection fraction is 65-70%. There is no left ventricular hypertrophy. Left ventricular diastolic function is normal. The LV Strain is -26%, normal. WM: Wall motion appears normal in all segments. RV: The right ventricular size is mildly enlarged. Right ventricular systolic function is normal. IVS: No evidence of ventricular septal defect. LA: The left atrial volume is normal ( less than 34 ml/M2). RA: Right atrial size is normal. IAS: Atrial septum appears intact. CLAUDINE: No evidence of pericardial effusion. AO: Normal aortic root. PA: Estimated right atrial pressure of 3 mmHg. Unable to reliably quantitate pulmonary systolic pressure. SVn: Inferior vena cava is normal. Inferior vena cava shows >50% collapse with respiration consistent with normal right atrial pressure. Other: Compared to the previous study the ejection fraction remains preserved. AV: The aortic valve is trileaflet. No evidence of aortic valve stenosis. Trace aortic regurgitation. MV: Structurally normal mitral valve. Trace mitral regurgitation. No evidence of mitral valve stenosis. PV: No evidence of pulmonic valve stenosis. Mild pulmonic regurgitation. TV: Structurally normal tricuspid valve. A trace of tricuspid regurgitation. No evidence of tricuspid valve stenosis. ++++++++++++++++++++++++++++++++++++ MEASUREMENTS: ++++++++++++++++++++++++++++++++++++ 2D Left Ventricle LVIDd 4.66 cm (3.6-5.2) LVEDV BP 123 ml LV EDV 111 ml LVESV BP 39.2 ml LV ESV 40.5 ml LV EF 63.4 % LV EDV 128 ml Left Ventricula -19.3 % LV ESV 38 ml LV EF 70.4 % LV EF BP 68.2 % Left Ventricula -26.7 % Left Ventricula -23 % Aortic Valve Aortic Root Krissy 3.44 cm Left Atrium Left Atrium Vol 25.8 ml/m2 LA Biplane Left Atrium Vol 52.1 ml LA Single Plane Left Atrium sissy 4.78 cm Left Atrium sissy 4.77 cm Left Atrium Vol 59.8 ml Left Atrium Vol 45.3 ml LV Teichholz Interventricula 0.86 cm Left Ventricle 2.87 cm Left Ventricle 0.98 cm Heart rate 59 Heart beat per minute Right Atrium RA sys Area 14.8 cm2 Right Ventricle Right Ventricul 3.23 cm RVIDd 4.95 cm RV Teichholz Right Ventricul 3.67 cm MMODE Tricuspid Valve Tricuspid annul 2.74 cm DOPPLER PV Regurg Flow PV pkVel 85 cm/s Aortic Valve Cardiovascular 2.3 cm LVOT/AoV (POLICY SERVICE COORDINATOR) ( 0.87 AV Antegrade Flow Peak Velocity ( 0.89 m/s Mean Velocity ( 0.6 m/s Velocity Time I 19.8 cm AV Antegrade Flow Simplified Bernoulli Gradient pressu 3.1 mmHg Gradient pressu 1.6 mmHg AV Continuity Equation by Velocity Time Integral Aortic Valve Ar 3.68 cm2 AoV Area Index 1.82 Left Ventricle Stroke Volume ( 73 ml Cardiac Output 4.6 liter per minute LV Antegrade Flow Peak Velocity ( 0.77 m/s Mean Velocity ( 0.55 m/s Velocity Time I 17.6 cm LV Antegrade Flow Simplified Bernoulli Gradient pressu 2.3 mmHg Gradient pressu 1.3 mmHg Mitral Valve Mitral Valve E- 0.213 second Mean Myocardial 11.2 centimeter/second Myocardial Velo 13.2 centimeter/second Ratio of Mitral 6.73 Myocardial Velo 9.1 centimeter/second Ratio of Mitral 5.71 Isovelocity rel 0.094 second Ratio of Mitral 8.29 Mitral Valve E 1.12 MV Antegrade Flow Mitral Valve E- 0.75 m/s Mitral Valve A- 0.107 second Mitral Valve A- 0.68 m/s PV Antegrade Flow PV Vmax (Diasto 0.66 m/s PV Antegrade Flow Simplified Bernoulli PV PGmax (Systo 1.7 mmHg PV Regurgitant Flow Pressure gradie 3 mmHg Tricuspid Valve Tricuspid Valve 0.37 m/s <Electronic Signature> 02/23/2025 08:01 AM Ruth Ruiz M.D. us Ruth Ruiz MD ECHO Final Result * ELECTROCARDIOGRAM (02/08/2025 12:30 PM CDT) 02/08/2025 12:3 0 PM CDT [facility] - 02/08/2025 12:[address] 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 There is no laboratory evidence of HCV infection. In most cases, no further action is required. However, if recent HCV exposure is suspected, a test for HCV RNA (test code 66730) is suggested. For additional information please refer to http://education.[employer]/faq/HQI30g6 (This link is being provided for informational/ educational purposes only.) 12/26/2020 10:3 8 AM CDT 12/27/2020 8:15 AM CDT Gino Slaughter MD LABORATORY Final Result [facility] [address] [place] [address] from Last 3 Months or Most Recently Relevant to Health Maintenance Insurance [facility] Advance Directives * Full Code (Latest Code Status on File) Date Activated Date Inactivated Comments 05/03/2025 4:34 PM 05/03/2025 7:30 PM * Full Code Date Activated Date Inactivated Comments 04/10/2025 11:51 AM 04/10/2025 2:03 PM Care Teams Chiropractic Care Relationship Specialty Start Date End Date Gino Slaughter MD [address] [facility] [address] [place] [address] PCP - General INTERNAL MEDICINE 12/26/20 Ruth Ruiz MD [address] CARDIOVASCULAR DISEASE 10/17/15 Chanel Morris MD [address] CLINICAL CARDIAC ELECTROPHYSIOLOGY 03/20/25
--- OUTSIDE RECORDS SUMMARY | 2025-05-06 16:49 | XMS_ITS | Encounter Summary ---
Author Organization [facility] Address [facility] [place] [address] Care Team Providers Care Customer Success Associate Name Role Phone Ruth Dhillon MD Unavailable [phone] Gino Slaughter MD Primary Care Provider [phone] Miguel Baires MD Unavailable [phone] Encounter Details Date Type Department Care Team (Latest Contact Info) Description 01/16/2025 [email or web address] Message Enc [facility] - [address] [address] [address] [place] [address] Gino Slaughter MD [address] [place] [address] [address] [place] [address] Running/wheezing Social History Tobacco Use Types Packs/Day Years [...] Sex Assigned at Female 07/01/2024 2:14 PM WELL TREATMENT OFFSIDER Legal Sex Female 6:22 PM CDT Gender Identity Female 07/01/2024 2:24 PM WELL TREATMENT OFFSIDER Sexual Orientation Straight 07/01/2024 2: 24 PM WELL TREATMENT OFFSIDER 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 [address] [place] [address] 05/30/2025 3:40 PM WELL TREATMENT OFFSIDER Office Visit [facility] - [place] [address] [address] [place], [place] [id number] Gino Slaughter MD [address] [place] [address] 06/02/2025 11:30 AM WELL TREATMENT OFFSIDER [facility] [address] [place] [address] Britney Turner, CAMPUS WELLNESS COORDINATOR [facility], [facility] [address] [place] [address] documented as of this encounter Visit Diagnoses Not on filedocumented in this encounter Additional Health Concerns Assessment Noted Time PHQ-9 Depression Total Score: 1 06/01/19 25 4:58 PM WELL TREATMENT OFFSIDER documented as of this encounter Care Teams Customer Success Associate Relationship Specialty [place] [address] [place] [address] [address] [place] [address] PCP - General INTERNAL MEDICINE 12/26/20 Ruth Dhillon MD [facility]. [address] [place] [address] [place] Cotton Dispatcher CARDIOVASCULAR DISEASE 10/17/15 Miguel Baires MD Three [facility]. [facility] [address] [place] [address] Toni Cotton Dispatcher CLINICAL CARDIAC ELECTROPHYSIOLOGY 03/20/25 documented as of this encounter
--- OUTSIDE RECORDS SUMMARY | 2025-05-06 16:49 | XMS_ITS | Encounter Summary ---
Author Organization [facility] - [facility] Address [facility] [place] [address] Care Team Providers Care Plumbing Service Technician Name Role Phone Ruth Dhillon MD Unavailable [phone] Gino Slaughter MD Primary Care Provider [phone] Miguel Baires MD Unavailable [phone] Encounter Details Date Type Department Care Team (Latest Contact Info) Description 08/25/2021 ShoutNowt Message Enc [facility] Medical Group Multispecialty Care - [place] [address] [address] [place] [address] Gino Slaughter MD [address] [facility] [address] [place] [address] Medication Recomendation Social History Tobacco Use Types Packs/Day Years Used Date Smoking Tobacco: Never Smokeless Tobacco: Never Comments:Consult by Dr. 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 [address] [place] [address] 05/30/2025 3:40 PM PREPARATION SUPERVISOR CANNING Office Visit [facility] Medical Group Multispecialty Care - [address] [address] [address] [place] [address] Gino Slaughter MD [address] [facility] [address] [place] [address] 06/02/2025 11:30 AM PREPARATION SUPERVISOR CANNING Office Visit [facility] THREE [facility], [address] [place] [address] Britney Turner, CORPORATE HEALTH CONSULTANT [address] [facility], [facility] [address] [place] [address] documented as of this encounter Visit Diagnoses Not on filedocumented in this encounter Additional Health Concerns Assessment Noted Time PHQ-9 Depression Total Score: 0 01/16/20 10:46 AM CDT documented as of this encounter Care Teams Plumbing Service Technician Relationship Specialty Start Date End Date Gino Slaughter MD [address] [facility] [address] [place] [address] PCP - General INTERNAL MEDICINE 12/26/20 Ruth Dhillon MD Three [facility]. [address] [place] [address] Toni Bonding Supervisor CARDIOVASCULAR DISEASE 10/17/15 Miguel Baires MD Three [facility]. [facility] [address] [place] [address] Toni Bonding Supervisor CLINICAL CARDIAC ELECTROPHYSIOLOGY 03/20/25 documented as of this encounter
--- OUTSIDE RECORDS SUMMARY | 2025-05-06 16:49 | XMS_ITS | Encounter Summary ---
Author Organization [facility] Address [facility] [place] [address] Care Team Providers Care Veterinary Epidemiologist Name Role Phone Ruth Dhillon MD Unavailable [phone] Gino Slaughter MD Primary Care Provider [phone] Miguel Baires MD Unavailable [phone] Encounter Details Date Type Department Care Team (Late st Contact Info) Description 03/29/2025 [employer] Message Enc [facility] [facility], [facility] [address] [place] [address] [facility]. 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 [address] [place] [address] 05/30/2025 3:40 PM DIGITAL COMMUNICATIONS MANAGER Office Visit [facility] Medical Group Multispecialty Care - [place] [address] [place] [address] [address] [place], [place] [id number] Gino Slaughter MD [address] [facility] [address] [place] [address] 06/02/2025 11:30 AM DIGITAL COMMUNICATIONS MANAGER [facility] [address] [place] [address] Britney Turner, GOLD MARKER 3 [facility], [facility] [address] [place] [address] documented as of this encounter Visit Diagnoses Not on filedocumented in this encounter Additional Health Concerns Assessment Noted Time PHQ-9 Depression Total Score: 1 06/01/19 25 4:58 PM DIGITAL COMMUNICATIONS MANAGER documented as of this encounter Care Teams Veterinary Epidemiologist Relationship Specialty Start Date End Date Gino Slaughter MD [address] [facility] [address] [place] [address] PCP - General INTERNAL MEDICINE 12/26/[address] [facility]. [address] [place] [address] [place] Junior Software Engineer CARDIOVASCULAR DISEASE 10/17/15 Miguel Baires MD Three [facility]. [facility] [address] [place] [address] [place] Junior Software Engineer CLINICAL CARDIAC ELECTROPHYSIOLOGY 03/20/25 documented as of this encounter
--- OUTSIDE RECORDS SUMMARY | 2025-05-06 16:49 | XMS_ITS | Encounter Summary ---
Author Organization [facility] Address [facility] [place] [address] Care Team Providers Care Chemical Equipment Repairer Name Role Phone Ruth Dhillon MD Unavailable [phone] Gino Slaughter MD Primary Care Provider [phone] Miguel Baires MD Unavailable [phone] Encounter Details Date Type Department Care Team (Late st Contact Info) Description 05/02/2025 Orders Only [facility] One Day Services [place], [place] [id number] Miguel Baires MD Three [facility]. 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 Not on file Not on file documented as of this encounter Functional Status * Calculated C-SSRS Risk Score (Lifetime/Recent) Answer Date of Assessment Author Status No Risk Indicated 05/03/2025 10:05 AM Ene Borden RN Active * [place] Suicide Severity Rating Scale (Screener/Recent Self-Report) Question [...] st Contact Info) Description 05/15/2025 10:30 AM DIRECTOR OF HOUSING AND ENERGY SERVICES Office Visit [place] [facility] THREE [facility], [address] [address] Jennifer Eng APRN Three [facility] [address] [place], [place] [address] 05/30/2025 3:40 PM DIRECTOR OF HOUSING AND ENERGY SERVICES Office Visit [facility] Medical Group Multispecialty Care - [address] [address] [address] [place] [address] Gino Slaughter MD [address] [place] [address] [address] [place] [address] 06/02/2025 11:30 AM DIRECTOR OF HOUSING AND ENERGY SERVICES [facility], [address] [id number] Britney Turner APRN 3 [facility], [facility] [address] [place], [place] [address] Scheduled Orders Name Type Priority Associated Diagnoses Orde r Schedule HCG QUANT (SERUM)-CHORIONIC GONADOTROPIN Lab Routine Palpitations 1 Occurrences starting 05/02/2025 until 05/02/2026 documented as of this encounter Visit Diagnoses Diagnosis Palpitations- Primary documented in this encounter Additional Health Concerns Assessment Noted Time PHQ-9 Depression Total Score: 1 06/01/19 25 4:58 PM DIRECTOR OF HOUSING AND ENERGY SERVICES documented as of this encounter Care Teams Chemical Equipment Repairer Relationship Specialty Start Date End Date Gino Slaughter MD [address] [facility] [address] [place] [address] PCP - General INTERNAL MEDICINE 12/26/20 Ruth Dhillon MD Three [facility]. [address] [address] Toni Playground Equipment Erector CARDIOVASCULAR DISEASE 10/17/15 Miguel Baires MD [facility]. [address] [address] Toni Playground Equipment Erector CLINICAL CARDIAC ELECTROPHYSIOLOGY 03/20/25 documented as of this encounter
--- OUTSIDE RECORDS SUMMARY | 2025-05-06 16:49 | XMS_ITS | Encounter Summary ---
Author Organization [facility] Address [facility] [place] [address] Care Team Providers Care Manufacturing Leader Name Role Phone Ruth Dhillon MD Unavailable [phone] Gino Slaughter MD Primary Care Provider [phone] Miguel Baires MD Unavailable [phone] Encounter Details Date Type Department Care Team (Latest Contact Info) Description 07/04/2024 Verutat Message Enc [facility] Medical Group Multispecialty Care - [place] [address] [address] [address] [place] [address] Gino Slaughter MD [address] [facility] [address] [place] [address] Surgical clearance Social History Tobacco Use Types Packs/Day Years [...] Sex Assigned at Female 07/01/2024 2:14 PM PARTITION MAKING MACHINE OPERATOR Legal Sex Female 6:22 PM CDT Gender Identity Female 07/01/2024 2:24 PM PARTITION MAKING MACHINE OPERATOR Sexual Orientation Straight 07/01/2024 2: 24 PM PARTITION MAKING MACHINE OPERATOR 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 [address] [place] [address] 05/30/2025 3:40 PM PARTITION MAKING MACHINE OPERATOR Office Visit [facility] Medical Group Multispecialty Care - [address] [address] [address] [place], [place] [address] Gino Slaughter MD [address] [place] [address] 06/02/2025 11:30 AM PARTITION MAKING MACHINE OPERATOR [facility] [facility], [facility] [address] [place] [address] Britney Turner, SQL SERVER DBA DEVELOPER 3 [facility], [facility] [address] [place] [address] documented as of this encounter Visit Diagnoses Not on filedocumented in this encounter Additional Health Concerns Assessment Noted Time PHQ-9 Depression Total Score: 1 06/01/19 25 4:58 PM PARTITION MAKING MACHINE OPERATOR documented as of this encounter Care Teams Manufacturing Leader Relationship Specialty [place] [address] [place] [address] [address] [place] [address] PCP - General INTERNAL MEDICINE 12/26/20 Ruth Dhillon MD [facility]. [address] [place] [address] [place] Invoice Coder CARDIOVASCULAR DISEASE 10/17/15 Miguel Baires MD Three [facility]. [facility] [address] [place], [place] [address] Toni Invoice Coder CLINICAL CARDIAC ELECTROPHYSIOLOGY 03/20/25 documented as of this encounter
--- OUTSIDE RECORDS SUMMARY | 2025-05-06 16:49 | XMS_ITS | Clinical Summary ---
Author Organization [facility] Address [address] [facility] [place] [address] Care Team Providers Care Nuclear Design Engineer Name Role Phone Gino Slaughter MD Primary Care Provider [phone] Source Comments [facility],non-owned Affiliates and Associated Physician Practices is amultiple site organization consisting of ambulatory clinics and hospital sitesin [place], [place], [place] and [place]. This disclosure is being madepursuant to the Care Everywhere program and may not contain all information available regarding this patient. Last updated 18.[facility] Allergies Active Allergy Reactions Criticality Noted Date Comments Shellfish Swelling Medium 07/29/2012 Lips, hands, face Shellfish-Derived Products Swelling 03/13/2021 Spinach Swelling,Unknown Medium 07/29/2012 Medications * Be aware that medications may not be up to date on this document. Always verify current medications with the patient. No known medications Active Problems No known active problems Family History Medical History Relation Name Comments CVA Father Relation Name Status Comments Father Alive Mother Alive Social History Tobacco Use Types Packs/Day Years Used Date Smoking Tobacco: Never Smokeless Tobacco: Never Tobacco Cessation:Counseling Given: Not Answered Alcohol Use Standard Drinks/Week Comments Not Currently 0 (1 standard drink = 0.6 oz pur e alcohol) Comments Unknown Sex and Gender Information Value Date Recorded Sex Assigned at Not on file Legal Sex Female 10:20 AM CDT Gender Identity Not on file Sexual Orientation Not on file Last Filed Vital Signs Vital Sign Reading Time Taken Comments Blood Pressure 120/82 03/19/2022 1:37 PM CDT Pulse - - Temperature - - Respiratory Rate - - Oxygen Saturation - - Inhaled Oxygen Concentration - - Weight 78.5 kg (173 lb) 03/19/2022 1:37 PM CDT Height 170.2 cm (5' 7) 03/19/2022 1:37 PM CDT Body Mass Index 27.1 03/19/2022 1:37 PM CDT Plan of Treatment Health Maintenance Due Date Last Done Comments HIV SCREENING 1997 HEPATITIS C SCREENING 09/25/2000 DTAP/TDAP/TD VACCINES (1 - Tdap) 2001 HEPATITIS B VACCINE (1 of 3 - 19+ 3-dose series) 2001 PAP SMEAR 10/01/2003 HPV VACCINE (1 - 3-dose SCDM series) 2009 DEPRESSION SCREENING 05/18/2024 COVID-19 VACCINE (2 - season) 2025 03/22/2021 INFLUENZA VACCINE (#1) 2025 , 03/05/2022, 02/28/2020, Additional history exists MAMMOGRAM 09/17/2025 09/18/2023, 09/18/2023 LIPID TESTING 12/27/2026 12/27/2021 ZOSTER VACCINE (1 of 2) 2032 HIB VACCINE Aged Out No longer eligi ble based on patient's age to complete this topic MENINGOCOCCAL (Group B) VACCINE SHARED DECISION-MAKING Aged Out No longer eligible based on patient's age to complete this topic MENINGOCOCCAL GROUPS A/C/Y/W VACCINE Aged Out No longer eligible based on patient's age to complete this topic PNEUMOCOCCAL VACCINE Aged Out No long er eligible based on patient's age to complete this topic Insurance AMINA Care Teams Nuclear Design Engineer Relationship Specialty Start Date End Date Gino Slaughter MD [address] [facility] [address] [place] [address] PCP - General 10/07/21
--- OUTSIDE RECORDS SUMMARY | 2025-05-06 16:49 | XMS_ITS | Encounter Summary ---
Author Organization [facility] Address [facility] [place] [address] Care Team Providers Care Firmware Test Engineer Name Role Phone Ruth Dhillon MD Unavailable [phone] Gino Slaughter MD Primary Care Provider [phone] Miguel Baires MD Unavailable [phone] Encounter Details Date Type Department Care Team (Late st Contact Info) Description 03/22/2025 [employer] Authoria Message Enc [facility] [address] [facility], [facility] [address] [place] [address] Miguel Baires MD [facility]. 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, [address] [place] [address] Jennifer Eng, TIMBER SURVEYOR Three [facility]. [address] [place] [address] 05/30/2025 3:40 PM INTERIOR DESIGN PRINCIPAL Office Visit [facility] Medical Group Multispecialty Care - [place] [address] [address] [address] [place], [place] [address] Gino Slaughter MD [address] [address] 06/02/2025 11:30 AM INTERIOR DESIGN PRINCIPAL Office Visit [facility] [facility] [address] [place] [address] Britney Turner, TIMBER SURVEYOR 3 [facility], [facility] [address] [place] [address] documented as of this encounter Visit Diagnoses Not on filedocumented in this encounter Additional Health Concerns Assessment Noted Time PHQ-9 Depression Total Score: 1 06/01/19 25 4:58 PM INTERIOR DESIGN PRINCIPAL documented as of this encounter Care Teams Firmware Test Engineer Relationship Specialty Start Date End Date Gino Slaughter MD [address] [facility] [address] [place], [place] [address] PCP - General INTERNAL MEDICINE 12/26/20 Ruth Dhillon MD Three [facility]. [address] [place] [address] Toni Precinct Commanding Officer CARDIOVASCULAR DISEASE 10/17/15 Miguel Baires MD Three [facility]. [facility] [address] [place] [address] Toni Precinct Commanding Officer CLINICAL CARDIAC ELECTROPHYSIOLOGY 03/20/25 documented as of this encounter
--- NOTE | 2025-05-06 16:51 | ECG_ITS ---
Test Date: 2025-05-06 16:56:19 Measurements Intervals [place]ber Rate: 73 P: 69 ME: 154 QRS: 85 QRSD: 86 T: 53 QT: 389 QTc: 431 Interpretive Statements SINUS RHYTHM CONSIDER RIGHT VENTRICULAR CONUDCTION DELAY DELAYED PRECORDIAL R/S TRANSITION BORDERLINE ECG No previous ECG available for comparison Electronically Signed On 05-06-2025 17:36:06 SUBJECT SCIENTIFIC RESEARCH by Olegario Rendon D.O.
[2025-05-06 17:03] VITALS: BP 148/86; PULSE 82; RESP 18; TEMP 36.6; O2SAT 99
--- NOTE | 2025-05-06 20:31 | ED.CHESTPAIN ---
HPI - Chest Pain General Chief Complaint: Chest Pain Stated Complaint: chest pain, feeling off, Time Seen by Provider: 05/06/25 20:30 History of Present Illness HPI narrative: 44-year-old female presents with chest pain. Patient states she had a recent ablation for episodes of ventricular tachycardia, she was walking and had some shortness of breath and chest pain that has now resolved. She says she feels in her usual state health and wants to go home. Review of Systems Constitutional: Constitutional: Reports fatigue ENT: Denies dizziness Cardiovascular: Cardiovascular: Reports chest pain Respiratory: Respiratory: Reports dyspnea Gastrointestinal: Gastrointestinal: Denies vomiting Neurologic: Denies syncope and Reports weakness Exam Narrative: EXAMINATION OF ORGAN SYSTEMS/BODY AREAS: Constitutional: Vital signs per nursing GENERAL:[No acute distress, non-toxic appearing.] HEAD: Normal with no signs of head trauma. EYES: EOMI, conjunctiva normal ENT: Hearing grossly intact LUNGS: Nonlabored breathing. NEURO: [Alert. No gross focal sensory or strength deficits.] PSYCH: Normal affect Course Vital Signs Vital signs: Vital Signs Temperature 36.6 C 05/06/25 17:03 Pulse Rate 82 05/06/25 17:03 Respiratory Rate 18 05/06/25 17:03 Blood Pressure 148/86 H 05/06/25 17:03 Pulse Oximetry 99 05/06/25 17:03 Oxygen Delivery Room Air 05/06/25 17:03 Temperature 36.6 C 05/06/25 17:03 Pulse Rate 82 05/06/25 17:03 Respiratory Rate 18 05/06/25 17:03 Blood Pressure 148/86 H 05/06/25 17:03 Pulse Oximetry 99 05/06/25 17:03 Oxygen Delivery Room Air 05/06/25 17:03 MDM Differential Diagnosis Differential Diagnosis: 44-year-old female with recent ablation presents with chest pain shortness of breath. I discussed the patient that I am concerned for possible episodes of sustained ventricular tachycardia versus possible atypical presentation of ACS. She had been in the department for stents appeared timely time I saw her and she is requesting Aleve without full medical evaluation. She has capacity understands the risks that I am unable to rule out limb or life threatening emergencies. She feels confident with her ability to follow-up, she is without any chest pain or shortness of breath currently is appropriate vital signs, told her she is welcome to return if she changed her mind and otherwise again side to leave against medical advice with intact capacity Discharge Plan Discharge Clinical Impression: Chest pain Patient Disposition: Left Against Medical Advice Condition: Serious Instructions: Chest Pain (ED) Patient Language: [place] Tim[place]se Follow-up/Referrals: Joao,MARILYN Johnston [Non-Staff, Unknown] Time of Disposition: 20:48
== END 2025-05-06 20:51 | disposition left against medical advice (07) ==
LOC: ANHED 20:41
PROVIDERS: Emergency Provider Emergency Medicine; PCP Internal Medicine
DX: R07.9 Chest pain, unspecified (principal); R94.31 Abnormal electrocardiogram [ECG] [EKG]
CPT/HCPCS: 93005; 99283